=== PATIENT | female | born 1945 | race Caucasian/White ===

== ENCOUNTER 2016-10-25 12:26 | Inpatient (IN) | payer OTHER ==
[2016-10-25 13:05] VITALS: BMI 17.4
--- NOTE | 2016-10-25 17:15 | PDOC ---
History of Present Illness - General Chief Complaint: Weakness Stated Complaint: REVISIT/ FALL, EYE PAIN, VISION LOSS Time Seen by Provider: 10/25/16 15:18 History Source: Patient Exam Limitations: No Limitations - History of Present Illness Initial Comments: 10/25/16 19:06 Patient is a 71 year old female, from [facility], with significant medical hx of dwarfism, SIB, constipation, hypertension, hypothyroidism, cardiac valve defect, hypercholesterolemia, low platelet count, seizures (15-29 years ago), who is presenting to the ED with difficulty ambulating s/p fall. The patient was seen in the ED last night at 4 am after falling out of bed with bruising around her right eye. She received a head CT during her previous visit. The patient returned to the ED today because she is having difficulty ambulating and marine cargo surveyor feels that she needs further evaluation. Patient denies any pain. History may be limited due to the pts MR Past History - Past Medical History Allergies/Adverse Reactions: Allergies Allergy/AdvReac Type Severity Reaction Status Date / Time No Known Allergies Allergy Verified 10/25/16 12:57 Home Medications: Ambulatory Orders Ascorbic Acid [Vitamin C -] 500 mg PO BID 10/26/16 Calcium Carbonate/Vitamin D3 [Oystercal-D 500 mg-400 Unit Tb] 1 each PO BID 12/07 Clotrimazole [Lotrimin AF] 12 gm TP BID 10/26/16 Eltrombopag Olamine [Promacta] 25 mg PO DAILY 10/26/16 Lactulose [Cephulac -] 10 gm PO DAILY 10/26/16 Levothyroxine [Synthroid -] 50 mcg PO ASDIR 10/26/16 Multivitamins [Tab-A-Vit -] 1 tab PO DAILY 10/26/16 Seizures: Yes Thyroid Disease: Yes (HYPO) Other medical history: MR - Psycho/Social/Smoking Cessation Hx Suicidal Ideation: No Smoking History: Never smoked Have you smoked in the past 12 months: No Hx Alcohol Use: No Drug/Substance Use Hx: No Review of Systems - Review of Systems Able to Perform ROS?: Yes Comments:: 10/25/16 19:07 limited due to MR *Physical Exam - Vital Signs Last Vital Signs Temp Pulse Resp BP Pulse Ox 68 19 144/82 97 10/25/16 12:57 10/25/16 12:57 10/25/16 12:57 10/25/16 12:57 - Physical Exam Comments: 10/25/16 19:08 GENERAL: The patient is awake, alert, Nontoxic - in no acute distress. HEAD: Normocephalic, periorbitla ecchymosis/edema, no focal tenderness on orbits. EYES: EOMI of R eye, pupils 3mma nd reactive to light, (gaze deviation of the L eye - chronic), pt able to track my fingers and face ENT: Normal voice, Moist mucous membranes. NECK: Normal range of motion, supple, no midline cervical/thoraicic/lumbar tenderness LUNGS: Breath sounds equal, clear to auscultation bilaterally. No wheezes, no rhonchi, no rales. HEART: Regular rate and rhythm, ABDOMEN: Soft, nontender, normoactive bowel sounds. EXTREMITIES: Normal range of motion, no edema. No clubbing or cyanosis. No cords, erythema, or tenderness. NEUROLOGICAL: No facial assymetry, Normal speech, moving all 4 extmreiities spontnaoeusly and symmetircly SKIN: Warm, Dry, normal turgor, ED Treatment Course - LABORATORY CBC & Chemistry Diagram: 10/28/16 06:15 10/27/16 06:15 Medical Decision Making - Medical Decision Making 10/25/16 17:36 71y F hx of MR, ?thrombocytopenia represents to the ED for evaluation of ? vision changes in her R eye s/p fall and evaluation last night and had negative imaging and was discharged. Per aide, the pt was walking alittle unsteady earlier today so she was brought back for reevaluation. The pt dnies any current headache, the pt also states she is able to see, however her history may be limited due to the patients MR. livingston is able to see grossly, but ability to evaluate her vision is limited due to the patients MR - unclear if she can count, and she cannot read. will send labs to r/o low platelets the pt is able to ambulate, although alittle slowly. neuro exam otherwise unremarkable suspect the slow gait may be due to her vision obsruction due to periorbital edema. 10/25/16 19:51 awaiting platelets will sign the pt ou tto dr. gaines to fu with labs and dispo the patient if platelets lwo will obtain repeat CT if neg will dc the pt to fu with opthomalogy for further evaluation. *DC/Admit/Observation/Transfer Diagnosis at time of Disposition: Closed head injury, Thrombocytopenia - Discharge Dispostion Disposition: TRANSFER ACUTE CARE/OTHER HOSP
[2016-10-25 22:26] LABS: BASOPHIL 0.2 % (0-2.0); EOSINOPHIL 4.3 % (0-4.5); MCH 34.2 pg (25.7-33.7); MCHC 34.3 g/dl (32.0-36.0); MEAN CELL VOLUME 99.7 fl (80-96); MEAN PLT VOLUME 12.6 fl (7.5-11.1); NEUTROPHILS 50.5 % (42.8-82.8); RDW 14.6 % (11.6-15.6); WHITE BLOOD COUNT 3.1 K/mm3 (4.0-10.0)
[2016-10-25 22:47] LABS: ALBUMIN 3.4 g/dl (3.4-5.0); CALCIUM 9.6 mg/dL (8.5-10.1)
[2016-10-25 22:48] LABS: BILIRUBIN,TOTAL 0.3 mg/dL (0.2-1.0)
[2016-10-25 23:02] LABS: PLATELET COUNT 6 K/MM3 (134-434)
--- NOTE | 2016-10-25 23:10 | PDOC ---
*Physical Exam - Vital Signs Last Vital Signs Temp Pulse Resp BP Pulse Ox 68 19 144/82 97 10/25/16 12:57 10/25/16 12:57 10/25/16 12:57 10/25/16 12:57 <Rob Cummings - Last Filed: 10/25/16 23:18> - Vital Signs Last Vital Signs Temp Pulse Resp BP Pulse Ox 68 19 144/82 97 10/25/16 12:57 10/25/16 12:57 10/25/16 12:57 10/25/16 12:57 <Lizzy Delacruz - Last Filed: 10/26/16 02:15> Heart Score/ECG Review - ECG Impressions Comment:: 10/26/16 02:14 NSR @70bpm Normal ECG <Lizzy Delacruz - Last Filed: 10/26/16 02:15> ED Treatment Course - LABORATORY CBC & Chemistry Diagram: 10/25/16 21:55 10/25/16 21:55 - ADDITIONAL ORDERS Additional order review: Laboratory Results 10/25/16 10/25/16 21:55 18:03 Sodium 146 H Cancelled Potassium 4.0 Cancelled Chloride 106 Cancelled Carbon Dioxide 33 H Cancelled Anion Gap 7 L Cancelled BUN 26 H Cancelled Creatinine 1.0 Cancelled Creat Clearance w eGFR 54.97 Cancelled Random Glucose 87 Cancelled Calcium 9.6 Cancelled Total Bilirubin 0.3 Cancelled AST 71 H Cancelled ALT 81 H Cancelled Alkaline Phosphatase 90 Cancelled Total Protein 7.0 Cancelled Albumin 3.4 Cancelled 10/25/16 10/25/16 21:55 18:03 RBC 3.28 L MCV 99.7 H MCHC 34.3 RDW 14.6 MPV 12.6 H Neutrophils % 50.5 Y Lymphocytes % 36.7 Y Monocytes % 8.3 Eosinophils % 4.3 Basophils % 0.2 - RADIOLOGY Radiology Studies Ordered: Category Date Time Status HEAD CT WITHOUT CONTRAST [CT] Stat CT Scan 10/25/16 23:01 Ordered <Rob Cummings - Last Filed: 10/25/16 23:18> - LABORATORY CBC & Chemistry Diagram: 10/25/16 21:55 10/25/16 21:55 - ADDITIONAL ORDERS Additional order review: Laboratory Results 10/25/16 10/25/16 21:55 18:03 Sodium 146 H Cancelled Potassium 4.0 Cancelled Chloride 106 Cancelled Carbon Dioxide 33 H Cancelled Anion Gap 7 L Cancelled BUN 26 H Cancelled Creatinine 1.0 Cancelled Creat Clearance w eGFR 54.97 Cancelled Random Glucose 87 Cancelled Calcium 9.6 Cancelled Total Bilirubin 0.3 Cancelled AST 71 H Cancelled ALT 81 H Cancelled Alkaline Phosphatase 90 Cancelled Total Protein 7.0 Cancelled Albumin 3.4 Cancelled 10/25/16 10/25/16 21:55 18:03 RBC 3.28 L MCV 99.7 H MCHC 34.3 RDW 14.6 MPV 12.6 H Neutrophils % 50.5 Y Lymphocytes % 36.7 Y Monocytes % 8.3 Eosinophils % 4.3 Basophils % 0.2 <Lizzy Delacruz - Last Filed: 10/26/16 02:15> Medical Decision Making - Medical Decision Making 10/25/16 23:15 h/o of thrombocytopenia. As per the power tool repair technician, patients platelets usually run between 30,000 and 60,000. Labs came, showing that patients platelets are 6, 000. No signs of active bleeding at this time. Repeat CT to r/o brain hemorrhage <Lizzy Delacruz - Last Filed: 10/26/16 02:15> *DC/Admit/Observation/Transfer - Discharge Dispostion Admit: Yes <Rob Cummings - Last Filed: 10/25/16 23:18> <Lizzy Delacruz - Last Filed: 10/26/16 02:15> Diagnosis at time of Disposition: Closed head injury, Thrombocytopenia
[2016-10-26 00:57] LABS: INR 0.95 (0.82-1.09); PROTHROMBIN TIME (PATIENT) 10.4 SEC (9.98-11.88)
--- NOTE | 2016-10-26 00:57 | HP ---
CHIEF COMPLAINT: Falls, Unsteady gait, easy bruising PCP: Not on Staff Acute Care Clinical Nurse Specialist: Dr. Sahu [facility] ([address] [place] [address]) [phone] HISTORY OF PRESENT ILLNESS: This is a 71 y/o female with a past medical history of Dwarfism, SIB, Constipation, Hypertension, Hypothyroidism, Cardiac Valve Defect.Who is presents to the ED with difficulty ambulating s/p fall. The patient was seen in the ED last night at 4 am after falling out of bed with bruising around her right eye. She received a head CT during her previous visit. The patient returned to the ED today because she is having difficulty ambulating and economics consultant feels that she needs further evaluation. Per caregiver patient has been bruising more easily x 1 week. She reports the patient's baseline PLTs- 30, 000- 40,000. Patient denies any pain. History may be limited due to the pts MR. ER course was notable for: (1) Platelets 6,000 (2) Head CT- neg ICH (3) EKG-pending Recent Travel: None PAST MEDICAL HISTORY: See HPI PAST SURGICAL HISTORY: See HPI Social History: Smoking: None Alcohol: None Drugs: None Resides in [facility] Family History: Unknown Allergies No Known Allergies Allergy (Verified 10/25/16 12:57) HOME MEDICATIONS: Home Medications Medication Instructions Recorded Ascorbic Acid [Vitamin C -] 500 mg PO BID 10/26/16 Calcium Carbonate/Vitamin D3 1 each PO BID 10/26/16 [Oystercal-D 500 mg-400 Unit Tb] Clotrimazole [Lotrimin AF] 12 gm TP BID 10/26/16 Eltrombopag Olamine [Promacta] 25 mg PO DAILY 10/26/16 Lactulose [Cephulac -] 10 gm PO DAILY 10/26/16 Levothyroxine [Synthroid -] 50 mcg PO ASDIR 10/26/16 Multivitamins [Tab-A-Vit -] 1 tab PO DAILY 10/26/16 REVIEW OF SYSTEMS Per patient's Guardian (patient has MR) CONSTITUTIONAL: Absent: fever, chills, diaphoresis, generalized weakness, malaise, loss of appetite, weight change HEENT: Absent: rhinorrhea, nasal congestion, throat pain, throat swelling, difficulty swallowing, mouth swelling, ear pain, eye pain, visual changes CARDIOVASCULAR: Absent: chest pain, syncope, palpitations, irregular heart rate, lightheadedness , peripheral edema RESPIRATORY: Absent: cough, shortness of breath, dyspnea with exertion, orthopnea, wheezing, stridor, hemoptysis GASTROINTESTINAL: Absent: abdominal pain, abdominal distension, nausea, vomiting, diarrhea, constipation, melena, hematochezia GENITOURINARY: Absent: dysuria, frequency, urgency, hesitancy, hematuria, flank pain, genital pain MUSCULOSKELETAL: Absent: myalgia, arthralgia, joint swelling, back pain, neck pain SKIN: Absent: rash, itching, pallor HEMATOLOGIC/IMMUNOLOGIC: easy bruising Absent: easy bleeding, lymphadenopathy, frequent infections ENDOCRINE: Absent: unexplained weight gain, unexplained weight loss, heat intolerance, cold intolerance NEUROLOGIC: unsteady gait Absent: headache, focal weakness or paresthesias, dizziness, seizure, mental status changes, bladder or bowel incontinence PSYCHIATRIC: Absent: anxiety, depression, suicidal or homicidal ideation, hallucinations. PHYSICAL EXAMINATION Vital Signs - 24 hr 10/25/16 12:57 Pulse Rate 68 Respiratory 19 Rate Blood Pressure 144/82 O2 Sat by Pulse 97 Oximetry (%) GENERAL: Awake, alert, and oriented to baseline, in no acute distress. HEAD: Normal with no signs of trauma. EYES: +eccyhomtic bruising, swelling to r-eye/orbit EARS, NOSE, THROAT: Ears normal, nares patent, oropharynx clear without exudates. Moist mucous membranes. NECK: Normal range of motion, supple without lymphadenopathy, JVD, or masses. LUNGS: Breath sounds equal, clear to auscultation bilaterally. No wheezes, and no crackles. No accessory muscle use. HEART: Regular rate and rhythm, normal S1 and S2 without murmur, rub or gallop. ABDOMEN: Soft, nontender, not distended, normoactive bowel sounds, no guarding, no rebound, no masses. No hepatomegaly or splenomegaly. MUSCULOSKELETAL: Normal range of motion at all joints. No bony deformities or tenderness. No CVA tenderness. UPPER EXTREMITIES: 2+ pulses, warm, well-perfused. No cyanosis. No clubbing. No peripheral edema. LOWER EXTREMITIES: 2+ pulses, warm, well-perfused. No calf tenderness. No peripheral edema. NEUROLOGICAL: Cranial nerves II-XII intact. Normal speech. Gait not observed. PSYCHIATRIC: Cooperative. Limited eye contact. Appropriate mood and affect. SKIN: +petecchial rash to lower legs. Warm, dry, normal turgor, eccyhmotic bruising to bilateral medial upper thighs noted, normal capillary refill. Laboratory Results - last 24 hr 10/25/16 10/25/16 10/25/16 18:03 18:03 21:55 WBC 3.1 L RBC 3.28 L Hgb 11.2 Hct 32.7 MCV 99.7 H MCHC 34.3 RDW 14.6 Plt Count 6 L* MPV 12.6 H Neutrophils % Y 50.5 Lymphocytes % Y 36.7 Monocytes % 8.3 Eosinophils % 4.3 Basophils % 0.2 Sodium Cancelled Potassium Cancelled Chloride Cancelled Carbon Dioxide Cancelled Anion Gap Cancelled BUN Cancelled Creatinine Cancelled Creat Clearance w eGFR Cancelled Random Glucose Cancelled Calcium Cancelled Total Bilirubin Cancelled AST Cancelled ALT Cancelled Alkaline Phosphatase Cancelled Total Protein Cancelled Albumin Cancelled 10/25/16 21:55 WBC RBC Hgb Hct MCV MCHC RDW Plt Count MPV Neutrophils % Lymphocytes % Monocytes % Eosinophils % Basophils % Sodium 146 H Potassium 4.0 Chloride 106 Carbon Dioxide 33 H Anion Gap 7 L BUN 26 H Creatinine 1.0 Creat Clearance w eGFR 54.97 Random Glucose 87 Calcium 9.6 Total Bilirubin 0.3 AST 71 H ALT 81 H Alkaline Phosphatase 90 Total Protein 7.0 Albumin 3.4 ASSESSMENT/PLAN: This is a 71 y/o female with a PMHx of Dwarfism, SIB, HTN, Hypothyroidism, Cardiac Valve Defect. Admitted for Acute Thrombocytopenia for further evaluation of their emergent condition. Problem List - Problem (1) Closed head injury Assessment/Plan: - s/p fall OOB - CT Brain- neg ICH - Fall Precautions Code(s): S09.90XA - UNSPECIFIED INJURY OF HEAD, INITIAL ENCOUNTER (2) Contusion of right orbital tissues Assessment/Plan: - s/p Fall OOB - CT Brain- no ICH - Continue to monitor and treat with interventions accordingly - Tylenol prn Code(s): S05.11XA - CONTUSION OF EYEBALL AND ORBITAL TISSUES, RIGHT EYE, INIT (3) Thrombocytopenia Assessment/Plan: - Baseline (30-40,000) per patient's Guardian at [facility] - Platelets x1 given on floor - Continue Promacta - Appreciate Acute Care Clinical Nurse Specialist Consult - Monitor CBC - Monitor vitals Code(s): D69.6 - THROMBOCYTOPENIA, UNSPECIFIED (4) Dwarfism Code(s): E34.3 - SHORT STATURE DUE TO ENDOCRINE DISORDER (5) Hypertension Assessment/Plan: - Monitor BP - Continue home med Code(s): I10 - ESSENTIAL (PRIMARY) HYPERTENSION (6) Hypothyroid Assessment/Plan: - Continue home med - TSH in am Code(s): E03.9 - HYPOTHYROIDISM, UNSPECIFIED (7) DVT prophylaxis Assessment/Plan: - TEDs - SCDs - Hold AC secondary to Low Platelets Code(s): LPQ5082 - Visit type - Emergency Visit Emergency Visit: Yes ED Registration Date: 10/25/16 Care time: The patient presented to the Emergency Department on the above date and was hospitalized for further evaluation of their emergent condition. - New Patient This patient is new to me today: Yes Date on this admission: 10/26/16 - Critical Care Critical Care patient: No
[2016-10-26] MEDS ORDERED: LEVOTHYROXINE NA 50 MCG TABLET (FP) PO SCH (08:00)
[2016-10-26] MEDS ORDERED: PT OWN MED DRAWER 7, Y5N ONE ×2 (09:08→12:33)
[2016-10-26] MEDS: ASCORBIC ACID 500 MG TABLET (FP) PO SCH ×2 (09:24→22:17)
[2016-10-26] MEDS: CALCIUM 500MG/VIT-D 200 UNITS COMBO TABLET (FP) PO SCH ×2 (09:24→22:12)
[2016-10-26] MEDS: MULTIVITAMINS (DAILY MVI) TABLET (FP) PO SCH (09:24)
[2016-10-26] MEDS: LACTULOSE 20 GM/30 ML UDC (FOR ORAL USE ONLY) PO SCH (09:25)
[2016-10-26 09:28] LABS: BASOPHIL 0.1 % (0-2.0); EOSINOPHIL 2.5 % (0-4.5); MCH 34.3 pg (25.7-33.7); MEAN CELL VOLUME 100.8 fl (80-96); MEAN PLT VOLUME 8.9 fl (7.5-11.1); NEUTROPHILS 78.7 % (42.8-82.8); PLATELET COUNT 105 K/MM3 (134-434); RDW 14.6 % (11.6-15.6); WHITE BLOOD COUNT 5.1 K/mm3 (4.0-10.0)
[2016-10-26] MEDS: LEVOTHYROXINE NA 50 MCG TABLET (FP) PO SCH (11:08)
--- NOTE | 2016-10-26 11:20 | EKG ---
Test Reason : Blood Pressure : / mmHG Vent. Rate : 070 BPM Atrial Rate : 070 BPM P-R Int : 120 ms QRS Dur : 066 ms QT Int : 394 ms P-R-T Axes : 064 067 038 degrees QTc Int : 425 ms POOR DATA QUALITY, INTERPRETATION MAY BE ADVERSELY AFFECTED NORMAL SINUS RHYTHM NORMAL ECG NO PREVIOUS ECGS AVAILABLE Confirmed by MARCO ANTONIO DENNISON MD ([id number]) on 10/26/2016 11:19:43 AM Referred By: Confirmed By:MARCO ANTONIO DENNISON MD
[2016-10-26] MEDS: CLOTRIMAZOLE 1% CREAM 15 GM TUBE TP SCH ×2 (11:40→22:17)
[2016-10-26] MEDS: ELTROMBOPAG OLAMINE 25 MG PO SCH (12:30)
[2016-10-27] MEDS: LEVOTHYROXINE NA 50 MCG TABLET (FP) PO SCH (06:08)
[2016-10-27 08:17] LABS: BASOPHIL 0.5 % (0-2.0); MCH 34.6 pg (25.7-33.7); MCHC 34.1 g/dl (32.0-36.0); MEAN CELL VOLUME 101.3 fl (80-96); MEAN PLT VOLUME 10.2 fl (7.5-11.1); NEUTROPHILS 40.6 % (42.8-82.8); PLATELET COUNT 53 K/MM3 (134-434); RDW 14.7 % (11.6-15.6); WHITE BLOOD COUNT 2.9 K/mm3 (4.0-10.0)
[2016-10-27 08:42] LABS: BILIRUBIN,TOTAL 0.3 mg/dL (0.2-1.0); CALCIUM 9.3 mg/dL (8.5-10.1); MAGNESIUM 1.7 mg/dL (1.8-2.4); PHOSPHOROUS 2.6 mg/dL (2.5-4.9); TOT PROT 6.1 g/dl (6.4-8.2)
[2016-10-27] MEDS ORDERED: PT OWN MED DRAWER 7, Y5N ONE ×3 (10:53→14:53)
[2016-10-27] MEDS: CALCIUM 500MG/VIT-D 200 UNITS COMBO TABLET (FP) PO SCH ×2 (10:54→21:11)
[2016-10-27] MEDS: ELTROMBOPAG OLAMINE 25 MG PO SCH (10:54)
[2016-10-27] MEDS: ASCORBIC ACID 500 MG TABLET (FP) PO SCH ×2 (10:54→21:11)
[2016-10-27] MEDS: MULTIVITAMINS (DAILY MVI) TABLET (FP) PO SCH (10:54)
[2016-10-27] MEDS: LACTULOSE 20 GM/30 ML UDC (FOR ORAL USE ONLY) PO SCH (10:54)
[2016-10-27] MEDS: CLOTRIMAZOLE 1% CREAM 15 GM TUBE TP SCH ×2 (10:55→22:17)
--- NOTE | 2016-10-27 12:53 | CONSULT ---
Consult Consult Specialty:: Hematology Referred by:: George Negrete Reason for Consultation:: severely low platelets on admission after a fall - History of Present Illness Chief Complaint: s/p fall, injured R orbital area History of Present Illness: 71 y/o F w hx dwarfism , MR, living at [place] , reportedly fell and hit R side of head ; CT head on admission showed no bleed , but pt had large ecchymotic R periorbital area ; no change in MS or blackout reported. She is a long-time patient w ITP who has been refractory to several standard Rx's such as IVIg and steroids ; recently pt on Promacta 25mg qd but it appears it is not keeping platelets >10K. After platelet Tx here plates >50 K , but likely to fall again . - History Source History Provided By: Medical Record Limitations to Obtaining History: Physical Impairment - Past Medical History WOOLEN TESTER: Yes: Other Cardio/Vascular: Yes: HTN Pulmonary: No: Asthma, Bronchitis, Cancer, COPD, O2 Dependent, Pneumonia, Previously Intubated, Pulmonary Embolus, Pulmonary Fibrosis, Sleep Apnea, Other Gastrointestinal: Yes: Constipation. No: Ascites, Cancer, Crohn's Disease, Diverticulitis, Diverticulosis, Esophageal Varices, Gastritis, GERD, GI Bleed, Hemorrhoids, Hiatal Hernia, Inflamatory Bowel Disease, Irritable Bowel Disease, Pancreatitis, Peptic Ulcer Disease, Ulcerative Colitis, Other Hepatobiliary: No: Cirrhosis, Cholelithiasis, Cholecystitis, Choledocholithiasis , Hepatitis A, Hepatitis B, Hepatitis C, Other Renal/: No: Renal Failure, Renal Inusuff, BPH, Cancer, Hematuria, Hemodialysis , Neurogenic Bladder, Renal Calculi, UTI, Other Heme/Onc: Yes: Thrombocytopenia Infectious Disease: No: AIDS, C-Diff, Herpes Zoster, HIV, MRSA, STD's, Tuberculosis, VREF, Other Psych: Yes: Other (MR/Dwarfism) Musculoskeletal: No: Bursitis, Chronic low back pain, Hemiparesis, Hemiplegia, Osteoarthritis, Paraplegia, Other Rheumatology: No: Fibromyalgia, Gout, Lupus, Rheumatoid Arthritis, Sarcoidosis, Vasculitis, Other Endocrine: Yes: Hypothyroidism Dermatology: No: Basal Cell, Cellulitis, Eczema, Melanoma, Psoriasis, Squamous Cell, Other - Past Surgical History Past Surgical History: Yes: None - Alcohol/Substance Use Hx Alcohol Use: No - Smoking History Smoking history: Never smoked Have you smoked in the past 12 months: No Home Medications - Allergies Allergies/Adverse Reactions: Allergies Allergy/AdvReac Type Severity Reaction Status Date / Time No Known Allergies Allergy Verified 10/25/16 12:57 - Home Medications Home Medications: Ambulatory Orders Ascorbic Acid [Vitamin C -] 500 mg PO BID 10/26/16 Calcium Carbonate/Vitamin D3 [Oystercal-D 500 mg-400 Unit Tb] 1 each PO BID 12/07 Clotrimazole [Lotrimin AF] 12 gm TP BID 10/26/16 Eltrombopag Olamine [Promacta] 25 mg PO DAILY 10/26/16 Lactulose [Cephulac -] 10 gm PO DAILY 10/26/16 Levothyroxine [Synthroid -] 50 mcg PO ASDIR 10/26/16 Multivitamins [Tab-A-Vit -] 1 tab PO DAILY 10/26/16 Review of Systems Unable to obtain ROS, reason: MR Physical Exam Vital Signs: Vital Signs Temperature 97.5 F L 10/27/16 09:00 Pulse Rate 80 10/27/16 09:00 Respiratory Rate 20 10/27/16 09:00 Blood Pressure 125/65 10/27/16 09:00 O2 Sat by Pulse Oximetry (%) 96 10/26/16 21:00 Constitutional: Yes: Well Nourished, No Distress, Calm Eyes: Yes: WNL, Conjunctiva Clear, EOM Intact HENT: Yes: Other (ecchymosis) Neck: Yes: WNL, Supple, Trachea Midline Cardiovascular: Yes: WNL, Regular Rate and Rhythm Respiratory: Yes: WNL, Regular, CTA Bilaterally Gastrointestinal: Yes: WNL, Normal Bowel Sounds, Soft Musculoskeletal: Yes: WNL Edema: No Integumentary: Yes: WNL (except for eyelid) Labs: CBC, BMP 10/27/16 06:15 10/27/16 06:15 Problem List - Problems (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 She will have to be monitored closely dy Dr Sahu at the [facility]. Continue Promacta for now
[2016-10-27] MEDS ORDERED: POTASSIUM CHLORIDE ORAL LIQUID 20 MEQ/15 ML PO ONE (13:15)
[2016-10-27] MEDS ORDERED: MAGNESIUM SULF 50% (8.12 MEQ/2 ML-1 GM VIAL) IVPB ONE (13:15)
[2016-10-27 15:29] LABS: URINE APPEARANCE CLEAR; URINE BILIRUBIN NEGATIVE (NEGATIVE); URINE BLOOD NEGATIVE (NEGATIVE); URINE COLOR LTYELLOW; URINE GLUCOSE (UA) NEGATIVE (NEGATIVE); URINE KETONE NEGATIVE (NEGATIVE); URINE LEUK ESTERASE NEGATIVE (NEGATIVE); URINE NITRITE NEGATIVE (NEGATIVE); URINE PROTEIN NEGATIVE (NEGATIVE); URINE UROBILINOGEN NEGATIVE E.U./dl (0.2-1.0)
--- NOTE | 2016-10-27 17:44 | PN ---
Physical Exam: SUBJECTIVE: Patient seen and examined. She has no complaints, she is eating on her own. Aid at bedside OBJECTIVE: Vital Signs Period Temp Pulse Resp BP Sys/Rae Pulse Ox Last 24 Hr 97.1 F-97.8 F 57-82 18-20 97-125/52-65 96-98 PE Neuro: alert, awake, cn 2-12intact HEENT: R eye hematoma, R eye visual acuity diminished Pulm: CTAB CV: s1 s2 rrr no mrg Abd: s nt nd +bs Ext: le petechiae, no le edema Laboratory Results - last 24 hr 10/27/16 10/27/16 10/27/16 06:15 06:15 14:30 WBC 2.9 L D RBC 2.71 L Hgb 9.4 L Hct 27.4 L MCV 101.3 H MCHC 34.1 RDW 14.7 Plt Count 53 L D MPV 10.2 D Neutrophils % 40.6 L D Lymphocytes % 37.8 D Monocytes % 14.1 H D Eosinophils % 7.0 H D Basophils % 0.5 D Sodium 147 H Potassium 3.4 L Chloride 107 Carbon Dioxide 35 H Anion Gap 5 L BUN 20 H D Creatinine 1.0 Creat Clearance w eGFR 54.97 Random Glucose 76 Calcium 9.3 Phosphorus 2.6 Magnesium 1.7 L Total Bilirubin 0.3 AST 52 H D ALT 69 Alkaline Phosphatase 76 Total Protein 6.1 L Albumin 3.0 L Urine Color Ltyellow Urine Appearance Clear Urine pH 7.0 Ur Specific [place] 1.009 Urine Protein Negative Urine Glucose (UA) Negative Urine Ketones Negative Urine Blood Negative Urine Nitrite Negative Urine Bilirubin Negative Urine Urobilinogen Negative Ur Leukocyte Esterase Negative Active Medications Generic Name Dose Route Start Last Admin Trade Name Anselmoq PRN Reason Stop Dose Admin Ascorbic Acid 500 mg 10/26/16 10:00 10/27/16 10:54 Vitamin C - PO 500 mg BID BENNY Administration Calcium Carbonate/Cholecalciferol 1 tab 10/26/16 10:00 10/27/16 10:54 Os-Blayne 500+D - PO 1 tab BID BENNY Administration Clotrimazole 1 applic 10/26/16 10:00 10/27/16 10:55 Lotrimin 1% Cream - TP 1 applic BID BENNY Administration Lactulose 10 gm 10/26/16 10:00 10/27/16 10:54 Cephulac (Oral Use) PO 10 gm DAILY BENNY Administration Levothyroxine Sodium 50 mcg 10/26/16 10:15 10/27/16 06:08 Synthroid - PO 50 mcg DAILY@0700 BENNY Administration Multivitamins/Minerals/Vitamin C 1 tab 10/26/16 10:00 10/27/16 10:54 Tab-A-Vit - PO 1 tab DAILY BENNY Administration Non-Formulary Medication 25 mg 10/26/16 11:30 10/27/16 10:54 Eltrombopag Olamine [Promacta] PO 25 mg DAILY BENNY Administration Assessment: 71 year old female hx dwarfism, MR, living at [place] admitted s/p fall to R side of head with AMS per AID. Found to have severe thrombocytopenia. Plan: 1. ITP - Transfused 1 units platelets, however now levels downtrending - D/w Hematology, failed several treatment options, since been on Promacta 25mg daily and appears to not be working - Transfer initiated to transfer to [facility] for splenectomy under Primary composing room machinist apprentice service Dr. Sandra Woodson; awaiting confirmation - Discussed with legal guardian aSrah she is aware of transfer and agrees 2.Hypothyroid - Continue synthroid 3. Hypokalemia - Replete 20meq potassium x1 4. Hypomagnesemia - replete 2gm mg x1 Visit type - Emergency Visit Emergency Visit: Yes ED Registration Date: 10/25/16 Care time: The patient presented to the Emergency Department on the above date and was hospitalized for further evaluation of their emergent condition. - New Patient This patient is new to me today: Yes Date on this admission: 10/27/16 - Critical Care Critical Care patient: No
[2016-10-28] MEDS: LEVOTHYROXINE NA 50 MCG TABLET (FP) PO SCH (06:23)
[2016-10-28 06:29] VITALS: BP 95/55; PULSE 81; TEMP 97.5
[2016-10-28] MEDS ORDERED: PT OWN MED DRAWER 7, Y5N ONE (07:29)
[2016-10-28 08:49] LABS: BASOPHIL 0.3 % (0-2.0); EOSINOPHIL 4.6 % (0-4.5); MCH 33.8 pg (25.7-33.7); MCHC 33.3 g/dl (32.0-36.0); MEAN CELL VOLUME 101.3 fl (80-96); MEAN PLT VOLUME 9.8 fl (7.5-11.1); NEUTROPHILS 53.5 % (42.8-82.8)
[2016-10-28 09:12] LABS: PLATELET COUNT 18 K/MM3 (134-434)
--- NOTE | 2016-10-28 12:16 | DS ---
Physical Examination Vital Signs: Vital Signs Temperature 97.5 F L 10/28/16 06:28 Pulse Rate 81 10/28/16 06:28 Respiratory Rate 18 10/28/16 06:28 Blood Pressure 95/55 10/28/16 06:28 O2 Sat by Pulse Oximetry (%) 97 10/27/16 21:00 Labs: CBC, BMP 10/28/16 06:15 10/27/16 06:15 Discharge Summary Reason For Visit: THROMBOCYTOPENIA CLOSED HEAD INJURY Hospital Course: 71 year old female hx dwarfism, MR, living [place] [facility] admitted s/p fall to R side of head with AMS per AID. Found to have severe thrombocytopenia. Plan: 1. ITP - Transfused 1 units platelets, however now levels downtrending - D/w Hematology, failed several treatment options, since been on Promacta 25mg daily and appears to not be working - Transfer initiated to transfer to [facility] for splenectomy under Primary tape recording machine operator service Dr. Sandra Woodson; awaiting confirmation - Discussed with legal guardian Sarah she is aware of transfer and agrees 2.Hypothyroid - Continue synthroid 3. Hypokalemia - Replete 20meq potassium x1 4. Hypomagnesemia - replete 2gm mg x1 Patient transferred to [facility] prior to me evaluating them - Instructions Disposition: TRANSFER ACUTE CARE/OTHER HOSP - Home Medications Comprehensive Discharge Medication List: Ambulatory Orders Ascorbic Acid [Vitamin C -] 500 mg PO BID 10/26/16 Calcium Carbonate/Vitamin D3 [Oystercal-D 500 mg-400 Unit Tb] 1 each PO BID 12/07 Clotrimazole [Lotrimin AF] 12 gm TP BID 10/26/16 Eltrombopag Olamine [Promacta] 25 mg PO DAILY 10/26/16 Lactulose [Cephulac -] 10 gm PO DAILY 10/26/16 Levothyroxine [Synthroid -] 50 mcg PO ASDIR 10/26/16 Multivitamins [Tab-A-Vit -] 1 tab PO DAILY 10/26/16 This patient is new to me today: Yes Date on this admission: 10/28/16 Emergency Visit: Yes ED Registration Date: 10/25/16 Care time: The patient presented to the Emergency Department on the above date and was hospitalized for further evaluation of their emergent condition. Critical Care patient: No - Discharge Referral Referred to [facility] No
== END 2016-10-28 08:16 | disposition short-term general hospital (02) | DRG 813 ==
LOC: JER 12:26 → JERBED 23:18 → UNDOADMIN 10-26 00:30 → J8W 10-26 02:44
PROVIDERS: ADMIT Internal Medicine; ATTEND Registered Nurse
DX: D69.3 Immune thrombocytopenic purpura (principal); E03.9 Hypothyroidism, unspecified; E87.6 Hypokalemia; E83.42 Hypomagnesemia; I10 Essential (primary) hypertension; S09.90XA Unspecified injury of head, initial encounter; W19.XXXA Unspecified fall, initial encounter; Y92.89 Other specified places as the place of occurrence of the external cause; Y99.9 Unspecified external cause status; S05.11XD Contusion of eyeball and orbital tissues, right eye, subsequent encounter; E34.3 Short stature due to endocrine disorder
CPT/HCPCS: 36415; 36430; 70450-TC; 70486-TC; 71010-TC; 80053; 81003; 83605; 83735; 84100; 84443; 85025; 85610; 85730; 86850; 86900; 86901; 87040; 87254; 87804; 93005; 93010; 97116-GP; 97162-PG; 99281-25; 99282-25; 99285-25; P9034

== ENCOUNTER 2018-08-18 11:28 | Emergency (ER) | payer OTHER ==
[2018-08-18 11:38] VITALS: BMI 21.1
[2018-08-18 12:30] VITALS: TEMP 97.1
--- NOTE | 2018-08-18 12:31 | PDOC ---
History of Present Illness - General Chief Complaint: Diarrhea Stated Complaint: DIARRHEA Time Seen by Provider: 08/18/18 11:57 - History of Present Illness Initial Comments: Kandice Ta is a 73yo woman with dwarfism, intellectual disability, HTN, HLD , s/p splenectomy, h/o seizures (most recent 15-20yrs ago), hypothyroidism, thrombocytopenia, and chronic constipation on lactulose TID who presents with one episode of diarrhea this morning. She was sent by her facility ([facility]) to rule out influenza as other pts there currently have the flu. Ms Ta is minimally verbal and is unable to provide any history. She presents with an aide from [facility] who is unfamiliar with her medical history. As far as she is aware , Ms Ta has not had any recent fevers or respiratory symptoms. Past History - Past Medical History Allergies/Adverse Reactions: Allergies Allergy/AdvReac Type Severity Reaction Status Date / Time No Known Allergies Allergy Verified 08/18/18 11:38 Home Medications: Ambulatory Orders Calcium Carbonate/Vitamin D3 [Oystercal-D 500 mg-400 Unit Tb] 1 each PO BID 12/07 Clotrimazole [Lotrimin AF] 12 gm TP BID 10/26/16 Lactulose [Cephulac -] 10 gm PO DAILY 10/26/16 Levothyroxine [Synthroid -] 50 mcg PO ASDIR 10/26/16 Pedi Multivit 158/Iron/Vit K1 [Cerovite Jr Tablet Chew] 1 tab PO DAILY 08/18/18 COPD: No Seizures: Yes Thyroid Disease: Yes (HYPO) - Suicide/Smoking/Psychosocial Hx Smoking History: Never smoked Have you smoked in the past 12 months: No Hx Alcohol Use: No Drug/Substance Use Hx: No Review of Systems - Review of Systems Comments:: Could not obtain, patient minimally verbal *Physical Exam - Vital Signs Last Vital Signs Temp Pulse Resp BP Pulse Ox 97.1 F L 56 L 18 139/71 97 08/18/18 12:28 08/18/18 11:34 08/18/18 11:34 08/18/18 11:34 08/18/18 11:34 - Physical Exam Comments: General: Comfortable, no acute distress HEENT: PERRL, EOMI, MMM, no LAD, several missing teeth Cards: RRR, no murmur appreciated Pulm: Comfortable on room air, clear to auscultation bilaterally Abd: Soft, nontender, nondistended Ext: Atraumatic. No LE edema. Moves all extremities Vasc: Extremities WWP. Skin: Normal color, no rashes or lesions Neuro: Awake and alert, states name, CN grossly intact, motor/sensory grossly intact and symmetric Psych: Pleasant and cooperative Moderate Sedation - Procedure Monitoring Vital Signs: Procedure Monitoring Vital Signs Temperature 97.1 F L 08/18/18 12:28 Pulse Rate 56 L 08/18/18 11:34 Respiratory Rate 18 08/18/18 11:34 Blood Pressure 139/71 08/18/18 11:34 O2 Sat by Pulse Oximetry (%) 97 08/18/18 11:34 ED Treatment Course - LABORATORY CBC & Chemistry Diagram: 08/18/18 12:55 08/18/18 12:55 Medical Decision Making - Medical Decision Making 08/18/18 12:30 Kandice Ta is a 73yo woman with dwarfism, intellectual disability, HTN, HLD , s/p splenectomy, h/o seizures (most recent 15-20yrs ago), hypothyroidism, thrombocytopenia, and chronic constipation on lactulose TID who presents with one episode of diarrhea this morning. She was sent by her facility ([facility]) to rule out influenza as other pts there currently have the flu. - With one episode of loose stool, especially with h/o lactulose TID and benign abdominal exam, low suspicion for infection. Influenza swab ordered - Oral temp 97.1, difficult to obtain accurately as Ms Ta is unable to cooperate. Rectal temp ordered - If flu negative, will most likely d/c back to her facility. 08/18/18 12:38 - Per aide, Ms Ta has had 2-3 episode of loose stools starting last night. She expressed more concern for dehydration than influenza - CBC, CMP ordered. If needed, will give IVF. 08/18/18 13:47 - Labs reviewed, unremarkable. BUN slightly elevated but unchanged from only previous labs - Influenza negative - Will d/c back to [facility] after fluid bolus 08/18/18 14:38 - Discussed care and follow up with Ms Ta's aide - IV removed, given d/c instructions Discussed with Dr Vegas. Lorenza Mariee PGY1 *DC/Admit/Observation/Transfer Diagnosis at time of Disposition: Diarrhea - Discharge Dispostion Disposition: HOME Condition at time of disposition: Stable Decision to Admit order: No - Referrals - Patient Instructions Printed Discharge Instructions: DI for Diarrhea and Traveler's Diarrhea -- Adult Additional Instructions: Discharge Instructions: - You were seen in the emergency department for diarrhea. - Blood tests were completed, and the results were normal. There was no sign of infection or dehydration - You were given a 500mL fluid bolus - Your diarrhea may be due to one of your medications, lactulose. It is recommended that you stop taking this medication until you can follow up with your regular doctor. - Make an appointment to be seen by your regular doctor within the next 2-3 days to see if you need your medications changed and to follow up any continued loose stools. - Seek immediate medical care if you develop fevers or abdominal pain with your diarrhea, or if you have any medical emergency. - Post Discharge Activity
[2018-08-18] MEDS ORDERED: SODIUM CHLORIDE 0.9% 500 ML INFUS.BAG IV ONE (12:58)
[2018-08-18 13:16] LABS: BASO % 0.2 % (0-2.0); EOS % 2.5 % (0-4.5); HEMOGLOBIN 13.7 GM/dL (10.7-15.3); LYMPH % 33.7 % (8-40); MCH 36.6 pg (25.7-33.7); MCHC 35.1 g/dl (32.0-36.0); MEAN CELL VOLUME 104.2 fl (80-96); MEAN PLT VOLUME 10.4 fl (7.5-11.1); MONO % 14.4 % (3.8-10.2); NEUT % 49.2 % (42.8-82.8); PLATELET COUNT 140 K/MM3 (134-434); RBC 3.74 M/mm3 (3.60-5.2); RDW 14.6 % (11.6-15.6); WHITE BLOOD COUNT 3.2 K/mm3 (4.0-10.0)
[2018-08-18 13:39] LABS: ALBUMIN 3.7 g/dl (3.4-5.0); ALK PHOS 85 U/L (45-117); ANION GAP 5 MMOL/L (8-16); BILIRUBIN,TOTAL 0.2 mg/dL (0.2-1); BLOOD UREA NITROGEN 23 mg/dL (7-18); CALCIUM 9.5 mg/dL (8.5-10.1); CHLORIDE 108 mmol/L (98-107); CO2 29 mmol/L (21-32); CREATININE 0.9 mg/dL (0.55-1.3); GLUCOSE,RANDOM 101 mg/dL (74-106); POTASSIUM 3.9 mmol/L (3.5-5.1); SGOT/AST 37 U/L (15-37); SGPT/ALT 35 U/L (13-61); SODIUM 142 mmol/L (136-145); TOT PROT 7.4 g/dl (6.4-8.2)
--- NOTE | 2018-08-18 14:10 | PDOC ---
Attending Attestation - Resident Resident Name: Lorenza Mariee - ED Attending Attestation I have performed the following: I have examined & evaluated the patient, The case was reviewed & discussed with the resident, I agree w/resident's findings & plan, Exceptions are as noted - HPI HPI: 08/18/18 14:07 73 yo F with h/o MR dwarfism, htn, constipation , nonverbal here wtih concerns for 3 loose stools today. pt has been taking lactulose however for constipation[facility], so they were concerned she may have the flue. no f/c no other concerns. - Physicial Exam PE: 08/18/18 14:09 awake alert eyes open. lungs clear bilat heart rrr no mrg abd soft nt nd. ext wwp no rash. smiling on exam. - Medical Decision Making 08/18/18 14:09 differential effect of lactulose, dehydration electrolyte abnormality. plan labs flu . labs unremarkable, given 20 ml/ kg bolus. flu negative. dc home.
[2018-08-18 14:54] VITALS: BP 132/72; PULSE 61
== END 2018-08-18 14:30 | disposition home or self-care (01) ==
LOC: JER 11:28
DX: R19.7 Diarrhea, unspecified (principal); I10 Essential (primary) hypertension; E78.5 Hyperlipidemia, unspecified; E03.9 Hypothyroidism, unspecified; K59.04 Chronic idiopathic constipation; E34.3 Short stature due to endocrine disorder; F79 Unspecified intellectual disabilities; D69.6 Thrombocytopenia, unspecified; Z86.69 Personal history of other diseases of the nervous system and sense organs; Z90.81 Acquired absence of spleen
CPT/HCPCS: 36415; 80053; 85025; 87804; 99282-25

== ENCOUNTER 2019-04-12 18:18 | Emergency (ER) | payer OTHER ==
--- NOTE | 2019-04-12 18:27 | PDOC ---
History of Present Illness - General Chief Complaint: Urinary Problem Stated Complaint: UTI Time Seen by Provider: 04/12/19 18:27 Past History - Past Medical History Allergies/Adverse Reactions: Allergies Allergy/AdvReac Type Severity Reaction Status Date / Time No Known Allergies Allergy Verified 08/18/18 11:38 Home Medications: Ambulatory Orders Calcium Carbonate/Vitamin D3 [Oystercal-D 500 mg-400 Unit Tb] 1 each PO BID 12/07 Clotrimazole [Lotrimin AF] 12 gm TP BID 10/26/16 Lactulose [Cephulac -] 10 gm PO DAILY 10/26/16 Levothyroxine [Synthroid -] 50 mcg PO ASDIR 10/26/16 Pedi Multivit 158/Iron/Vit K1 [Cerovite Jr Tablet Chew] 1 tab PO DAILY 08/18/18 COPD: No Seizures: Yes Thyroid Disease: Yes (HYPO) - Suicide/Smoking/Psychosocial Hx Smoking History: Never smoked Have you smoked in the past 12 months: No Hx Alcohol Use: No Drug/Substance Use Hx: No *DC/Admit/Observation/Transfer - Discharge Dispostion Condition at time of disposition: Good - Referrals Referrals: Monserrat Wills [Primary Care Provider] - - Patient Instructions - Post Discharge Activity
--- NOTE | 2019-04-12 18:38 | PDOC ---
Documentation entered by Abdiel Elkins SCRIBE, acting as scribe for Joleen Kramer MD. Joleen Kramer MD: This documentation has been prepared by the Severo rm Daniel, SCRIBE, under my direction and personally reviewed by me in its entirety. I confirm that the documentation accurately reflects all work, treatment, procedures, and medical decision making performed by me. History of Present Illness - General Chief Complaint: Urinary Problem Stated Complaint: UTI Time Seen by Provider: 04/12/19 18:27 History Source: Care Provider Exam Limitations: No Limitations - History of Present Illness Initial Comments: 04/12/19 18:36 The patient is a 74 year old female with a past medical history of dwarfism, intellectual disability, HTN, HLD, seizures, hypothyroidism, thrombocytopenia, and recent UTIs here today for evaluation of urinary frequency. The patient is nonverbal and history comes from aide at bedside. The patients aide reports that the patient does not drink much water and recently has had urinary frequency and foul smelling urine. Allergies: NKA Social history: Patient lives in long-term Surgical history: splenectomy PCP: Monserrat Wills Past History - Past Medical History Allergies/Adverse Reactions: Allergies Allergy/AdvReac Type Severity Reaction Status Date / Time No Known Allergies Allergy Verified 08/18/18 11:38 Home Medications: Ambulatory Orders Calcium Carbonate/Vitamin D3 [Oystercal-D 500 mg-400 Unit Tb] 1 each PO BID 12/07 Clotrimazole [Lotrimin AF] 12 gm TP BID 10/26/16 Lactulose [Cephulac -] 10 gm PO DAILY 10/26/16 Levothyroxine [Synthroid -] 50 mcg PO ASDIR 10/26/16 Pedi Multivit 158/Iron/Vit K1 [Cerovite Jr Tablet Chew] 1 tab PO DAILY 08/18/18 Nitrofurantoin Monohyd/M-Cryst [Macrobid -] 100 mg PO BID #14 capsule 04/12/19 COPD: No Seizures: Yes Thyroid Disease: Yes (HYPO) - Suicide/Smoking/Psychosocial Hx Smoking History: Never smoked Have you smoked in the past 12 months: No Hx Alcohol Use: No Drug/Substance Use Hx: No Review of Systems - Review of Systems Able to Perform ROS?: No Comments:: 04/12/19 18:36 Limited due to patient's condition. *Physical Exam - Physical Exam Comments: GENERAL: Awake, alert, in no acute distress HEAD: No signs of trauma EYES: PERRLA, EOMI, sclera anicteric, conjunctiva clear ENT: Auricles normal inspection, hearing grossly normal, nares patent, oropharynx clear without exudates. Moist mucosa NECK: Normal ROM, supple, no lymphadenopathy, JVD, or masses LUNGS: Breath sounds equal, clear to auscultation bilaterally. No wheezes, and no crackles HEART: Regular rate and rhythm, normal S1 and S2, no murmurs, rubs or gallops ABDOMEN: Soft, nontender, normoactive bowel sounds. No guarding, no rebound. No masses EXTREMITIES: Normal range of motion, no edema. No clubbing or cyanosis. No cords, erythema, or tenderness NEUROLOGICAL: Cranial nerves II through XII grossly intact. Motor and sensation intact SKIN: Warm, dry, normal turgor, no rashes or lesions noted. Medical Decision Making - Medical Decision Making 04/12/19 18:33 Pt is drinking water and juice, will attempt to collect urine. As per aide at bedside, will avoid using straight cath, as she was traumatized in the past and will refuse it. 04/12/19 19:[address] Mazariegos at shift change. Awaiting urine sample. *DC/Admit/Observation/Transfer Diagnosis at time of Disposition: Urinary tract infection Qualifiers: Urinary tract infection type: acute cystitis Hematuria presence: without hematuria Qualified Code(s): N30.00 - Acute cystitis without hematuria - Discharge Dispostion Disposition: HOME Condition at time of disposition: Good - Prescriptions Prescriptions: Nitrofurantoin Monohyd/M-Cryst [Macrobid -] 100 mg PO BID #14 capsule - Referrals Referrals: Monserrat Wills [Primary Care Provider] - - Patient Instructions Additional Instructions: For the infection take Macrobid 1 tablet twice a day for 7 days. Return to the emergency department immediately with ANY new, persistent or worsening symptoms. Continue any medications as previously prescribed by your physician. You should follow up with your primary doctor as soon as possible regarding today's emergency department visit. . Please make sure your doctor reviews the results of your emergency evaluation. Thank you for coming to the Emergency Department today for your care. It was a pleasure to see you today. Please note that your evaluation is INCOMPLETE until you follow-up with your doctor. - Post Discharge Activity
[2019-04-12 19:17] VITALS: BP 190/90; PULSE 75; TEMP 97.2; BMI 21.0
[2019-04-12] MEDS ORDERED: PHENAZOPYRIDINE HCL 100 MG TABLET (FP) PO ONE (19:18)
--- NOTE | 2019-04-12 19:18 | PDOC ---
ED Treatment Course - ADDITIONAL ORDERS Additional order review: Laboratory Results 04/12/19 19:00 Urine Color Yellow Urine Appearance Slightly Urine pH 6.0 Urine Protein 1+ H Urine Glucose (UA) Negative Urine Ketones Negative Urine Blood 1+ H Urine Nitrite Positive H Urine Bilirubin Negative Urine Urobilinogen 0.2 Ur Leukocyte Esterase 2+ Progress Note - Progress Note Progress Note: This is an elderly female who lives in a long term. Patient was brought in by her caregivers for evaluation to rule out a urinary tract infection. Care of this patient was transferred to [facility] at [address] Duffy. Patient's urine is positive for nitrates bacteria and white cells and red cells. We'll start patient on Macrobid and Pyridium. *DC/Admit/Observation/Transfer Diagnosis at time of Disposition: Urinary tract infection Qualifiers: Urinary tract infection type: acute cystitis Hematuria presence: without hematuria Qualified Code(s): N30.00 - Acute cystitis without hematuria - Discharge Dispostion Disposition: HOME Condition at time of disposition: Good Decision to Admit order: No - Prescriptions Prescriptions: Nitrofurantoin Monohyd/M-Cryst [Macrobid -] 100 mg PO BID #14 capsule - Referrals Referrals: Monserrat Wills [Primary Care Provider] - - Patient Instructions Additional Instructions: For the infection take Macrobid 1 tablet twice a day for 7 days. Return to the emergency department immediately with ANY new, persistent or worsening symptoms. Continue any medications as previously prescribed by your physician. You should follow up with your primary doctor as soon as possible regarding today's emergency department visit. . Please make sure your doctor reviews the results of your emergency evaluation. Thank you for coming to the Emergency Department today for your care. It was a pleasure to see you today. Please note that your evaluation is INCOMPLETE until you follow-up with your doctor. - Post Discharge Activity
[2019-04-12] MEDS ORDERED: NITROFURANTOIN MACROCRYSTAL 50 MG CAPSULE (FP) PO SCH (19:30)
[2019-04-12 19:38] LABS: EPITHELIAL CELLS FEW /hpf
[2019-04-12] MEDS ORDERED: PHENAZOPYRIDINE HCL 100 MG TABLET (FP) ONE (19:38)
[2019-04-12] MEDS ORDERED: NITROFURANTOIN MACROCRYSTAL 50 MG CAPSULE (FP) ONE (19:38)
== END 2019-04-12 20:00 | disposition home or self-care (01) ==
LOC: FER 18:18
DX: N30.00 Acute cystitis without hematuria (principal); E03.9 Hypothyroidism, unspecified; R56.9 Unspecified convulsions
CPT/HCPCS: 81003; 81015; 87086; 87186; 99282-25

== ENCOUNTER 2019-05-27 07:47 | Inpatient (IN) | payer OTHER ==
--- NOTE | 2019-05-27 07:50 | PDOC ---
Attending Attestation - Resident Resident Name: Gonzalez Palacios - ED Attending Attestation I have performed the following: I have examined & evaluated the patient, The case was reviewed & discussed with the resident, I agree w/resident's findings & plan, Exceptions are as noted - HPI HPI: 05/27/19 08:07 74-year-old female history of dwarfism, intellectual disability, hypertension, lipidemia, seizures, hypothyroidism, thrombocytopenia, recent UTIs presents for evaluation of altered mental status. Per the aide, the patient was [facility], this morning the evenin team notice the p was a bit sluggish to respond to he when they went to wake her at 6:30, when the daytime aid went to check on her and she was not as responsive as she normally is so they called EMS. Upon arrival the patient was noted to have medial deviation of gaze of her left eye, so a code anderson was called. The patient was rushed to CT and the CT appears normal, bmg was 112. Upon arrival back into the ED, she was noted to be hypothemic. sepsis ordeset was placed aditionally Allergies: NKA Social history: Patient lives in skilled nursing Surgical history: splenectomy PCP: Monserrat Wills - Physicial Exam PE: 05/27/19 08:13 GENERAL: The patient is lethargic, but arousable to voice nd painful sitmulus HEAD: microcephalic, atraumatic. EYES: deviation of L eye medially ENT: Normal voice, dry mucous membranes. NECK: Normal range of motion, supple LUNGS: Breath sounds equal, clear to auscultation bilaterally. No wheezes, no rhonchi, no rales. HEART: Regular rate and rhythm, normal S1 and S2 without murmur, rub or gallop. ABDOMEN: Soft, nontender, EXTREMITIES: Normal range of motion, no edema. NEUROLOGICAL: No facial assymetry, moving all 4 extremiiess spontneously and symmetrically PSYCH: Normal mood, normal affect. SKIN: cool o touch, Dry, normal turgor, - Critical Care Time Total Critical Care Time: 45 Critical Care Statement: The care of this patient involved high complexity decision making to prevent further life threatening deterioration of the patient 's condition and/or to evaluate & treat vital organ system(s) failure or risk of failure. - Medical Decision Making 05/27/19 08:15 suspect sepsis as she is hypothermic and asplenic, consider also hypothyroid/ myxedema coma ill matilde fluids will start passive rewarming and continue to monitor 05/27/19 10:38 The patient's labs were reviewed awaiting chemistry as a hemolyzed. Patient is a mildly bradycardic suspect may be secondary to the hypothermia 05/27/19 12:42 The patient's chemistry labs were reviewed TSH also noted to be normal We will admit the patient for further management of hypothermia and rewarming
[2019-05-27] MEDS ORDERED: SODIUM CHLORIDE 1,000 ML IV SCH (08:00)
--- NOTE | 2019-05-27 08:20 | PDOC ---
History of Present Illness - General Chief Complaint: CVA/TIA Stated Complaint: POSSIBLE STROKE Time Seen by Provider: 05/27/19 08:05 - History of Present Illness Initial Comments: The pt is a 74F with a history of dwarfism, intellectual disability, HTN, HLD, s /p splenectomy, h/o seizures (most recent 15-20yrs ago), hypothyroidism, thrombocytopenia, and chronic constipation who presents for concern of stroke- like symptoms. Pt is unable to give a history, history obtained from aid/EMS. Pt was reportedly last seen well this AM prior to 0600. She was afterwards noted to be lethargic and altered. At baseline, she is reported to be verbal, ambulatory, refers to herself in the third person, and has appropriate speech. 05/27/19 11:05 tPA Exclusion Checklist 0-3hr - Time Elapsed Date last known well: 05/27/19 Time last known well: 06:00 Elaspsed time: Day(s) and 7 Hour(s) and 31 Minutes - Relative Exclusion Criteria 0-3h Stroke severity too mild: Yes - Ineligibility reason(s) Reasons No tPA given: See reason(s) noted above NIH Stroke Scale - Last Known Well Date/Time & Onset Date Last Known Well: 05/27/19 Time Last Known Well: 06:00 - Initial Evaluation Level of consciousness: Not alert, but arousable with minimal stimulation Ask patient the month and their age: Both incorrect Ask patient to open & close eyes; make fist and let go: Obeys one correctly Best gaze (horizontal eye movement): Partial gaze palsy (left medial deviation) Visual field testing: No visual field loss (no blink reflex in left eye) Facial paresis (Show teeth/raise eyebrows/close eyes tight): Normal symmetrical movement Motor Function: Left Arm: Some effort against gravity Motor Function: Right Arm: Some effort against gravity Motor Function: Left Leg: Some effort against gravity Motor Function: Right Leg: Some effort against gravity Limb Ataxia: No ataxia Sensory(Use pinprick test arms,legs,trunk,face/side to side): Normal Best language (Describe picture, name items, read sentences): Severe aphasia ( incomprehensible sounds) Dysarthria (read several words): Near unintelligible or unable to speak Extinction and Inattention: No abnormality - Total Score NIH Stroke Scale Score: 17 Past History - Past Medical History Allergies/Adverse Reactions: Allergies Allergy/AdvReac Type Severity Reaction Status Date / Time strawberry Allergy Verified 05/27/19 08:40 Home Medications: Ambulatory Orders Calcium Carbonate/Vitamin D3 [Oystercal-D 500 mg-400 Unit Tb] 1 each PO BID 12/07 Lactulose [Cephulac -] 15 gm PO DAILY 10/26/16 Levothyroxine [Synthroid -] 50 mcg PO ASDIR 10/26/16 Pedi Multivit 158/Iron/Vit K1 [Cerovite Jr Tablet Chew] 1 tab PO DAILY 08/18/18 COPD: No HTN: Yes Hypercholesterolemia: Yes Seizures: Yes Thyroid Disease: Yes (HYPO) - Psycho Social/Smoking Cessation Hx Smoking History: Never smoked Have you smoked in the past 12 months: No Hx Alcohol Use: No Drug/Substance Use Hx: No Review of Systems - Review of Systems Able to Perform ROS?: No (2/2 medical condition) *Physical Exam - Vital Signs Initial Vital Signs Temp Pulse Resp BP Pulse Ox 90 F L 50 L 16 118/60 98 05/27/19 08:10 05/27/19 08:10 05/27/19 08:10 05/27/19 08:10 05/27/19 08:10 05/27/19 11:43 - Physical Exam Comments: GENERAL: Awake, alert to verbal stimulus HEAD: No signs of trauma, normocephalic, atraumatic EYES: OS w/ left deviation, OS pupil 3mm reactive w/o deviation ENT: Hearing grossly normal, nares patent, oropharynx clear without exudates. No uvular deviation LUNGS: No distress, clear to auscultation bilaterally HEART: Regular rate and rhythm, normal S1 and S2, no murmurs appreciated, peripheral pulses normal and equal bilaterally ABDOMEN: Soft, no grimace to palpation, normoactive bowel sounds. No guarding, no rebound. EXTREMITIES: Moves all extremities independently, no obvious deformity NEUROLOGICAL: incomprehensible sounds, opens eyes to verbal stimuli, follows simple commands, sensation to light touch intact throughout, no facial droop appreciated SKIN: Warm, Dry 05/27/19 08:25 ED Treatment Course - LABORATORY CBC & Chemistry Diagram: 05/27/19 08:20 05/27/19 11:00 - ADDITIONAL ORDERS Additional order review: Laboratory Results 05/27/19 08:04 POC Glucometer 117 05/27/19 08:04 POC Glucometer 117 - RADIOLOGY Radiograph Interpretation: CT/HEAD CT (STROKE) Impression: There is no CT evidence of acute intracranial hemorrhage, intracranial pathology. No CT evidence of acute territorial ischemic changes. Unchanged CSF spaces. No interval change in comparison to CT of the brain October 25, 2016. 05/27/19 08:24 Medical Decision Making - Medical Decision Making The pt is a 74F with a history of dwarfism, intellectual disability, HTN, HLD, s /p splenectomy, h/o seizures (most recent 15-20yrs ago), hypothyroidism, thrombocytopenia, and chronic constipation who presents for evaluation for concern of stroke. Code araujo initiated 08/25 reported new onset left eye deviation and AMS. No other focal deficits noted. Pt noted to be hypothermic and with history of recurrent UTIs. Ddx: CVA, Sepsis/UTI, ACS, metabolic dysfunction ED Course Code Araujo called CT head obtained ECG Sepsis/Stroke labs sent Pt placed under warm blankets 05/27/19 08:29 No leukocytosis Anemia is chronic, no indication for transfusion at this time Lytes unremarkable LFTs unremarkable Trop I neg Lipase wnl UA w/o evidence of UTI CT w/o acute change/infarct/bleed CXR w/o obvious PNA TSH pending 05/27/19 12:17 TSH wnl Pt's symptoms most likely related to hypothermia Will give warmed IVF Pt discussed with Dr. Hernandez and ICU Will admit to Tele at this time 05/27/19 13:59 Discharge - Discharge Information Problems reviewed: Yes Clinical Impression/Diagnosis: Hypothermia Qualifiers: Encounter type: initial encounter Qualified Code(s): T68.XXXA - Hypothermia, initial encounter AMS (altered mental status) Qualifiers: Altered mental status type: unspecified Qualified Code(s): R41.82 - Altered mental status, unspecified Hypotension Qualifiers: Hypotension type: unspecified hypotension type Qualified Code(s): I95.9 - Hypotension, unspecified Condition: Guarded - Admission Yes - Follow up/Referral Referrals: Wilfrid Scott MD [Primary Care Provider] - - Patient Discharge Instructions - Post Discharge Activity
[2019-05-27 08:44] LABS: VENOUS PC02 48.2 mmHg (38-52); VENOUS PH 7.39 (7.31-7.41); VENOUS PO2 65.1 mmHg (28-48)
[2019-05-27 09:00] LABS: BASO % 0.3 % (0-2.0); EOS % 3.1 % (0-4.5); HEMATOCRIT 30.6 % (32.4-45.2); HEMOGLOBIN 10.5 GM/dL (10.7-15.3); LYMPH % 22.6 % (8-40); MCH 35.8 pg (25.7-33.7); MCHC 34.4 g/dl (32.0-36.0); MEAN CELL VOLUME 104.1 fl (80-96); MONO % 11.8 % (3.8-10.2); NEUT % 62.2 % (42.8-82.8); PLATELET COUNT 238 K/MM3 (134-434); RBC 2.94 M/mm3 (3.60-5.2); RDW 15.1 % (11.6-15.6); WHITE BLOOD COUNT 7.2 K/mm3 (4.0-10.0)
[2019-05-27 09:07] LABS: INR 1.01 (0.83-1.09); PROTHROMBIN TIME (PATIENT) 11.9 SEC (9.7-13.0)
[2019-05-27 09:10] LABS: ACTIVATED PTT 32.7 SECONDS (25.2-36.5)
[2019-05-27 09:17] LABS: URINE APPEARANCE CLEAR; URINE BILIRUBIN NEGATIVE (NEGATIVE); URINE COLOR YELLOW; URINE GLUCOSE (UA) NEGATIVE (NEGATIVE); URINE KETONE NEGATIVE (NEGATIVE); URINE LEUK ESTERASE NEGATIVE (NEGATIVE); URINE NITRITE NEGATIVE (NEGATIVE); URINE PROTEIN NEGATIVE (NEGATIVE); URINE UROBILINOGEN 0.2 mg/dL (0.2-1.0)
--- NOTE | 2019-05-27 09:59 | EKG ---
Test Reason : Blood Pressure : / mmHG Vent. Rate : 056 BPM Atrial Rate : 056 BPM P-R Int : 154 ms QRS Dur : 114 ms QT Int : 464 ms P-R-T Axes : 062 066 039 degrees QTc Int : 447 ms SINUS BRADYCARDIA EARLY REPOLARIZATION WHEN COMPARED WITH ECG OF 26-OCT-2016 02:11, ST VARIATIONS Confirmed by LAKISHA NESBITT MD ([id number]) on 05/27/2019 9:58:49 AM Referred By: Confirmed By:LAKISHA NESBITT MD
[2019-05-27 11:49] LABS: ALBUMIN 2.9 g/dl (3.4-5.0); BILIRUBIN,TOTAL 0.4 mg/dL (0.2-1); BLOOD UREA NITROGEN 18.2 mg/dL (7-18); CALCIUM 10.2 mg/dL (8.5-10.1); CREATININE 0.8 mg/dL (0.55-1.3); POTASSIUM 3.9 mmol/L (3.5-5.1)
[2019-05-27] MEDS ORDERED: SODIUM CHLORIDE 500 ML IV STA ×2 (12:13→14:47)
--- NOTE | 2019-05-27 14:25 | CONSULT ---
Consultation: REQUESTING PROVIDER: CONSULT REQUEST: ICU HISTORY OF PRESENT ILLNESS: Kandice Ta is a 74F with a history of dwarfism, intellectual disability, HTN , HLD, s/p splenectomy, seizure, hypothyroidism, thrombocytopenia, and chronic constipation presenting for lethargy and altered mental status. Pt was reportedly last seen well this AM prior to 0600. Per nurse aid, pt is verbal, ambulatory, refers to herself in the third person, and has appropriate speech. Denies fever, cough, change in appetite. In the ED: - Temp 90'F - CTH did not show acute blood/infarct - TSH wnl - WBC wnl - Hgb 10 - no focal consolidation on CXR Pt more responsive on re-evaluation by ICU team vs ED admission per aid. Opens eyes to command. REVIEW OF SYSTEMS: Pt non verbal. PHYSICAL EXAMINATION Vital Signs - 24 hr 05/27/19 05/27/19 05/27/19 08:10 08:36 08:37 Temperature 90 F L 90 F L Pulse Rate 50 L Pulse Rate [ Apical] Respiratory 16 Rate Blood Pressure 118/60 Blood Pressure [Right Arm] O2 Sat by Pulse 98 99 Oximetry (%) 05/27/19 05/27/19 05/27/19 10:20 11:32 12:59 Temperature 90.4 F L Pulse Rate Pulse Rate [ 54 L Apical] Respiratory 17 Rate Blood Pressure Blood Pressure 99/67 [Right Arm] O2 Sat by Pulse 99 97 Oximetry (%) 05/27/19 13:33 Temperature Pulse Rate Pulse Rate [ 53 L Apical] Respiratory 18 Rate Blood Pressure Blood Pressure 86/53 L [Right Arm] O2 Sat by Pulse 96 Oximetry (%) GENERAL: Eyes closes, opens eyes to command, small stature HEAD: Normal with no signs of trauma. Dry mucous membranes. LUNGS: Bradypnea. Breath sounds equal, clear to auscultation bilaterally. No wheezes, and no crackles. No accessory muscle use. HEART: Regular rate and rhythm, normal S1 and S2 without murmur, rub or gallop. ABDOMEN: Soft, nontender, not distended, normoactive bowel sounds, no guarding, no rebound, no masses. No hepatomegaly or splenomegaly. LOWER EXTREMITIES: Cool. No peripheral edema. Feet internally rotated kathie. NEUROLOGICAL: Pt sleeping. Opens eyes to verbal stimulus. No speech. Laboratory Results - last 24 hr 05/27/19 05/27/19 05/27/19 08:04 08:20 08:20 WBC RBC Hgb Hct MCV MCH MCHC RDW Plt Count MPV Absolute Neuts (auto) Neutrophils % Lymphocytes % Monocytes % Eosinophils % Basophils % Nucleated RBC % PT with INR 11.90 INR 1.01 PTT (Actin FS) 32.7 VBG pH POC VBG pCO2 POC VBG pO2 VBG HCO3 VBG O2 Sat (Luís) VBG Base Excess Sodium Potassium Chloride Carbon Dioxide Anion Gap BUN Creatinine Est GFR (CKD-EPI)AfAm Est GFR (CKD-EPI)NonAf POC Glucometer 117 Random Glucose Lactic Acid Calcium Total Bilirubin AST ALT Alkaline Phosphatase Creatine Kinase 426 H Creatine Kinase Index 1.5 CK-MB (CK-2) 6.7 H Troponin I < 0.02 Total Protein Albumin Triglycerides Cholesterol Total LDL Cholesterol HDL Cholesterol Lipase TSH Urine Color Urine Appearance Urine pH Ur Specific [place] Urine Protein Urine Glucose (UA) Urine Ketones Urine Blood Urine Nitrite Urine Bilirubin Urine Urobilinogen Ur Leukocyte Esterase Blood Type Antibody Screen 05/27/19 05/27/19 05/27/19 08:20 08:20 08:20 WBC 7.2 RBC 2.94 L Hgb 10.5 L Hct 30.6 L D MCV 104.1 H MCH 35.8 H MCHC 34.4 RDW 15.1 Plt Count 238 D MPV 11.0 Absolute Neuts (auto) 4.5 Neutrophils % 62.2 D Lymphocytes % 22.6 D Monocytes % 11.8 H Eosinophils % 3.1 Basophils % 0.3 Nucleated RBC % 0 PT with INR INR PTT (Actin FS) VBG pH POC VBG pCO2 POC VBG pO2 VBG HCO3 VBG O2 Sat (Luís) VBG Base Excess Sodium Cancelled Potassium Cancelled Chloride Cancelled Carbon Dioxide Cancelled Anion Gap Cancelled BUN Cancelled Creatinine Cancelled Est GFR (CKD-EPI)AfAm Cancelled Est GFR (CKD-EPI)NonAf Cancelled POC Glucometer Random Glucose Cancelled Lactic Acid Calcium Cancelled Total Bilirubin Cancelled AST Cancelled ALT Cancelled Alkaline Phosphatase Cancelled Creatine Kinase Creatine Kinase Index CK-MB (CK-2) Troponin I Total Protein Cancelled Albumin Cancelled Triglycerides Cancelled Cholesterol Cancelled Total LDL Cholesterol Cancelled HDL Cholesterol Cancelled Lipase TSH Cancelled Urine Color Urine Appearance Urine pH Ur Specific [place] Urine Protein Urine Glucose (UA) Urine Ketones Urine Blood Urine Nitrite Urine Bilirubin Urine Urobilinogen Ur Leukocyte Esterase Blood Type Cancelled Antibody Screen Cancelled 05/27/19 05/27/19 05/27/19 08:20 08:20 08:44 WBC RBC Hgb Hct MCV MCH MCHC RDW Plt Count MPV Absolute Neuts (auto) Neutrophils % Lymphocytes % Monocytes % Eosinophils % Basophils % Nucleated RBC % PT with INR INR PTT (Actin FS) VBG pH 7.39 POC VBG pCO2 48.2 POC VBG pO2 65.1 H VBG HCO3 28.2 VBG O2 Sat (Luís) 91.8 H VBG Base Excess 3.1 H Sodium Potassium Chloride Carbon Dioxide Anion Gap BUN Creatinine Est GFR (CKD-EPI)AfAm Est GFR (CKD-EPI)NonAf POC Glucometer Random Glucose Lactic Acid 1.0 Calcium Total Bilirubin AST ALT Alkaline Phosphatase Creatine Kinase Creatine Kinase Index CK-MB (CK-2) Troponin I Total Protein Albumin Triglycerides Cholesterol Total LDL Cholesterol HDL Cholesterol Lipase TSH Urine Color Yellow Urine Appearance Clear Urine pH 6.0 Ur Specific [place] 1.016 Urine Protein Negative Urine Glucose (UA) Negative Urine Ketones Negative Urine Blood Negative Urine Nitrite Negative Urine Bilirubin Negative Urine Urobilinogen 0.2 Ur Leukocyte Esterase Negative Blood Type Antibody Screen 05/27/19 11:00 WBC RBC Hgb Hct MCV MCH MCHC RDW Plt Count MPV Absolute Neuts (auto) Neutrophils % Lymphocytes % Monocytes % Eosinophils % Basophils % Nucleated RBC % PT with INR INR PTT (Actin FS) VBG pH POC VBG pCO2 POC VBG pO2 VBG HCO3 VBG O2 Sat (Luís) VBG Base Excess Sodium 144 Potassium 3.9 Chloride 111 H Carbon Dioxide 30 Anion Gap 3 L BUN 18.2 H Creatinine 0.8 Est GFR (CKD-EPI)AfAm 85.37 Est GFR (CKD-EPI)NonAf 73.65 POC Glucometer Random Glucose 111 H Lactic Acid Calcium 10.2 H Total Bilirubin 0.4 AST 27 ALT 26 Alkaline Phosphatase 81 Creatine Kinase Creatine Kinase Index CK-MB (CK-2) Troponin I Total Protein 6.0 L Albumin 2.9 L Triglycerides 44 Cholesterol 206 H Total LDL Cholesterol 102 H HDL Cholesterol 80 H Lipase 47 L TSH 3.10 Urine Color Urine Appearance Urine pH Ur Specific [place] Urine Protein Urine Glucose (UA) Urine Ketones Urine Blood Urine Nitrite Urine Bilirubin Urine Urobilinogen Ur Leukocyte Esterase Blood Type Antibody Screen Active Medications Generic Name Dose Route Start Last Admin Trade Name Freq PRN Reason Stop Dose Admin Sodium Chloride 1,000 mls @ 42 mls/hr 05/27/19 08:00 05/27/19 08:40 Normal Saline - IV 42 mls/hr ASDIR BENNY Administration ASSESSMENT/PLAN: #acute metabolic encephalopathy #sepsis #hypothermia #anemia #hx seizure - warmed IV fuids - bear hugger - blood/urine cultures - H&H - maintain MAP > 65 - ABG - maintain O2 >90 Dispo: floor monitoring. We will continue to monitor her. Thank you for this consult Visit type - Emergency Visit Emergency Visit: Yes ED Registration Date: 05/27/19 Care time: The patient presented to the Emergency Department on the above date and was hospitalized for further evaluation of their emergent condition. - New Patient This patient is new to me today: Yes Date on this admission: 05/27/19 - Critical Care Critical Care patient: Yes Total Critical Care Time (in minutes): 35 Critical Care Statement: The care of this patient involved high complexity decision making to prevent further life threatening deterioration of the patient 's condition and/or to evaluate & treat vital organ system(s) failure or risk of failure. ATTENDING PHYSICIAN STATEMENT I saw and evaluated the patient. I reviewed the resident's note and discussed the case with the resident. I agree with the resident's findings and plan as documented. SUBJECTIVE: OBJECTIVE: ASSESSMENT AND PLAN:
--- NOTE | 2019-05-27 14:54 | PN ---
Teaching Attending Note Name of Resident: Chai Bill ATTENDING PHYSICIAN STATEMENT I saw and evaluated the patient. I reviewed the resident's note and discussed the case with the resident. I agree with the resident's findings and plan as documented. SUBJECTIVE: Patient seen and examined in the ER. 74 F, dwarfism, intellectual disability, HTN, HLD, s/p splenectomy, seizure, hypothyroidism, thrombocytopenia, and chronic constipation. Admitted via the ER due to AMS,lethargy, and hypothermia to 90. Patient is not able to provide a history. She is getting her second liter of IVF and is on a warming blanket. CXR: no acute process. Normally she is able to express her needs and is interactive. Vital Signs - 24 hr 05/27/19 05/27/19 05/27/19 08:10 08:36 08:37 Temperature 90 F L 90 F L Pulse Rate 50 L Pulse Rate [ Apical] Respiratory 16 Rate Blood Pressure 118/60 Blood Pressure [Right Arm] O2 Sat by Pulse 98 99 Oximetry (%) 05/27/19 05/27/19 05/27/19 10:20 11:32 12:59 Temperature 90.4 F L Pulse Rate Pulse Rate [ 54 L Apical] Respiratory 17 Rate Blood Pressure Blood Pressure 99/67 [Right Arm] O2 Sat by Pulse 99 97 Oximetry (%) 05/27/19 13:33 Temperature Pulse Rate Pulse Rate [ 53 L Apical] Respiratory 18 Rate Blood Pressure Blood Pressure 86/53 L [Right Arm] O2 Sat by Pulse 96 Oximetry (%) GENERAL: Eyes closes, small stature HEAD: Normal with no signs of trauma. Dry mucous membranes. LUNGS: Bradypnea. Breath sounds equal, clear to auscultation bilaterally. No wheezes, and no crackles. No accessory muscle use. HEART: Bradycardia. ABDOMEN: Soft, nontender, not distended, normoactive bowel sounds, no guarding, no rebound, no masses. No hepatomegaly or splenomegaly. LOWER EXTREMITIES: Cool. No peripheral edema. Feet internally rotated kathie. NEUROLOGICAL: sleeping. Opens eyes to tactile Laboratory Results - last 24 hr 05/27/19 05/27/19 05/27/19 08:04 08:20 08:20 WBC RBC Hgb Hct MCV MCH MCHC RDW Plt Count MPV Absolute Neuts (auto) Neutrophils % Lymphocytes % Monocytes % Eosinophils % Basophils % Nucleated RBC % PT with INR 11.90 INR 1.01 PTT (Actin FS) 32.7 VBG pH POC VBG pCO2 POC VBG pO2 VBG HCO3 VBG O2 Sat (Luís) VBG Base Excess Sodium Potassium Chloride Carbon Dioxide Anion Gap BUN Creatinine Est GFR (CKD-EPI)AfAm Est GFR (CKD-EPI)NonAf POC Glucometer 117 Random Glucose Lactic Acid Calcium Total Bilirubin AST ALT Alkaline Phosphatase Creatine Kinase 426 H Creatine Kinase Index 1.5 CK-MB (CK-2) 6.7 H Troponin I < 0.02 Total Protein Albumin Triglycerides Cholesterol Total LDL Cholesterol HDL Cholesterol Lipase TSH Urine Color Urine Appearance Urine pH Ur Specific [place] Urine Protein Urine Glucose (UA) Urine Ketones Urine Blood Urine Nitrite Urine Bilirubin Urine Urobilinogen Ur Leukocyte Esterase Blood Type Antibody Screen 05/27/19 05/27/19 05/27/19 08:20 08:20 08:20 WBC 7.2 RBC 2.94 L Hgb 10.5 L Hct 30.6 L D MCV 104.1 H MCH 35.8 H MCHC 34.4 RDW 15.1 Plt Count 238 D MPV 11.0 Absolute Neuts (auto) 4.5 Neutrophils % 62.2 D Lymphocytes % 22.6 D Monocytes % 11.8 H Eosinophils % 3.1 Basophils % 0.3 Nucleated RBC % 0 PT with INR INR PTT (Actin FS) VBG pH POC VBG pCO2 POC VBG pO2 VBG HCO3 VBG O2 Sat (Luís) VBG Base Excess Sodium Cancelled Potassium Cancelled Chloride Cancelled Carbon Dioxide Cancelled Anion Gap Cancelled BUN Cancelled Creatinine Cancelled Est GFR (CKD-EPI)AfAm Cancelled Est GFR (CKD-EPI)NonAf Cancelled POC Glucometer Random Glucose Cancelled Lactic Acid Calcium Cancelled Total Bilirubin Cancelled AST Cancelled ALT Cancelled Alkaline Phosphatase Cancelled Creatine Kinase Creatine Kinase Index CK-MB (CK-2) Troponin I Total Protein Cancelled Albumin Cancelled Triglycerides Cancelled Cholesterol Cancelled Total LDL Cholesterol Cancelled HDL Cholesterol Cancelled Lipase TSH Cancelled Urine Color Urine Appearance Urine pH Ur Specific [place] Urine Protein Urine Glucose (UA) Urine Ketones Urine Blood Urine Nitrite Urine Bilirubin Urine Urobilinogen Ur Leukocyte Esterase Blood Type Cancelled Antibody Screen Cancelled 05/27/19 05/27/19 05/27/19 08:20 08:20 08:44 WBC RBC Hgb Hct MCV MCH MCHC RDW Plt Count MPV Absolute Neuts (auto) Neutrophils % Lymphocytes % Monocytes % Eosinophils % Basophils % Nucleated RBC % PT with INR INR PTT (Actin FS) VBG pH 7.39 POC VBG pCO2 48.2 POC VBG pO2 65.1 H VBG HCO3 28.2 VBG O2 Sat (Luís) 91.8 H VBG Base Excess 3.1 H Sodium Potassium Chloride Carbon Dioxide Anion Gap BUN Creatinine Est GFR (CKD-EPI)AfAm Est GFR (CKD-EPI)NonAf POC Glucometer Random Glucose Lactic Acid 1.0 Calcium Total Bilirubin AST ALT Alkaline Phosphatase Creatine Kinase Creatine Kinase Index CK-MB (CK-2) Troponin I Total Protein Albumin Triglycerides Cholesterol Total LDL Cholesterol HDL Cholesterol Lipase TSH Urine Color Yellow Urine Appearance Clear Urine pH 6.0 Ur Specific [place] 1.016 Urine Protein Negative Urine Glucose (UA) Negative Urine Ketones Negative Urine Blood Negative Urine Nitrite Negative Urine Bilirubin Negative Urine Urobilinogen 0.2 Ur Leukocyte Esterase Negative Blood Type Antibody Screen 05/27/19 11:00 WBC RBC Hgb Hct MCV MCH MCHC RDW Plt Count MPV Absolute Neuts (auto) Neutrophils % Lymphocytes % Monocytes % Eosinophils % Basophils % Nucleated RBC % PT with INR INR PTT (Actin FS) VBG pH POC VBG pCO2 POC VBG pO2 VBG HCO3 VBG O2 Sat (Luís) VBG Base Excess Sodium 144 Potassium 3.9 Chloride 111 H Carbon Dioxide 30 Anion Gap 3 L BUN 18.2 H Creatinine 0.8 Est GFR (CKD-EPI)AfAm 85.37 Est GFR (CKD-EPI)NonAf 73.65 POC Glucometer Random Glucose 111 H Lactic Acid Calcium 10.2 H Total Bilirubin 0.4 AST 27 ALT 26 Alkaline Phosphatase 81 Creatine Kinase Creatine Kinase Index CK-MB (CK-2) Troponin I Total Protein 6.0 L Albumin 2.9 L Triglycerides 44 Cholesterol 206 H Total LDL Cholesterol 102 H HDL Cholesterol 80 H Lipase 47 L TSH 3.10 Urine Color Urine Appearance Urine pH Ur Specific [place] Urine Protein Urine Glucose (UA) Urine Ketones Urine Blood Urine Nitrite Urine Bilirubin Urine Urobilinogen Ur Leukocyte Esterase Blood Type Antibody Screen Active Medications Generic Name Dose Route Start Last Admin Trade Name Freq PRN Reason Stop Dose Admin Sodium Chloride 1,000 mls @ 42 mls/hr 05/27/19 08:00 05/27/19 08:40 Normal Saline - IV 42 mls/hr ASDIR [facility] Administration ASSESSMENT/PLAN: Acute metabolic encephalopathy R/O sepsis: source not clear Hypothermia Aanemia Seizure DO Additional IVF boluses ABX coverage Strict I & O VTE prophylaxis Warm blanket Aspiration precautions Cardiac Telemetry monitoring BP checks Q4 for 24 hours Please call for changes in status Will follow Dr Luz
[2019-05-27 18:19] VITALS: BMI 18.6
--- NOTE | 2019-05-27 21:33 | HP ---
Admitting History and Physical - Admission History of Present Illness: Pt is a 74 y/o female W/ PMH significant for dwarfism, intellectual disability, hypertension, hyperlipidemia, seizures, hypothyroidism, thrombocytopenia, and recent UTIs presents for evaluation of altered mental status. Per the aide, the patient was at her usual state of health yesterday and this morning the evening team notice the pt was a bit sluggish to respond to when they went to wake her at 6:30. When the daytime aid went to check on her and she was not as responsive as she normally is so they called EMS. Upon arrival the patient was noted to have medial deviation of gaze of her left eye, so a code anderson was called. The patient was had a ct scan head wc did not show danielle cute pathology. Upon arrival back into the ED, she was noted to be hypothemic and hypotensive. Warming blanket was applied. - Past Medical History Cardiovascular: Yes: HTN, Hyperlipdemia Heme/Onc: Yes: Thrombocytopenia Psych: Yes: Other (MR/Dwarfism) Endocrine: Yes: Hypothyroidism - Past Surgical History Past Surgical History: Yes: None - Smoking History Smoking history: Never smoked Have you smoked in the past 12 months: No - Alcohol/Substance Use Hx Alcohol Use: No Home Medications - Allergies Allergies/Adverse Reactions: Allergies Allergy/AdvReac Type Severity Reaction Status Date / Time strawberry Allergy Verified 05/27/19 08:40 - Home Medications Home Medications: Ambulatory Orders Calcium Carbonate/Vitamin D3 [Oystercal-D 500 mg-400 Unit Tb] 1 each PO BID 12/07 Lactulose [Cephulac -] 15 gm PO DAILY 10/26/16 Levothyroxine [Synthroid -] 50 mcg PO ASDIR 10/26/16 Pedi Multivit 158/Iron/Vit K1 [Cerovite Jr Tablet Chew] 1 tab PO DAILY 08/18/18 Family Medical History Family History: Unable to Obtain Review of Systems Unable to obtain ROS, reason: Learning disability Physical Examination Vital Signs: Vital Signs Temperature 98.3 F 05/27/19 20:10 Pulse Rate 80 05/27/19 20:10 Respiratory Rate 20 05/27/19 20:10 Blood Pressure 91/53 L 05/27/19 20:10 O2 Sat by Pulse Oximetry (%) 93 L 05/27/19 18:23 Eyes: Yes: WNL HENT: Yes: WNL Neck: Yes: WNL, Supple Cardiovascular: Yes: WNL, Regular Rate and Rhythm Respiratory: Yes: WNL, Regular, CTA Bilaterally Gastrointestinal: Yes: WNL, Normal Bowel Sounds, Soft Edema: No Labs: CBC, BMP 05/27/19 08:20 05/27/19 11:00
[2019-05-27] MEDS ORDERED: DEXTROSE 5%-0.45% SALINE 1,000 ML IV SCH (23:45)
[2019-05-28] MEDS ORDERED: PIPERACILLIN/TAZOBACTAM 3.375 GM VIAL IVPB ONE ×2 (00:16→10:15)
[2019-05-28] MEDS ORDERED: DEXTROSE 5%-WATER - 50 ML IVPB ONE ×3 (00:16→15:13)
[2019-05-28] MEDS: PIPERACILLIN/TAZOB 3.375 GM 3.375 GM in DEXTROSE 5%-WATER - 50 ML IVPB SCH ×2 (00:24→10:19)
[2019-05-28] MEDS: SODIUM CHLORIDE 0.45% 1,000 ML IV SCH ×2 (03:00→15:33)
[2019-05-28 06:34] LABS: BASO % 0.5 % (0-2.0); EOS % 5.7 % (0-4.5); HEMATOCRIT 28.1 % (32.4-45.2); HEMOGLOBIN 9.7 GM/dL (10.7-15.3); LYMPH % 37.2 % (8-40); MCH 36.5 pg (25.7-33.7); MCHC 34.4 g/dl (32.0-36.0); MEAN PLT VOLUME 9.8 fl (7.5-11.1); MONO % 11.3 % (3.8-10.2); NEUT % 45.3 % (42.8-82.8); PLATELET COUNT 146 K/MM3 (134-434); RBC 2.65 M/mm3 (3.60-5.2); RDW 15.3 % (11.6-15.6); WHITE BLOOD COUNT 4.7 K/mm3 (4.0-10.0)
[2019-05-28 07:02] LABS: ALBUMIN 2.4 g/dl (3.4-5.0); BILIRUBIN,TOTAL 0.4 mg/dL (0.2-1); BLOOD UREA NITROGEN 13.6 mg/dL (7-18); CALCIUM 8.1 mg/dL (8.5-10.1); POTASSIUM 3.7 mmol/L (3.5-5.1); TOT PROT 5.1 g/dl (6.4-8.2)
[2019-05-28 09:30] LABS: ANISOCYTOSIS 1+; MACROCYTOSIS 1+; PLATELET ESTIMATE DECREASED; TARGET CELLS 1+
[2019-05-28] MEDS: HEPARIN NA (PORCINE) 5,000 UNITS/ML 1ML VIAL SQ SCH ×2 (10:19→22:32)
--- NOTE | 2019-05-28 10:56 | CONSULT ---
Admitting History and Physical - Primary Care Physician PCP: Joleen Hernandez - Admission History of Present Illness: Per EMR- 74 y/o female W/ PMH significant for dwarfism, intellectual disability , hypertension, hyperlipidemia, seizures, hypothyroidism, thrombocytopenia, and recent UTIs presents for evaluation of altered mental status. Per the aide, the patient was at her usual state of health yesterday and this morning the evening team notice the pt was a bit sluggish to respond to when they went to wake her at 6:30. When the daytime aid went to check on her and she was not as responsive as she normally is so they called EMS. Upon arrival the patient was noted to have medial deviation of gaze of her left eye, so a code anderson was called. Selected Entries 05/27/19 05/27/19 05/27/19 08:10 08:36 12:59 Breakfast Temperature 90 F L 90 F L 90.4 F L 05/27/19 05/27/19 05/27/19 14:35 17:23 18:13 Breakfast Temperature 93.5 F L 97.1 F L 97.1 F L 05/27/19 05/27/19 05/28/19 20:10 22:00 01:47 Breakfast Temperature 98.3 F 100 F H 97.5 F L 05/28/19 05/28/19 05/28/19 03:24 06:00 10:30 Breakfast 50% Temperature 97.5 F L 96.5 F L Laboratory Tests 05/28/19 05:40 WBC 4.7 Pt on reg cut up diet and thin liquids at home, self feeds with no difficulty per PSYCHIATRIC MENTAL HEALTH NURSE. Pt noted to cough this am on solids. Pt's left eye was turned all the way in, not visible, but now back to baseline- assymetry to right. New onset dysphagia This is my first consult with this pt. 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 No: Ascites, Cancer, Crohn's Disease, Diverticulitis, Diverticulosis, Esophageal Varices, Gastritis, GERD, GI Bleed, Hemorrhoids, Hiatal Hernia, Inflamatory Bowel Disease, Irritable Bowel Disease, Pancreatitis, Peptic Ulcer Disease, Ulcerative Colitis, Other Heme/Onc: Yes: Thrombocytopenia Psych: Yes: Other (MR/Dwarfism) Endocrine: Yes: Hypothyroidism - Past Surgical History Past Surgical History: Yes: None - Smoking History Smoking history: Never smoked Have you smoked in the past 12 months: No - Alcohol/Substance Use Hx Alcohol Use: No History - Admission Reason For Visit: HYPOTHERMIA,AMS,HYPOTENSION - Diagnostics X-ray: Report Reviewed CT Scan: Report Reviewed - General Mental Status: Awake and Alert, Able to Follow Commands Attention: Distractible, Mild Impairment Ability to Follow Directions: Fair Head/Neck Control: Good - Hearing Hearing: Normal Speech Evaluation - Communication Primary Language: [place] Communication: Yes: Simple Responses - Speech Production Able to Make Needs Known: Yes: Mildly Impaired (baseline) Intelligibility: Yes: Mildly Impaired - Speech Characteristics Voice Loudness: Mildly Soft/Quiet Voice Pitch: Yes: Mildly High Voice Phonatory-based Quality: Yes: Strident, Dysphonia Speech Pattern: Impaired Speech Clarity: < 75% Nasal Resonance: Normal Articulation: Yes: Imprecise Rate of Speech: Too Fast - Language/Auditory Comprehension Follows: Yes: 1 Stage Simple Commands - Swallow Evaluation/Bedside Assessment Current Nutritional Intake: Soft, Thin Liquids Dentition: Yes: Missing Teeth Facial Symmetry at Rest: Symmetrical Facial Symmetry on Retraction: Symmetrical Lingual Movement: Symmetric Lingual Speed of Movement: Reduced Lingual Movement Strgth Against Opposition: Reduced Laryngeal Elevation: Impaired Laryngeal Movement: Labored,delay initiation Rate of Intake: Impulsive Labial Seal: WFL Chewing: Impaired Oral Prep Time: Increased A-P Transit: Impaired Timing of Swallow: Delayed Coughing/Throat Clear: Yes (delayed, harsh) Recommendations - Speech Evaluation, Impression/Plan Impression: Pt's left eye was turned all the way in, not visible, but now back to baseline-assymetry to right. New onset dysphagia- cough/harsh with thin liquid trials. Delayed swallow. Aspiration suspected. - Dysphagia Impressions/Plan Swallowing Skills: Impaired Dysphagia Impressions: Moderate Impairment, Suspect Aspiration *Silent aspiration: cannot be R/O at bedside Dysphagia Treatment Plan: Small Bites, Chin Tuck/Down, Clear Pocket Food, Trial Feedings, Facilitative Feeding, Safe Rate, 1/2 tsp. at a time, Elevate HOB during feed, Other (Feed pt, slowly, 1/2 tsp) Recommendations: Neuro Consult (r/o Cranial nerve/brainstem involvement-Eye movement/Dysphagia. Consider Neuro/MRI?), Modified Barium Swallow (Fluoro down , When repaired) - Recommendations Diet Consistency: Dysphagia Pureed Medication Administration: Crushed with applesauce Liquids: Barclay Thick (on tsp) Supplement: Magic Cup
--- NOTE | 2019-05-28 11:08 | ECHO ---
Version: 1 Name: PATTY YUSUF Exam: Adult Echocardiogram Study Date: 05/28/2019, 10:20 AM Age: 74 Years MMode/2D Measurements & Calculations IVSd: 0.79 cm LVIDs: 1.97 cm LVIDd: 2.9 cm LVPWd: 0.76 cm LAV (MOD-bp): 15.8 ml LVOT diam: 1.66 cm Ao root diam: 2.6 cm LA dimension: 2.32 cm Doppler Measurements & Calculations MV E max jarrod: 85.4 cm/sec Med E/e': 11.2 MV A max jarrod: 109.1 cm/sec Med Peak E' Jarrod: 7.6 cm/sec MV E/A: 0.78 Lat E/e': 7.5 Lat Peak E' Jarrod: 11.3 cm/sec MR max P.3 mmHg Ao max P.8 mmHg Ao V2 max: 120.8 cm/sec TR max jarrod: 190.9 cm/sec TR max P.8 mmHg Left Ventricle The left ventricular size, thickness and function are normal. Ejection Fraction = 70%. The transmitr al spectral Doppler flow pattern is suggestive of impaired LV relaxation. Right Ventricle The right ventricle is normal in size and function. Atria Normal left and right atrial size and function. Mitral Valve There is mild mitral annular calcification. There is mild mitral regurgitation. Tricuspid Valve The tricuspid valve is normal in structure and function. There is mild tricuspid regurgitation. Aortic Valve There is mild aortic valve thickening. Pulmonic Valve The pulmonic valve is not well seen, but is grossly normal. Mild pulmonic valvular regurgitation. Great Vessels The aortic root is normal size. Normal aortic arch, descending and ascending aorta. Pericardium/Pleura There is no pericardial effusion. Summary Statements The left ventricular size, thickness and function are normal Ejection Fraction = 70%. The transmitral spectral Doppler flow pattern is suggestive of impaired LV relaxation. The right ventricle is normal in size and function. Normal left and right atrial size and function. There is mild mitral annular calcification. There is mild mitral regurgitation. The tricuspid valve is normal in structure and function. There is mild tricuspid regurgitation. There is mild aortic valve thickening. The pulmonic valve is not well seen, but is grossly normal. Mild pulmonic valvular regurgitation. The aortic root is normal size. Normal aortic arch, descending and ascending aorta There is no pericardial effusion. Boris Velazco 05/28/2019, 11:07 AM Ordering Physician: Joleen Hernandez Performed By: Leigha Lindsey
--- NOTE | 2019-05-28 13:11 | CON.CARD ---
Consult Consult Specialty:: cardiology Reason for Consultation:: change in mental status - History of Present Illness Chief Complaint: Pt smiling; does not respond verbally History of Present Illness: 74-year-old white female history of dwarfism, intellectual disability, hypertension, lipidemia, seizures, hypothyroidism, thrombocytopenia, recent UTIs presents for evaluation of altered mental status. Per the aide, the patient was in her usual state health yesterday; this morning, the evening team noticed she was a bit sluggish to respond to when they went to wake her at 6: 30. When the daytime aide went to check on her and she was not as responsive as she normally is, they called EMS. Upon arrival the patient was noted to have medial deviation of gaze of her left eye; shubham anderson was called. The patient was rushed to CT; it appeared normal. Bmg was 112. Upon arrival back to the ED , she was noted to be hypothermic; sepsis order was placed. 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 No: Ascites, Cancer, Crohn's Disease, Diverticulitis, Diverticulosis, Esophageal Varices, Gastritis, GERD, GI Bleed, Hemorrhoids, Hiatal Hernia, Inflamatory Bowel Disease, Irritable Bowel Disease, Pancreatitis, Peptic Ulcer Disease, Ulcerative Colitis, Other Reproductive: Yes: Postmenopausal ...: No Heme/Onc: No: Anemia Psych: Yes: Other (Mental retardation/Dwarfism) Musculoskeletal: Yes: Other (small stature) Endocrine: Yes: Hypothyroidism - Past Surgical History Past Surgical History: Yes: None - Alcohol/Substance Use Hx Alcohol Use: No - Smoking History Smoking history: Never smoked Have you smoked in the past 12 months: No Home Medications - Allergies Allergies/Adverse Reactions: Allergies Allergy/AdvReac Type Severity Reaction Status Date / Time strawberry Allergy Verified 05/27/19 08:40 - Home Medications Home Medications: Ambulatory Orders Calcium Carbonate/Vitamin D3 [Oystercal-D 500 mg-400 Unit Tb] 1 each PO BID 12/07 Lactulose [Cephulac -] 15 gm PO DAILY 10/26/16 Levothyroxine [Synthroid -] 50 mcg PO ASDIR 10/26/16 Pedi Multivit 158/Iron/Vit K1 [Cerovite Jr Tablet Chew] 1 tab PO DAILY 08/18/18 Thiamine HCl [B-1] 100 mg PO DAILY #30 tablet 05/31/19 Family Medical History Family History: Unable to Obtain Review of Systems Unable to obtain ROS, reason: mental retardation Findings/Remarks: pt's caregiver is present, and contributes information - Review of Systems Constitutional: reports: Weakness Eyes: reports: No Symptoms HENT: reports: No Symptoms Cardiovascular: denies: Chest Pain Respiratory: denies: Exercise Intolerance Neurological: reports: Other Psychiatric: reports: Other - Risk Factors Known Risk Factors: Yes: Age, Other (dwarfism) Vital Signs: Vital Signs Temperature 96.5 F L 05/28/19 06:00 Pulse Rate 62 05/28/19 06:00 Respiratory Rate 18 05/28/19 06:00 Blood Pressure 104/59 L 05/28/19 06:00 O2 Sat by Pulse Oximetry (%) 94 L 05/27/19 21:00 Constitutional: Yes: Calm Eyes: Yes: WNL HENT: Yes: WNL Neck: Yes: WNL Respiratory: Yes: Regular Gastrointestinal: Yes: Soft Renal/: No: Anuria Cardiovascular: Yes: Regular Rate and Rhythm JVD: No Carotid Bruit: No PMI: Non-Displaced Heart Sounds: Yes: S1, S2 Murmur: Yes: Systolic Murmur, Grade 1 Extremities: Yes: Shortened Edema: No Peripheral Pulses WNL: Yes Integumentary: Yes: WNL Neurological: Yes: Alert Psychiatric: Yes: Alert, Other - Other Data Labs, Other Data: CBC, BMP 05/28/19 05:40 05/28/19 05:40 INR, PTT INR 1.01 (0.83-1.09) 05/27/19 08:20 Troponin, BNP 05/28/19 00:45 Troponin I < 0.02 Troponin, BNP 05/28/19 00:45 Troponin I < 0.02 Abnormal Lab Results 05/28/19 05/28/19 05:40 05:40 RBC 2.65 L Hgb 9.7 L Hct 28.1 L MCV 106.0 H MCH 36.5 H Monocytes % 11.3 H Eosinophils % 5.7 H D Chloride 115 H Anion Gap 4 L Calcium 8.1 L Total Protein 5.1 L Albumin 2.4 L Echo: Pending Imaging - Results Chest X-ray: Image Reviewed Cat Scan: Image Reviewed (head: no acute pathology) EKG: Image Reviewed Problem List - Problems (1) Anemia Code(s): D64.9 - ANEMIA, UNSPECIFIED (2) AMS (altered mental status) Assessment/Plan: ? altered thermoregulatory response-->marked hypothermia. Temperature now more normal; pt's aide says that pt is markedly improved compared to admission, but is not yet her usual active self. CXR, CT head results noted. TNI < 0.02 x 2. TSH and glucose WNL. EKG: sinus bradycardia; early repolarization. F/u ECHO for LVEF, valve status. Sepsis workup. 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 R/o sepsis; on empiric antibiotics. F/u thyroid function tests (on Synthroid). Code(s): T68.XXXA - HYPOTHERMIA, INITIAL ENCOUNTER Qualifiers: Encounter type: initial encounter Qualified Code(s): T68.XXXA - Hypothermia , initial encounter (4) Dwarfism Code(s): E34.3 - SHORT STATURE DUE TO ENDOCRINE DISORDER (5) Hypertension Code(s): I10 - ESSENTIAL (PRIMARY) HYPERTENSION (6) Hypothyroid Assessment/Plan: On Synthroid Code(s): E03.9 - HYPOTHYROIDISM, UNSPECIFIED (7) Hypoalbuminemia Code(s): E88.09 - OTH DISORDERS OF PLASMA-PROTEIN METABOLISM, NEC (8) Diastolic CHF Code(s): I50.30 - UNSPECIFIED DIASTOLIC (CONGESTIVE) HEART FAILURE
--- NOTE | 2019-05-28 13:45 | CON.ID ---
Consult Consult Specialty:: infectious diseases Referred by:: Reason for Consultation:: sepsis,hypothermia - History of Present Illness Chief Complaint: altered behaviour History of Present Illness: history obtained from the aid 74-year-old female history of dwarfism, intellectual disability, hypertension, lipidemia, seizures, hypothyroidism, thrombocytopenia, recent UTIs presents for evaluation of altered mental status. Per the aide, the patient was in her usual state health yesterday; this morning, the evening team noticed she was a bit sluggish to respond to when they went to wake her at 6:30. When the daytime aide went to check on her and she was not as responsive as she normally is, they called EMS. Upon arrival the patient was noted to have medial deviation of gaze of her left eye; shubham anderson was called. The patient was rushed to CT; it appeared normal. , she was noted to be hypothermic; sepsis order was placed. 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 No: Ascites, Cancer, Crohn's Disease, Diverticulitis, Diverticulosis, Esophageal Varices, Gastritis, GERD, GI Bleed, Hemorrhoids, Hiatal Hernia, Inflamatory Bowel Disease, Irritable Bowel Disease, Pancreatitis, Peptic Ulcer Disease, Ulcerative Colitis, Other Psych: Yes: Other (MR/Dwarfism) Endocrine: Yes: Hypothyroidism - Past Surgical History Past Surgical History: Yes: None - Alcohol/Substance Use Hx Alcohol Use: No - Smoking History Smoking history: Never smoked Have you smoked in the past 12 months: No Home Medications - Allergies Allergies/Adverse Reactions: Allergies Allergy/AdvReac Type Severity Reaction Status Date / Time strawberry Allergy Verified 05/27/19 08:40 - Home Medications Home Medications: Ambulatory Orders Calcium Carbonate/Vitamin D3 [Oystercal-D 500 mg-400 Unit Tb] 1 each PO BID 12/07 Lactulose [Cephulac -] 15 gm PO DAILY 10/26/16 Levothyroxine [Synthroid -] 50 mcg PO ASDIR 10/26/16 Pedi Multivit 158/Iron/Vit K1 [Cerovite Jr Tablet Chew] 1 tab PO DAILY 08/18/18 Review of Systems - Review of Systems Constitutional: reports: Other (hypothermia) Eyes: reports: No Symptoms HENT: reports: No Symptoms Neck: reports: No Symptoms Cardiovascular: reports: No Symptoms Respiratory: reports: No Symptoms Gastrointestinal: reports: No Symptoms Genitourinary: reports: No Symptoms Breasts: reports: No Symptoms Reported Musculoskeletal: reports: No Symptoms Integumentary: reports: No Symptoms Neurological: reports: Confusion, Other Hematology/Lymphatic: reports: No Symptoms Psychiatric: reports: No Symptoms Physical Exam Vital Signs: Vital Signs Temperature 96.5 F L 05/28/19 06:00 Pulse Rate 62 05/28/19 06:00 Respiratory Rate 18 05/28/19 06:00 Blood Pressure 104/59 L 05/28/19 06:00 O2 Sat by Pulse Oximetry (%) 94 L 05/27/19 21:00 Constitutional: Yes: Well Nourished, No Distress, Calm Eyes: Yes: Conjunctiva Clear Neck: Yes: Supple, Trachea Midline Cardiovascular: Yes: Regular Rate and Rhythm Respiratory: Yes: Regular, CTA Bilaterally Gastrointestinal: Yes: Normal Bowel Sounds, Soft Musculoskeletal: Yes: WNL Extremities: Yes: WNL Neurological: Yes: Alert, Oriented Psychiatric: Yes: Alert, Oriented Labs: CBC, BMP 05/28/19 05:40 05/28/19 05:40 Imaging - Results Chest X-ray: Report Reviewed, Image Reviewed Cat Scan: Report Reviewed, Image Reviewed Assessment/Plan Assessment/Plan Problems (1) Anemia Code(s): D64.9 - ANEMIA, UNSPECIFIED (2) AMS (altered mental status) Code(s): R41.82 - ALTERED MENTAL STATUS, UNSPECIFIED Qualifiers: Altered mental status type: unspecified Qualified Code(s): R41.82 - Altered mental status, unspecified (3) Hypothermia Code(s): T68.XXXA - HYPOTHERMIA, INITIAL ENCOUNTER Qualifiers: Encounter type: initial encounter Qualified Code(s): T68.XXXA - Hypothermia , initial encounter (4) Dwarfism Code(s): E34.3 - SHORT STATURE DUE TO ENDOCRINE DISORDER (5) Hypertension Code(s): I10 - ESSENTIAL (PRIMARY) HYPERTENSION (6) Hypothyroid Code(s): E03.9 - HYPOTHYROIDISM, UNSPECIFIED (7) Hypoalbuminemia Code(s): E88.09 - OTH DISORDERS OF PLASMA-PROTEIN METABOLISM, NEC plan will not start on abx and watch rest as per the team
[2019-05-28] MEDS ORDERED: cefTRIAXone SODIUM 1 GM VIAL ONE (15:13)
[2019-05-28] MEDS: CEFTRIAXONE 1 GM in DEXTROSE 5%-WATER - 50 ML IVPB SCH (15:33)
--- NOTE | 2019-05-28 22:15 | PN ---
Progress Note, Physician History of Present Illness: As per aide pt is coughing - Current Medication List Current Medications: Active Medications Heparin Sodium (Porcine) (Heparin -) 5,000 unit SQ BID BENNY Last Admin: 05/28/19 10:19 Dose: 5,000 unit Sodium Chloride (1/2 Normal Saline) 1,000 mls @ 100 mls/hr IV ASDIR BENNY Last Admin: 05/28/19 15:33 Dose: 100 mls/hr Ceftriaxone Sodium 1 gm/ (Dextrose) 50 mls @ 100 mls/hr IVPB DAILY BENNY; Protocol Last Admin: 05/28/19 15:33 Dose: 100 mls/hr Levothyroxine Sodium (Synthroid -) 50 mcg PO [email or web address]@0700 [facility] - Objective Vital Signs: Vital Signs Temperature 97.4 F L 05/28/19 17:00 Pulse Rate 61 05/28/19 17:00 Respiratory Rate 20 05/28/19 17:00 Blood Pressure 111/58 L 05/28/19 17:00 O2 Sat by Pulse Oximetry (%) 96 05/28/19 09:00 Neck: Yes: WNL, Supple Cardiovascular: Yes: WNL, Regular Rate and Rhythm Respiratory: Yes: WNL, Regular, CTA Bilaterally Gastrointestinal: Yes: WNL, Normal Bowel Sounds, Soft Labs: CBC, BMP 05/28/19 05:40 05/28/19 05:40 INR, PTT INR 1.01 (0.83-1.09) 05/27/19 08:20 Problem List - Problems (1) Hypotension Assessment/Plan: Bp slightly improving However pt still receiving agressive IV hydration ?Dehydration vs sepsis Cont IV ceftriaxone Cultures remain negative Code(s): I95.9 - HYPOTENSION, UNSPECIFIED (2) Hypothermia Assessment/Plan: Temp now improved Code(s): T68.XXXA - HYPOTHERMIA, INITIAL ENCOUNTER Qualifiers: Encounter type: initial encounter Qualified Code(s): T68.XXXA - Hypothermia , initial encounter (3) Hypothyroid Code(s): E03.9 - HYPOTHYROIDISM, UNSPECIFIED (4) Dwarfism Code(s): E34.3 - SHORT STATURE DUE TO ENDOCRINE DISORDER (5) Learning disability Code(s): F81.9 - DEVELOPMENTAL DISORDER OF SCHOLASTIC SKILLS, UNSPECIFIED
[2019-05-29] MEDS: LEVOTHYROXINE NA 50 MCG TABLET (FP) PO SCH (06:24)
[2019-05-29] MEDS: SODIUM CHLORIDE 0.45% 1,000 ML IV SCH (06:26)
[2019-05-29 06:51] LABS: BASO % 0.6 % (0-2.0); EOS % 7.8 % (0-4.5); HEMATOCRIT 34.9 % (32.4-45.2); HEMOGLOBIN 11.8 GM/dL (10.7-15.3); LYMPH % 30.5 % (8-40); MCHC 33.8 g/dl (32.0-36.0); MEAN CELL VOLUME 106.5 fl (80-96); MEAN PLT VOLUME 10.4 fl (7.5-11.1); MONO % 12.2 % (3.8-10.2); NEUT % 48.9 % (42.8-82.8); PLATELET COUNT 187 K/MM3 (134-434); RBC 3.27 M/mm3 (3.60-5.2); RDW 14.9 % (11.6-15.6); WHITE BLOOD COUNT 6.5 K/mm3 (4.0-10.0)
[2019-05-29 07:17] LABS: BILIRUBIN,TOTAL 0.2 mg/dL (0.2-1); BLOOD UREA NITROGEN 16.3 mg/dL (7-18); CALCIUM 8.8 mg/dL (8.5-10.1); POTASSIUM 4.4 mmol/L (3.5-5.1); TOT PROT 6.3 g/dl (6.4-8.2)
[2019-05-29] MEDS ORDERED: cefTRIAXone SODIUM 1 GM VIAL ONE (09:11)
[2019-05-29] MEDS ORDERED: DEXTROSE 5%-WATER - 50 ML IVPB ONE (09:11)
--- NOTE | 2019-05-29 09:38 | PN ---
Progress Note, Physician History of Present Illness: 74-year-old white female history of dwarfism, intellectual disability, hypertension, lipidemia, seizures, hypothyroidism, thrombocytopenia, recent UTIs presents for evaluation of altered mental status. Per the aide, the patient was in her usual state health yesterday; this morning, the evening team noticed she was a bit sluggish to respond to when they went to wake her at 6: 30. When the daytime aide went to check on her and she was not as responsive as she normally is, they called EMS. Upon arrival the patient was noted to have medial deviation of gaze of her left eye; code justin was called. The patient was rushed to CT; it appeared normal. Bmg was 112. Upon arrival back to the ED , she was noted to be hypothermic; sepsis order was placed. - Current Medication List Current Medications: Active Medications Heparin Sodium (Porcine) (Heparin -) 5,000 unit SQ BID [facility] Last Admin: 05/28/19 22:32 Dose: 5,000 unit Sodium Chloride (1/2 Normal Saline) 1,000 mls @ 100 mls/hr IV ASDIR [facility] Last Admin: 05/29/19 06:26 Dose: 100 mls/hr Ceftriaxone Sodium 1 gm/ (Dextrose) 50 mls @ 100 mls/hr IVPB DAILY [facility]; Protocol Last Admin: 05/28/19 15:33 Dose: 100 mls/hr Levothyroxine Sodium (Synthroid -) 50 mcg PO SuMoWeThFrSa@0700 [facility] Last Admin: 05/29/19 06:24 Dose: 50 mcg - Objective Vital Signs: Vital Signs Temperature 97.4 F L 05/29/19 01:58 Pulse Rate 67 05/29/19 06:00 Respiratory Rate 20 05/29/19 08:57 Blood Pressure 143/84 05/29/19 06:00 O2 Sat by Pulse Oximetry (%) 95 05/29/19 08:57 Eyes: Yes: WNL, Conjunctiva Clear, EOM Intact HENT: Yes: WNL, Atraumatic, Normocephalic Neck: Yes: WNL, Supple, Trachea Midline Cardiovascular: Yes: WNL, Regular Rate and Rhythm Respiratory: Yes: WNL, Regular, CTA Bilaterally Gastrointestinal: Yes: WNL, Normal Bowel Sounds Genitourinary: Yes: WNL Musculoskeletal: Yes: WNL Extremities: Yes: WNL Edema: No Integumentary: Yes: WNL Neurological: Yes: Alert ...Motor Strength: WNL Psychiatric: Yes: WNL Labs: CBC, BMP 05/29/19 06:10 05/29/19 06:10 INR, PTT INR 1.01 (0.83-1.09) 05/27/19 08:20 Assessment/Plan Problems (1) Anemia Code(s): D64.9 - ANEMIA, UNSPECIFIED (2) AMS (altered mental status) Assessment/Plan: ? alterted thermoregulatory response-->marked hypothermia. Temperature now more normal; pt's aide says that pt is markedly improved compared to admission, but is not yet her usual active self. CXR, CT head results noted. TNI < 0.02 x 2. TSH and glucose WNL. EKG: sinus bradycardia; early repolarization. F/u ECHO for LVEF, valve status. Sepsis workup. 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 R/o sepsis; on empiric antibiotics. F/u thyroid function tests (on Synthroid). Code(s): T68.XXXA - HYPOTHERMIA, INITIAL ENCOUNTER Qualifiers: Encounter type: initial encounter Qualified Code(s): T68.XXXA - Hypothermia , initial encounter (4) Dwarfism Code(s): E34.3 - SHORT STATURE DUE TO ENDOCRINE DISORDER (5) Hypertension Code(s): I10 - ESSENTIAL (PRIMARY) HYPERTENSION (6) Hypothyroid Code(s): E03.9 - HYPOTHYROIDISM, UNSPECIFIED (7) Hypoalbuminemia Code(s): E88.09 - OTH DISORDERS OF PLASMA-PROTEIN METABOLISM, NEC
[2019-05-29] MEDS: HEPARIN NA (PORCINE) 5,000 UNITS/ML 1ML VIAL SQ SCH ×2 (10:02→21:53)
[2019-05-29] MEDS: CEFTRIAXONE 1 GM in DEXTROSE 5%-WATER - 50 ML IVPB SCH (10:02)
--- NOTE | 2019-05-29 11:22 | PN ---
Progress Note, BUILD TECHNICIAN - Note Progress Note: Pt tolerating puree, coughing on Ensure?, (on 2 benito HN, Ensure pudding), and on thin soup accidentally given without thickener. Case reviewed with Neurology. Swallowing not at baseline. For MBS today.
--- NOTE | 2019-05-29 12:01 | PN ---
Progress Note, Physician History of Present Illness: stable no new issues - Current Medication List Current Medications: Active Medications Heparin Sodium (Porcine) (Heparin -) 5,000 unit SQ BID [facility] Last Admin: 05/29/19 10:02 Dose: 5,000 unit Sodium Chloride (1/2 Normal Saline) 1,000 mls @ 100 mls/hr IV ASDIR [facility]ENNY Last Admin: 05/29/19 06:26 Dose: 100 mls/hr Ceftriaxone Sodium 1 gm/ (Dextrose) 50 mls @ 100 mls/hr IVPB DAILY [facility]; Protocol Last Admin: 05/29/19 10:02 Dose: 100 mls/hr Levothyroxine Sodium (Synthroid -) 50 mcg PO [id number]@0700 [facility] Last Admin: 05/29/19 06:24 Dose: 50 mcg - Objective Vital Signs: Vital Signs Temperature 98.7 F 05/29/19 08:57 Pulse Rate 66 05/29/19 08:57 Respiratory Rate 20 05/29/19 08:57 Blood Pressure 130/77 05/29/19 08:57 O2 Sat by Pulse Oximetry (%) 95 05/29/19 08:57 Labs: CBC, BMP 05/29/19 06:10 05/29/19 06:10 INR, PTT INR 1.01 (0.83-1.09) 05/27/19 08:20
--- NOTE | 2019-05-29 22:10 | CONSULT ---
Consult - text type - Consultation Consultation Note: NEUROLOGY CONSULT GREATLY APPRECIATED: Events reviewed. Pt's aide at bedside. This 74 yo RH woman lives in a alf. Independent in ADL's and ambulation per aide. PMHX: dwarfism, static encephalopathy, hypothyrodism, HTN, HLD, ? seizures ( reportedly quiescent on no AEDs), valve defect and recurrent UTI. On: Oscal, lactulose, levothyroxine Admitted after aide found her "more tired than usual" after morning meds and found hypothermic (90F!) and hypoxemic so EMS called. While in ED, witnessed L eye "deviated inward more than usual" (aide notes it normally is fixed inward) and CT obtained. Head CT (reviewed): Chronic ventricular dilation unchanged from 2017. Chronic osseous calcification of L orbit. PT seen today and aide notes "she is back to herself today." WBC= 7.2; TSH= 3.10; UA/UC neg- on IV fluids and ceftriaxone; TP= 6.3 and albumin 2.9 ARSEN: T90-> 97.9; Cor reg. Neck supple. Short-Stature. Club feet. Large ears and dentition. L arm wrapped in gauze over IV site. NEURO: Awake, alert, speech sparse and high-pitched. Follows simple commands. Static Encephalopathy. CNII-CNXII: Eyes closely set. Full EOM's OD. Congenital esotropia OS. Full armendariz. No facial. Tolerating PO. Motor: Symmetric grasps. No obvious drift. Decreased JEFF's B/L. Strength normal. Reflexes normal. Plantars silent. Coordination: No FTN dystaxia Sensation: Withdraws to pinch in all fours. 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 secondary to genetic abnormality, i.e. Pitts's Syndrome) ?Seizure disorder Possibly worsened by Toxic-Metabolic Encephalopathy Suggest: Continue antibiotics and hydration Review prior medications from alf and/or workup of seizure disorder Add thiamine 250 mg IVP q8H x 3 days Ophthalmology consult Thank you very much, Gregorio Adhikari MD
--- NOTE | 2019-05-29 22:29 | PN ---
Progress Note, Physician History of Present Illness: As per aide pt is more awake today - Current Medication List Current Medications: Active Medications Heparin Sodium (Porcine) (Heparin -) 5,000 unit SQ BID [facility] Last Admin: 05/29/19 21:53 Dose: 5,000 unit Sodium Chloride (1/2 Normal Saline) 1,000 mls @ 100 mls/hr IV ASDIR BENNY Last Admin: 05/29/19 06:26 Dose: 100 mls/hr Ceftriaxone Sodium 1 gm/ (Dextrose) 50 mls @ 100 mls/hr IVPB DAILY [facility]; Protocol Last Admin: 05/29/19 10:02 Dose: 100 mls/hr Levothyroxine Sodium (Synthroid -) 50 mcg PO SuMoWeThFrSa@0700 [facility] Last Admin: 05/29/19 06:24 Dose: 50 mcg - Objective Vital Signs: Vital Signs Temperature 97.9 F 05/29/19 20:00 Pulse Rate 78 05/29/19 20:00 Respiratory Rate 20 05/29/19 20:00 Blood Pressure 147/82 05/29/19 20:00 O2 Sat by Pulse Oximetry (%) 95 05/29/19 20:00 Neck: Yes: WNL, Supple Cardiovascular: Yes: WNL, Regular Rate and Rhythm Respiratory: Yes: WNL, Regular, CTA Bilaterally Gastrointestinal: Yes: WNL, Normal Bowel Sounds, Soft Labs: CBC, BMP 05/29/19 06:10 05/29/19 06:10 INR, PTT INR 1.01 (0.83-1.09) 05/27/19 08:20 Problem List - Problems (1) Hypotension Assessment/Plan: Bp slightly improving Decrease IV fluids ?Dehydration vs sepsis Cont IV ceftriaxone Cultures remain negative Code(s): I95.9 - HYPOTENSION, UNSPECIFIED (2) Hypothermia Assessment/Plan: Temp now improved Code(s): T68.XXXA - HYPOTHERMIA, INITIAL ENCOUNTER Qualifiers: Encounter type: initial encounter Qualified Code(s): T68.XXXA - Hypothermia , initial encounter (3) Hypothyroid Assessment/Plan: Cont levothyroxine Code(s): E03.9 - HYPOTHYROIDISM, UNSPECIFIED (4) Dwarfism Code(s): E34.3 - SHORT STATURE DUE TO ENDOCRINE DISORDER (5) Learning disability Code(s): F81.9 - DEVELOPMENTAL DISORDER OF SCHOLASTIC SKILLS, UNSPECIFIED
[2019-05-30] MEDS: THIAMINE HCL 200 MG/2 ML VIAL IVPB SCH ×3 (05:52→21:59)
[2019-05-30] MEDS: LEVOTHYROXINE NA 50 MCG TABLET (FP) PO SCH (06:12)
[2019-05-30] MEDS: HEPARIN NA (PORCINE) 5,000 UNITS/ML 1ML VIAL SQ SCH ×2 (10:07→21:59)
[2019-05-30] MEDS: CEFTRIAXONE 1 GM in DEXTROSE 5%-WATER - 50 ML IVPB SCH (10:07)
--- NOTE | 2019-05-30 11:03 | PN ---
Progress Note, TIP BANDER - Note Progress Note: Pt transferred to 5 w. Reviewed MBS results with staff. Pooling of contrast in pharynx with impaired UES relaxation, places pt at risk of aspiration/choking. Aspiration on continuous drinking of thin liquid. I had asked care home caretakers to please fax results of recent MBS to compare results in order to determine if Dysphagia symptoms are acute. They report coughing is new. 1/2 tsp at a time chin tuck 2 swallows alternate with sip of thin liquid No continuous drinking Finish meal with single sips of thin liquid Monitor tolerance
[2019-05-30] MEDS: DEXTROSE 5%-0.45% SALINE 1,000 ML IV SCH (11:55)
--- NOTE | 2019-05-30 12:20 | PN ---
Progress Note, Physician History of Present Illness: stable no new issues looks like at baseline - Current Medication List Current Medications: Active Medications Heparin Sodium (Porcine) (Heparin -) 5,000 unit SQ BID [facility] Last Admin: 05/30/19 10:07 Dose: 5,000 unit Dextrose/Sodium Chloride (D5-1/2ns -) 1,000 mls @ 75 mls/hr IV ASDIR [facility] Last Admin: 05/30/19 11:55 Dose: 75 mls/hr Levothyroxine Sodium (Synthroid -) 50 mcg PO SuMoWeThFrSa@0700 [facility] Last Admin: 05/30/19 06:12 Dose: 50 mcg Thiamine HCl (Vitamin B1 Injection -) 200 mg IVPB TID [facility] Stop: 06/02/19 05:59 Last Admin: 05/30/19 05:52 Dose: 200 mg - Objective Vital Signs: Vital Signs Temperature 98 F 05/30/19 08:37 Pulse Rate 64 05/30/19 08:37 Respiratory Rate 16 05/30/19 08:37 Blood Pressure 122/64 05/30/19 08:37 O2 Sat by Pulse Oximetry (%) 95 05/29/19 21:00 Constitutional: Yes: No Distress, Calm Cardiovascular: Yes: S1, S2 Respiratory: Yes: Regular, CTA Bilaterally Gastrointestinal: Yes: Normal Bowel Sounds, Soft Musculoskeletal: Yes: WNL Extremities: Yes: WNL Neurological: Yes: Alert, Oriented Psychiatric: Yes: Alert, Oriented Labs: CBC, BMP 05/29/19 06:10 05/29/19 06:10 INR, PTT INR 1.01 (0.83-1.09) 05/27/19 08:20 Assessment/Plan Assessment/Plan Problems (1) Anemia Code(s): D64.9 - ANEMIA, UNSPECIFIED (2) AMS (altered mental status) Code(s): R41.82 - ALTERED MENTAL STATUS, UNSPECIFIED Qualifiers: Altered mental status type: unspecified Qualified Code(s): R41.82 - Altered mental status, unspecified (3) Hypothermia Code(s): T68.XXXA - HYPOTHERMIA, INITIAL ENCOUNTER Qualifiers: Encounter type: initial encounter Qualified Code(s): T68.XXXA - Hypothermia , initial encounter (4) Dwarfism Code(s): E34.3 - SHORT STATURE DUE TO ENDOCRINE DISORDER (5) Hypertension Code(s): I10 - ESSENTIAL (PRIMARY) HYPERTENSION (6) Hypothyroid Code(s): E03.9 - HYPOTHYROIDISM, UNSPECIFIED (7) Hypoalbuminemia Code(s): E88.09 - OTH DISORDERS OF PLASMA-PROTEIN METABOLISM, NEC plan continue current mgmt rest as per team
--- NOTE | 2019-05-30 20:56 | PN ---
Progress Note, Physician - Current Medication List Current Medications: Active Medications Heparin Sodium (Porcine) (Heparin -) 5,000 unit SQ BID [facility] Last Admin: 05/30/19 10:07 Dose: 5,000 unit Dextrose/Sodium Chloride (D5-1/2ns -) 1,000 mls @ 75 mls/hr IV ASDIR [facility] Last Admin: 05/30/19 11:55 Dose: 75 mls/hr Levothyroxine Sodium (Synthroid -) 50 mcg PO SuMoWeThFrSa@0700 [facility] Last Admin: 05/30/19 06:12 Dose: 50 mcg Thiamine HCl (Vitamin B1 Injection -) 200 mg IVPB TID [facility] Stop: 06/02/19 05:59 Last Admin: 05/30/19 15:30 Dose: 200 mg - Objective Vital Signs: Vital Signs Temperature 98.0 F 05/30/19 18:07 Pulse Rate 83 05/30/19 18:07 Respiratory Rate 16 05/30/19 18:07 Blood Pressure 139/76 05/30/19 18:07 O2 Sat by Pulse Oximetry (%) 95 05/30/19 13:00 Labs: CBC, BMP 05/29/19 06:10 05/29/19 06:10 INR, PTT INR 1.01 (0.83-1.09) 05/27/19 08:20 Problem List - Problems (1) Hypotension Code(s): I95.9 - HYPOTENSION, UNSPECIFIED (2) Hypothermia Code(s): T68.XXXA - HYPOTHERMIA, INITIAL ENCOUNTER Qualifiers: Encounter type: initial encounter Qualified Code(s): T68.XXXA - Hypothermia , initial encounter (3) Hypothyroid Code(s): E03.9 - HYPOTHYROIDISM, UNSPECIFIED (4) Dwarfism Code(s): E34.3 - SHORT STATURE DUE TO ENDOCRINE DISORDER (5) Learning disability Code(s): F81.9 - DEVELOPMENTAL DISORDER OF SCHOLASTIC SKILLS, UNSPECIFIED
[2019-05-31] MEDS: DEXTROSE 5%-0.45% SALINE 1,000 ML IV SCH (01:38)
[2019-05-31] MEDS: THIAMINE HCL 200 MG/2 ML VIAL IVPB SCH ×3 (06:16→22:26)
[2019-05-31] MEDS: LEVOTHYROXINE NA 50 MCG TABLET (FP) PO SCH (06:16)
[2019-05-31] MEDS: HEPARIN NA (PORCINE) 5,000 UNITS/ML 1ML VIAL SQ SCH ×2 (11:47→22:30)
[2019-05-31] MEDS: PIPERACILLIN/TAZOB 3.375 GM 3.375 GM in DEXTROSE 5%-WATER - 50 ML IVPB SCH (12:29)
--- NOTE | 2019-05-31 12:40 | PN ---
Progress Note, Physician History of Present Illness: stale no new issues - Current Medication List Current Medications: Active Medications Heparin Sodium (Porcine) (Heparin -) 5,000 unit SQ BID [facility] Last Admin: 05/31/19 11:47 Dose: 5,000 unit Dextrose/Sodium Chloride (D5-1/2ns -) 1,000 mls @ 75 mls/hr IV ASDIR [facility] Last Admin: 05/31/19 01:38 Dose: 75 mls/hr Levothyroxine Sodium (Synthroid -) 50 mcg PO SuMoWeThFrSa@0700 [facility] Last Admin: 05/31/19 06:16 Dose: 50 mcg Thiamine HCl (Vitamin B1 Injection -) 200 mg IVPB TID [facility] Stop: 06/02/19 05:59 Last Admin: 05/31/19 06:16 Dose: 200 mg - Objective Vital Signs: Vital Signs Temperature 97.8 F 05/31/19 09:38 Pulse Rate 67 05/31/19 09:38 Respiratory Rate 18 05/31/19 09:38 Blood Pressure 125/65 05/31/19 09:38 O2 Sat by Pulse Oximetry (%) 95 05/30/19 21:00 Constitutional: Yes: No Distress, Calm Cardiovascular: Yes: S1, S2 Respiratory: Yes: Regular, CTA Bilaterally Gastrointestinal: Yes: Normal Bowel Sounds, Soft Musculoskeletal: Yes: WNL Extremities: Yes: WNL Neurological: Yes: Alert, Oriented Psychiatric: Yes: Alert, Oriented Labs: CBC, BMP 05/29/19 06:10 05/29/19 06:10 INR, PTT INR 1.01 (0.83-1.09) 05/27/19 08:20 Assessment/Plan Assessment/Plan Problems (1) Anemia Code(s): D64.9 - ANEMIA, UNSPECIFIED (2) AMS (altered mental status) Code(s): R41.82 - ALTERED MENTAL STATUS, UNSPECIFIED Qualifiers: Altered mental status type: unspecified Qualified Code(s): R41.82 - Altered mental status, unspecified (3) Hypothermia Code(s): T68.XXXA - HYPOTHERMIA, INITIAL ENCOUNTER Qualifiers: Encounter type: initial encounter Qualified Code(s): T68.XXXA - Hypothermia , initial encounter (4) Dwarfism Code(s): E34.3 - SHORT STATURE DUE TO ENDOCRINE DISORDER (5) Hypertension Code(s): I10 - ESSENTIAL (PRIMARY) HYPERTENSION (6) Hypothyroid Code(s): E03.9 - HYPOTHYROIDISM, UNSPECIFIED (7) Hypoalbuminemia Code(s): E88.09 - OTH DISORDERS OF PLASMA-PROTEIN METABOLISM, NEC plan continue current mgmt rest as per team
--- NOTE | 2019-05-31 14:27 | PN ---
Progress Note, [employer] - Note Progress Note: Selected Entries 05/28/19 05/28/19 05/28/19 01:47 03:24 06:00 Breakfast Lunch Supper Temperature 97.5 F L 97.5 F L 96.5 F L 05/28/19 05/28/19 05/28/19 10:30 14:00 17:00 Breakfast 25% Lunch 25% Supper Temperature 98.3 F 97.4 F L 05/28/19 05/29/19 05/29/19 18:58 01:58 08:57 Breakfast Lunch Supper 75% Temperature 97.4 F L 98.7 F 05/29/19 05/29/19 05/29/19 12:16 14:00 17:00 Breakfast 50% Lunch Supper Temperature 97.4 F L 97.5 F L 05/29/19 05/29/19 05/30/19 20:01 22:00 06:00 Breakfast Lunch Supper 75% Temperature 97.9 F 98.6 F 05/30/19 05/30/19 05/30/19 08:37 14:00 18:07 Breakfast Lunch Supper 75% Temperature 98 F 98.8 F 98.0 F 05/30/19 05/31/19 05/31/19 22:00 06:00 09:38 Breakfast Lunch Supper Temperature 97.2 F L 97.8 F 97.8 F 05/31/19 12:00 Breakfast 50% Lunch Supper Temperature Laboratory Tests 05/29/19 06:10 WBC 6.5 Pooling of contrast in pharynx with impaired UES relaxation, places pt at risk of aspiration/choking. Aspiration on continuous drinking of thin liquid. 1/2 tsp at a time chin tuck 2 swallows alternate with sip of thin liquid No continuous drinking Finish meal with single sips of thin liquid Monitor tolerance
--- NOTE | 2019-05-31 23:45 | PN ---
Progress Note, Physician - Current Medication List Current Medications: Active Medications Heparin Sodium (Porcine) (Heparin -) 5,000 unit SQ BID [facility] Last Admin: 05/31/19 22:30 Dose: 5,000 unit Levothyroxine Sodium (Synthroid -) 50 mcg PO SuMoFabiola@0700 [facility] Last Admin: 05/31/19 06:16 Dose: 50 mcg Thiamine HCl (Vitamin B1 Injection -) 200 mg IVPB TID [facility] Stop: 06/02/19 05:59 Last Admin: 05/31/19 22:26 Dose: 200 mg - Objective Vital Signs: Vital Signs Temperature 97.9 F 05/31/19 17:47 Pulse Rate 78 05/31/19 17:47 Respiratory Rate 18 05/31/19 17:47 Blood Pressure 129/65 05/31/19 17:47 O2 Sat by Pulse Oximetry (%) 96 05/31/19 09:00 Labs: CBC, BMP 05/29/19 06:10 05/29/19 06:10 INR, PTT INR 1.01 (0.83-1.09) 05/27/19 08:20 Problem List - Problems (1) Hypotension Code(s): I95.9 - HYPOTENSION, UNSPECIFIED (2) Hypothermia Code(s): T68.XXXA - HYPOTHERMIA, INITIAL ENCOUNTER Qualifiers: Encounter type: initial encounter Qualified Code(s): T68.XXXA - Hypothermia , initial encounter (3) Hypothyroid Code(s): E03.9 - HYPOTHYROIDISM, UNSPECIFIED (4) Dwarfism Code(s): E34.3 - SHORT STATURE DUE TO ENDOCRINE DISORDER (5) Learning disability Code(s): F81.9 - DEVELOPMENTAL DISORDER OF SCHOLASTIC SKILLS, UNSPECIFIED
--- NOTE | 2019-06-01 06:04 | PN ---
Progress Note, Physician Chief Complaint: Pt is alert, smiling; walks slowly in room with assistance. History of Present Illness: 74-year-old white female history of dwarfism, intellectual disability, hypertension, lipidemia, seizures, hypothyroidism, recent UTIs, presents for evaluation of altered mental status. Per the aide, the patient was in her usual state health yesterday; this morning, the evening team noticed she was a bit sluggish to respond to when they went to wake her at 6:30. When the daytime aide went to check on her and she was not as responsive as she normally is, they called EMS. Upon arrival the patient was noted to have medial deviation of gaze of her left eye; code justin was called. The patient was rushed to CT; it appeared normal. Bmg was 112. Upon arrival back to the ED, she was noted to be hypothermic; sepsis order was placed. Allergies: NKA Social history: [facility] Surgical history: splenectomy PCP: Monserrat Wills - Current Medication List Current Medications: Active Medications Heparin Sodium (Porcine) (Heparin -) 5,000 unit SQ BID [facility] Last Admin: 05/31/19 22:30 Dose: 5,000 unit Levothyroxine Sodium (Synthroid -) 50 mcg PO SuMoWeThFrSa@0700 [facility] Last Admin: 05/31/19 06:16 Dose: 50 mcg Thiamine HCl (Vitamin B1 Injection -) 200 mg IVPB TID [facility] Stop: 06/02/19 05:59 Last Admin: 05/31/19 22:26 Dose: 200 mg - Objective Vital Signs: Vital Signs Temperature 98.1 F 06/01/19 02:00 Pulse Rate 80 06/01/19 02:00 Respiratory Rate 18 06/01/19 02:00 Blood Pressure 111/64 06/01/19 02:00 O2 Sat by Pulse Oximetry (%) 96 05/31/19 21:00 Constitutional: Yes: Calm Eyes: Yes: WNL HENT: Yes: WNL Neck: Yes: WNL Cardiovascular: Yes: S1, S2 Respiratory: Yes: Regular Gastrointestinal: Yes: Soft ...Rectal Exam: Yes: Deferred Genitourinary: No: Anuria Breast(s): Yes: WNL Musculoskeletal: Yes: Muscle Weakness Extremities: Yes: Cool Edema: No Peripheral Pulses WNL: Yes Integumentary: Yes: WNL Neurological: Yes: Alert, Unsteady Gait, Weakness ...Motor Strength: LLE, RLE (moderately decreased strength) Psychiatric: Yes: Alert, Other Labs: CBC, BMP 05/29/19 06:10 05/29/19 06:10 INR, PTT INR 1.01 (0.83-1.09) 05/27/19 08:20 - ....Imaging Chest X-ray: Image Reviewed (no acute pathology) EKG: Image Reviewed (sinus bradycardia; repolarization changes) Problem List - Problems (1) AMS (altered mental status) Assessment/Plan: ? altered thermoregulatory response-->marked hypothermia. Temperature now more normal; pt's aide says that pt was markedly improved 24 hours after admission. CXR: no acute pathology. CT head: no acute pathology. TNI < 0.02 x 2. TSH and glucose WNL. EKG: sinus bradycardia; early repolarization. ECHO: normal LVEF: abnormal diastolic compliance. Sepsis workup. Maintain hydration. 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 R/o sepsis; on empiric antibiotics. TSH WNL (on Synthroid). Code(s): T68.XXXA - HYPOTHERMIA, INITIAL ENCOUNTER Qualifiers: Encounter type: initial encounter Qualified Code(s): T68.XXXA - Hypothermia , initial encounter (3) Dwarfism Code(s): E34.3 - SHORT STATURE DUE TO ENDOCRINE DISORDER (4) Hypertension Code(s): I10 - ESSENTIAL (PRIMARY) HYPERTENSION (5) Hypothyroid Assessment/Plan: On Synthroid TSH WNL. Code(s): E03.9 - HYPOTHYROIDISM, UNSPECIFIED (6) Hypoalbuminemia Code(s): E88.09 - OTH DISORDERS OF PLASMA-PROTEIN METABOLISM, NEC (7) Diastolic CHF Assessment/Plan: no JVD; no acute pathology on CXR; no leg edema. F/u BUN/Cr, electrolytes, daily weight, Is and Os. Code(s): I50.30 - UNSPECIFIED DIASTOLIC (CONGESTIVE) HEART FAILURE (8) Megaloblastic anemia Code(s): D53.1 - OTHER MEGALOBLASTIC ANEMIAS, NOT ELSEWHERE CLASSIFIED
[2019-06-01] MEDS: LEVOTHYROXINE NA 50 MCG TABLET (FP) PO SCH (07:08)
[2019-06-01] MEDS: THIAMINE HCL 200 MG/2 ML VIAL IVPB SCH ×3 (07:08→21:46)
[2019-06-01 08:41] LABS: BASO % 0.5 % (0-2.0); EOS % 9.1 % (0-4.5); HEMOGLOBIN 10.8 GM/dL (10.7-15.3); LYMPH % 32.6 % (8-40); MCH 35.9 pg (25.7-33.7); MCHC 33.8 g/dl (32.0-36.0); MEAN CELL VOLUME 106.1 fl (80-96); MEAN PLT VOLUME 11.4 fl (7.5-11.1); NEUT % 46.8 % (42.8-82.8); PLATELET COUNT 177 K/MM3 (134-434); RBC 3.02 M/mm3 (3.60-5.2); RDW 15.3 % (11.6-15.6); WHITE BLOOD COUNT 7.2 K/mm3 (4.0-10.0)
[2019-06-01 09:32] LABS: ALBUMIN 2.8 g/dl (3.4-5.0); BILIRUBIN,TOTAL 0.2 mg/dL (0.2-1); BLOOD UREA NITROGEN 14.4 mg/dL (7-18); CALCIUM 9.2 mg/dL (8.5-10.1); POTASSIUM 4.5 mmol/L (3.5-5.1); TOT PROT 5.9 g/dl (6.4-8.2)
--- NOTE | 2019-06-01 09:35 | PN ---
Progress Note, Physician History of Present Illness: 74-year-old white female history of dwarfism, intellectual disability, hypertension, lipidemia, seizures, hypothyroidism, thrombocytopenia, recent UTIs presents for evaluation of altered mental status. Per the aide, the patient was in her usual state health yesterday; this morning, the evening team noticed she was a bit sluggish to respond to when they went to wake her at 6: 30. When the daytime aide went to check on her and she was not as responsive as she normally is, they called EMS. Upon arrival the patient was noted to have medial deviation of gaze of her left eye; code justin was called. The patient was rushed to CT; it appeared normal. Bmg was 112. Upon arrival back to the ED , she was noted to be hypothermic; sepsis order was placed. - Current Medication List Current Medications: Active Medications Heparin Sodium (Porcine) (Heparin -) 5,000 unit SQ BID [facility] Last Admin: 05/31/19 22:30 Dose: 5,000 unit Levothyroxine Sodium (Synthroid -) 50 mcg PO SuMoWeThFrSa@0700 [facility] Last Admin: 06/01/19 07:08 Dose: 50 mcg Thiamine HCl (Vitamin B1 Injection -) 200 mg IVPB TID [facility] Stop: 06/02/19 05:59 Last Admin: 06/01/19 07:08 Dose: 200 mg - Objective Vital Signs: Vital Signs Temperature 98.0 F 06/01/19 09:11 Pulse Rate 78 06/01/19 09:11 Respiratory Rate 20 06/01/19 09:11 Blood Pressure 122/63 06/01/19 09:11 O2 Sat by Pulse Oximetry (%) 96 05/31/19 21:00 Eyes: Yes: WNL, Conjunctiva Clear, EOM Intact HENT: Yes: WNL, Atraumatic, Normocephalic Neck: Yes: WNL, Supple, Trachea Midline Cardiovascular: Yes: WNL, Regular Rate and Rhythm Respiratory: Yes: WNL, Regular, CTA Bilaterally Gastrointestinal: Yes: WNL, Normal Bowel Sounds Genitourinary: Yes: WNL Musculoskeletal: Yes: WNL Extremities: Yes: WNL Edema: No Integumentary: Yes: WNL Neurological: Yes: WNL, Alert, Oriented ...Motor Strength: WNL Psychiatric: Yes: WNL Labs: CBC, BMP 06/01/19 07:50 06/01/19 07:50 INR, PTT INR 1.01 (0.83-1.09) 05/27/19 08:20 Assessment/Plan - Problems (1) AMS (altered mental status) Assessment/Plan: ? altered thermoregulatory response-->marked hypothermia. Temperature now more normal; pt's aide says that pt was markedly improved 24 hours after admission. CXR: no acute pathology. CT head: no acute pathology. TNI < 0.02 x 2. TSH and glucose WNL. EKG: sinus bradycardia; early repolarization. ECHO: normal LVEF: abnormal diastolic compliance. Sepsis workup. Maintain hydration. 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 R/o sepsis; on empiric antibiotics. TSH WNL (on Synthroid). Code(s): T68.XXXA - HYPOTHERMIA, INITIAL ENCOUNTER Qualifiers: Encounter type: initial encounter Qualified Code(s): T68.XXXA - Hypothermia , initial encounter (3) Dwarfism Code(s): E34.3 - SHORT STATURE DUE TO ENDOCRINE DISORDER (4) Hypertension Code(s): I10 - ESSENTIAL (PRIMARY) HYPERTENSION (5) Hypothyroid Assessment/Plan: On Synthroid TSH WNL. Code(s): E03.9 - HYPOTHYROIDISM, UNSPECIFIED (6) Hypoalbuminemia Code(s): E88.09 - OTH DISORDERS OF PLASMA-PROTEIN METABOLISM, NEC (7) Diastolic CHF Assessment/Plan: no JVD; no acute pathology on CXR; no leg edema. F/u BUN/Cr, electrolytes, daily weight, Is and Os. Code(s): I50.30 - UNSPECIFIED DIASTOLIC (CONGESTIVE) HEART FAILURE (8) Megaloblastic anemia Code(s): D53.1 - OTHER MEGALOBLASTIC ANEMIAS, NOT ELSEWHERE CLASSIFIED
[2019-06-01] MEDS: HEPARIN NA (PORCINE) 5,000 UNITS/ML 1ML VIAL SQ SCH ×2 (10:42→21:46)
[2019-06-01 13:06] LABS: ANISOCYTOSIS 2+; MACROCYTOSIS 2+; OVALOCYTE 1+; PLATELET ESTIMATE NORMAL; TARGET CELLS 1+
--- NOTE | 2019-06-01 18:45 | PN ---
Progress Note, Physician History of Present Illness: Pt is alert, responsive. No distress noted. - Current Medication List Current Medications: Active Medications Heparin Sodium (Porcine) (Heparin -) 5,000 unit SQ BID [facility] Last Admin: 06/01/19 10:42 Dose: 5,000 unit Levothyroxine Sodium (Synthroid -) 50 mcg PO SuMoWeThFrSa@0700 [facility] Last Admin: 06/01/19 07:08 Dose: 50 mcg Thiamine HCl (Vitamin B1 Injection -) 200 mg IVPB TID [facility] Stop: 06/02/19 05:59 Last Admin: 06/01/19 14:03 Dose: 200 mg - Objective Vital Signs: Vital Signs Temperature 98.4 F 06/01/19 18:29 Pulse Rate 82 06/01/19 18:29 Respiratory Rate 20 06/01/19 18:29 Blood Pressure 132/72 06/01/19 18:29 O2 Sat by Pulse Oximetry (%) 96 06/01/19 09:00 Constitutional: Yes: No Distress Cardiovascular: Yes: Regular Rate and Rhythm Respiratory: Yes: CTA Bilaterally Gastrointestinal: Yes: Normal Bowel Sounds, Soft Integumentary: Yes: WNL Neurological: Yes: Alert Labs: CBC, BMP 06/01/19 07:50 06/01/19 07:50 INR, PTT INR 1.01 (0.83-1.09) 05/27/19 08:20 Microbiology 05/27/19 08:20 Blood - Peripheral Venous Blood Culture - Final NO GROWTH AFTER 5 DAYS INCUBATION 05/27/19 08:20 Blood - Peripheral Venous Blood Culture - Final NO GROWTH AFTER 5 DAYS INCUBATION 05/27/19 08:44 Urine - Urine Clean Catch Urine Culture - Final - ....Imaging Chest X-ray: Report Reviewed Problem List - Problems (1) AMS (altered mental status) Code(s): R41.82 - ALTERED MENTAL STATUS, UNSPECIFIED Qualifiers: Altered mental status type: unspecified Qualified Code(s): R41.82 - Altered mental status, unspecified (2) Diastolic CHF Code(s): I50.30 - UNSPECIFIED DIASTOLIC (CONGESTIVE) HEART FAILURE (3) Dwarfism Code(s): E34.3 - SHORT STATURE DUE TO ENDOCRINE DISORDER (4) Hypertension Code(s): I10 - ESSENTIAL (PRIMARY) HYPERTENSION (5) Hypothyroid Code(s): E03.9 - HYPOTHYROIDISM, UNSPECIFIED Assessment/Plan -- Pt stable off of antibiotics, continue monitor at this time
--- NOTE | 2019-06-01 22:24 | PN ---
Progress Note, Physician - Current Medication List Current Medications: Active Medications Heparin Sodium (Porcine) (Heparin -) 5,000 unit SQ BID [facility] Last Admin: 06/01/19 21:46 Dose: 5,000 unit Levothyroxine Sodium (Synthroid -) 50 mcg PO Larisa@0700 [facility] Last Admin: 06/01/19 07:08 Dose: 50 mcg Thiamine HCl (Vitamin B1 Injection -) 200 mg IVPB TID [facility] Stop: 06/02/19 05:59 Last Admin: 06/01/19 21:46 Dose: 200 mg - Objective Vital Signs: Vital Signs Temperature 98.4 F 06/01/19 18:29 Pulse Rate 82 06/01/19 18:29 Respiratory Rate 20 06/01/19 18:29 Blood Pressure 132/72 06/01/19 18:29 O2 Sat by Pulse Oximetry (%) 96 06/01/19 09:00 Labs: CBC, BMP 06/01/19 07:50 06/01/19 07:50 INR, PTT INR 1.01 (0.83-1.09) 05/27/19 08:20 Problem List - Problems (1) Hypotension Code(s): I95.9 - HYPOTENSION, UNSPECIFIED (2) Hypothermia Code(s): T68.XXXA - HYPOTHERMIA, INITIAL ENCOUNTER Qualifiers: Encounter type: initial encounter Qualified Code(s): T68.XXXA - Hypothermia , initial encounter (3) Hypothyroid Code(s): E03.9 - HYPOTHYROIDISM, UNSPECIFIED (4) Dwarfism Code(s): E34.3 - SHORT STATURE DUE TO ENDOCRINE DISORDER (5) Learning disability Code(s): F81.9 - DEVELOPMENTAL DISORDER OF SCHOLASTIC SKILLS, UNSPECIFIED
[2019-06-02] MEDS: LEVOTHYROXINE NA 50 MCG TABLET (FP) PO SCH (06:27)
--- NOTE | 2019-06-02 09:15 | PN ---
Progress Note, Physician History of Present Illness: 74-year-old white female history of dwarfism, intellectual disability, hypertension, lipidemia, seizures, hypothyroidism, thrombocytopenia, recent UTIs presents for evaluation of altered mental status. Per the aide, the patient was in her usual state health yesterday; this morning, the evening team noticed she was a bit sluggish to respond to when they went to wake her at 6: 30. When the daytime aide went to check on her and she was not as responsive as she normally is, they called EMS. Upon arrival the patient was noted to have medial deviation of gaze of her left eye; shubham anderson was called. The patient was rushed to CT; it appeared normal. Bmg was 112. Upon arrival back to the ED , she was noted to be hypothermic; sepsis order was placed. - Current Medication List Current Medications: Active Medications Heparin Sodium (Porcine) (Heparin -) 5,000 unit SQ BID [facility] Last Admin: 06/01/19 21:46 Dose: 5,000 unit Levothyroxine Sodium (Synthroid -) 50 mcg PO SuMoWeThFrSa@0700 [facility] Last Admin: 06/02/19 06:27 Dose: 50 mcg - Objective Vital Signs: Vital Signs Temperature 98.1 F 06/02/19 05:59 Pulse Rate 78 06/02/19 05:59 Respiratory Rate 18 06/02/19 05:59 Blood Pressure 133/61 06/02/19 05:59 O2 Sat by Pulse Oximetry (%) 95 06/01/19 21:00 Eyes: Yes: WNL, Conjunctiva Clear, EOM Intact HENT: Yes: WNL, Atraumatic, Normocephalic Neck: Yes: WNL, Supple, Trachea Midline Cardiovascular: Yes: WNL, Regular Rate and Rhythm Respiratory: Yes: WNL, Regular, CTA Bilaterally Gastrointestinal: Yes: WNL, Normal Bowel Sounds Genitourinary: Yes: WNL Musculoskeletal: Yes: WNL Extremities: Yes: WNL Edema: No Integumentary: Yes: WNL ...Motor Strength: WNL Psychiatric: Yes: WNL Labs: CBC, BMP 06/01/19 07:50 06/01/19 07:50 INR, PTT INR 1.01 (0.83-1.09) 05/27/19 08:20 Assessment/Plan - Problems (1) AMS (altered mental status) Assessment/Plan: ? altered thermoregulatory response-->marked hypothermia. Temperature now more normal; pt's aide says that pt was markedly improved 24 hours after admission. CXR: no acute pathology. CT head: no acute pathology. TNI < 0.02 x 2. TSH and glucose WNL. EKG: sinus bradycardia; early repolarization. ECHO: normal LVEF: abnormal diastolic compliance. Sepsis workup. Maintain hydration. Code(s): R41.82 - ALTERED MENTAL STATUS, UNSPECIFIED Qualifiers: Altered mental status type: unspecified Qualified Code(s): R41.82 - Altered mental status, unspecified (2) Hypothermia Assessment/Plan: Etiology unclear (aide says pt's room was ambulatory care coordinator the morning, but she could not say what it was overnight). R/o sepsis; on empiric antibiotics. TSH WNL (on Synthroid). Code(s): T68.XXXA - HYPOTHERMIA, INITIAL ENCOUNTER Qualifiers: Encounter type: initial encounter Qualified Code(s): T68.XXXA - Hypothermia , initial encounter (3) Dwarfism Code(s): E34.3 - SHORT STATURE DUE TO ENDOCRINE DISORDER (4) Hypertension Code(s): I10 - ESSENTIAL (PRIMARY) HYPERTENSION (5) Hypothyroid Assessment/Plan: On Synthroid TSH WNL. Code(s): E03.9 - HYPOTHYROIDISM, UNSPECIFIED (6) Hypoalbuminemia Code(s): E88.09 - OTH DISORDERS OF PLASMA-PROTEIN METABOLISM, NEC (7) Diastolic CHF Assessment/Plan: no JVD; no acute pathology on CXR; no leg edema. F/u BUN/Cr, electrolytes, daily weight, Is and Os. Code(s): I50.30 - UNSPECIFIED DIASTOLIC (CONGESTIVE) HEART FAILURE (8) Megaloblastic anemia Code(s): D53.1 - OTHER MEGALOBLASTIC ANEMIAS, NOT ELSEWHERE CLASSIFIED
[2019-06-02] MEDS: HEPARIN NA (PORCINE) 5,000 UNITS/ML 1ML VIAL SQ SCH ×2 (10:22→21:24)
--- NOTE | 2019-06-02 16:51 | PN ---
Progress Note, Physician History of Present Illness: Pt is resting comfortably. Remains afebrile. No new events reported. - Current Medication List Current Medications: Active Medications Heparin Sodium (Porcine) (Heparin -) 5,000 unit SQ BID [facility] Last Admin: 06/02/19 10:22 Dose: 5,000 unit Levothyroxine Sodium (Synthroid -) 50 mcg PO SuMoWeThFrSa@0700 [facility] Last Admin: 06/02/19 06:27 Dose: 50 mcg - Objective Vital Signs: Vital Signs Temperature 98.5 F 06/02/19 14:00 Pulse Rate 71 06/02/19 14:00 Respiratory Rate 18 06/02/19 14:00 Blood Pressure 107/59 L 06/02/19 14:00 O2 Sat by Pulse Oximetry (%) 95 06/02/19 09:00 Constitutional: Yes: No Distress Cardiovascular: Yes: Regular Rate and Rhythm Respiratory: Yes: Regular Gastrointestinal: Yes: Normal Bowel Sounds, Soft Genitourinary: Yes: WNL Integumentary: Yes: WNL Neurological: Yes: Alert Labs: CBC, BMP 06/01/19 07:50 06/01/19 07:50 INR, PTT INR 1.01 (0.83-1.09) 05/27/19 08:20 Microbiology 05/27/19 08:20 Blood - Peripheral Venous Blood Culture - Final NO GROWTH AFTER 5 DAYS INCUBATION 05/27/19 08:20 Blood - Peripheral Venous Blood Culture - Final NO GROWTH AFTER 5 DAYS INCUBATION 05/27/19 08:44 Urine - Urine Clean Catch Urine Culture - Final Problem List - Problems (1) AMS (altered mental status) Code(s): R41.82 - ALTERED MENTAL STATUS, UNSPECIFIED Qualifiers: Altered mental status type: unspecified Qualified Code(s): R41.82 - Altered mental status, unspecified (2) Diastolic CHF Code(s): I50.30 - UNSPECIFIED DIASTOLIC (CONGESTIVE) HEART FAILURE (3) Dwarfism Code(s): E34.3 - SHORT STATURE DUE TO ENDOCRINE DISORDER (4) Hypertension Code(s): I10 - ESSENTIAL (PRIMARY) HYPERTENSION (5) Hypothyroid Code(s): E03.9 - HYPOTHYROIDISM, UNSPECIFIED Assessment/Plan AMS Hypothermia Dwarfism Anemia -- clinically improved, continue monitor off of antibiotics
--- NOTE | 2019-06-02 22:16 | PN ---
Progress Note, Physician History of Present Illness: No new complaints - Current Medication List Current Medications: Active Medications Heparin Sodium (Porcine) (Heparin -) 5,000 unit SQ BID [facility] Last Admin: 06/02/19 21:24 Dose: 5,000 unit Levothyroxine Sodium (Synthroid -) 50 mcg PO Larisa@0700 [facility] Last Admin: 06/02/19 06:27 Dose: 50 mcg - Objective Vital Signs: Vital Signs Temperature 98.0 F 06/02/19 18:20 Pulse Rate 66 06/02/19 18:20 Respiratory Rate 18 06/02/19 18:20 Blood Pressure 122/61 06/02/19 18:20 O2 Sat by Pulse Oximetry (%) 95 06/02/19 09:00 Cardiovascular: Yes: WNL, Regular Rate and Rhythm Respiratory: Yes: WNL, Regular, CTA Bilaterally Gastrointestinal: Yes: WNL, Normal Bowel Sounds, Soft Labs: CBC, BMP 06/01/19 07:50 06/01/19 07:50 INR, PTT INR 1.01 (0.83-1.09) 05/27/19 08:20 Problem List - Problems (1) Hypotension Assessment/Plan: DC planning for am BP improved IV fluids dc'ed ?Dehydration vs sepsis Antibxs dc'ed Cultures remain negative Code(s): I95.9 - HYPOTENSION, UNSPECIFIED (2) Hypothermia Assessment/Plan: Resolved Code(s): T68.XXXA - HYPOTHERMIA, INITIAL ENCOUNTER Qualifiers: Encounter type: initial encounter Qualified Code(s): T68.XXXA - Hypothermia , initial encounter (3) Hypothyroid Assessment/Plan: Cont levothyroxine Code(s): E03.9 - HYPOTHYROIDISM, UNSPECIFIED (4) Dwarfism Code(s): E34.3 - SHORT STATURE DUE TO ENDOCRINE DISORDER (5) Learning disability Code(s): F81.9 - DEVELOPMENTAL DISORDER OF SCHOLASTIC SKILLS, UNSPECIFIED
[2019-06-03] MEDS: LEVOTHYROXINE NA 50 MCG TABLET (FP) PO SCH (06:30)
[2019-06-03 06:38] VITALS: BP 127/77; PULSE 71; TEMP 97.4
--- NOTE | 2019-06-03 08:08 | PN ---
Progress Note, Physician History of Present Illness: 74-year-old white female history of dwarfism, intellectual disability, hypertension, lipidemia, seizures, hypothyroidism, thrombocytopenia, recent UTIs presents for evaluation of altered mental status. Per the aide, the patient was in her usual state health yesterday; this morning, the evening team noticed she was a bit sluggish to respond to when they went to wake her at 6: 30. When the daytime aide went to check on her and she was not as responsive as she normally is, they called EMS. Upon arrival the patient was noted to have medial deviation of gaze of her left eye; shubham anderson was called. The patient was rushed to CT; it appeared normal. Bmg was 112. Upon arrival back to the ED , she was noted to be hypothermic; sepsis order was placed. - Current Medication List Current Medications: Active Medications Heparin Sodium (Porcine) (Heparin -) 5,000 unit SQ BID [facility] Last Admin: 06/02/19 21:24 Dose: 5,000 unit Levothyroxine Sodium (Synthroid -) 50 mcg PO SuMoWeThFrSa@0700 [facility] Last Admin: 06/03/19 06:30 Dose: 50 mcg - Objective Vital Signs: Vital Signs Temperature 97.4 F L 06/03/19 06:00 Pulse Rate 71 06/03/19 06:00 Respiratory Rate 18 06/03/19 06:00 Blood Pressure 127/77 06/03/19 06:00 O2 Sat by Pulse Oximetry (%) 95 06/02/19 21:00 Eyes: Yes: WNL, Conjunctiva Clear, EOM Intact HENT: Yes: WNL, Atraumatic, Normocephalic Neck: Yes: WNL, Supple, Trachea Midline Cardiovascular: Yes: WNL, Regular Rate and Rhythm Respiratory: Yes: WNL, Regular, CTA Bilaterally Gastrointestinal: Yes: WNL, Normal Bowel Sounds Genitourinary: Yes: WNL Musculoskeletal: Yes: WNL Extremities: Yes: WNL Edema: No Integumentary: Yes: WNL ...Motor Strength: WNL Psychiatric: Yes: WNL Labs: CBC, BMP 06/01/19 07:50 06/01/19 07:50 INR, PTT INR 1.01 (0.83-1.09) 05/27/19 08:20 Assessment/Plan - Problems (1) AMS (altered mental status) Assessment/Plan: ? altered thermoregulatory response-->marked hypothermia. Temperature now more normal; pt's aide says that pt was markedly improved 24 hours after admission. CXR: no acute pathology. CT head: no acute pathology. TNI < 0.02 x 2. TSH and glucose WNL. EKG: sinus bradycardia; early repolarization. ECHO: normal LVEF: abnormal diastolic compliance. Sepsis workup. Maintain hydration. Code(s): R41.82 - ALTERED MENTAL STATUS, UNSPECIFIED Qualifiers: Altered mental status type: unspecified Qualified Code(s): R41.82 - Altered mental status, unspecified (2) Hypothermia Assessment/Plan: Etiology unclear (aide says pt's room was tier in the morning, but she could not say what it was overnight). R/o sepsis; on empiric antibiotics. TSH WNL (on Synthroid). Code(s): T68.XXXA - HYPOTHERMIA, INITIAL ENCOUNTER Qualifiers: Encounter type: initial encounter Qualified Code(s): T68.XXXA - Hypothermia , initial encounter (3) Dwarfism Code(s): E34.3 - SHORT STATURE DUE TO ENDOCRINE DISORDER (4) Hypertension Code(s): I10 - ESSENTIAL (PRIMARY) HYPERTENSION (5) Hypothyroid Assessment/Plan: On Synthroid TSH WNL. Code(s): E03.9 - HYPOTHYROIDISM, UNSPECIFIED (6) Hypoalbuminemia Code(s): E88.09 - OTH DISORDERS OF PLASMA-PROTEIN METABOLISM, NEC (7) Diastolic CHF Assessment/Plan: no JVD; no acute pathology on CXR; no leg edema. F/u BUN/Cr, electrolytes, daily weight, Is and Os. Code(s): I50.30 - UNSPECIFIED DIASTOLIC (CONGESTIVE) HEART FAILURE (8) Megaloblastic anemia Code(s): D53.1 - OTHER MEGALOBLASTIC ANEMIAS, NOT ELSEWHERE CLASSIFIED
[2019-06-03] MEDS: HEPARIN NA (PORCINE) 5,000 UNITS/ML 1ML VIAL SQ SCH (12:12)
--- NOTE | 2019-06-03 12:39 | PN ---
Progress Note, Physician History of Present Illness: stale no new issues - Current Medication List Current Medications: Active Medications Heparin Sodium (Porcine) (Heparin -) 5,000 unit SQ BID [facility] Last Admin: 06/03/19 12:12 Dose: Not Given Levothyroxine Sodium (Synthroid -) 50 mcg PO Larisa@0700 [facility] Last Admin: 06/03/19 06:30 Dose: 50 mcg - Objective Vital Signs: Vital Signs Temperature 97.4 F L 06/03/19 06:00 Pulse Rate 71 06/03/19 06:00 Respiratory Rate 18 06/03/19 06:00 Blood Pressure 127/77 06/03/19 06:00 O2 Sat by Pulse Oximetry (%) 96 06/03/19 09:00 Constitutional: Yes: No Distress, Calm Cardiovascular: Yes: S1, S2 Respiratory: Yes: Regular, CTA Bilaterally Gastrointestinal: Yes: Normal Bowel Sounds, Soft Musculoskeletal: Yes: WNL Extremities: Yes: WNL Neurological: Yes: Alert, Oriented Psychiatric: Yes: Alert, Oriented Labs: CBC, BMP 06/01/19 07:50 06/01/19 07:50 INR, PTT INR 1.01 (0.83-1.09) 05/27/19 08:20 Assessment/Plan Assessment/Plan Problems (1) Anemia Code(s): D64.9 - ANEMIA, UNSPECIFIED (2) AMS (altered mental status) Code(s): R41.82 - ALTERED MENTAL STATUS, UNSPECIFIED Qualifiers: Altered mental status type: unspecified Qualified Code(s): R41.82 - Altered mental status, unspecified (3) Hypothermia Code(s): T68.XXXA - HYPOTHERMIA, INITIAL ENCOUNTER Qualifiers: Encounter type: initial encounter Qualified Code(s): T68.XXXA - Hypothermia , initial encounter (4) Dwarfism Code(s): E34.3 - SHORT STATURE DUE TO ENDOCRINE DISORDER (5) Hypertension Code(s): I10 - ESSENTIAL (PRIMARY) HYPERTENSION (6) Hypothyroid Code(s): E03.9 - HYPOTHYROIDISM, UNSPECIFIED (7) Hypoalbuminemia Code(s): E88.09 - OTH DISORDERS OF PLASMA-PROTEIN METABOLISM, NEC plan continue current mgmt rest as per team
== END 2019-06-03 13:18 | disposition home or self-care (01) | DRG 922 ==
LOC: JER 07:47 → JERBED 13:00 → J4W 15:13 → J5S 05-30 10:08
PROVIDERS: ADMIT Internal Medicine; ATTEND Internal Medicine
DX: T68.XXXA Hypothermia, initial encounter (principal); A41.9 Sepsis, unspecified organism; G93.41 Metabolic encephalopathy; I50.30 Unspecified diastolic (congestive) heart failure; Z68.1 Body mass index [BMI] 19.9 or less, adult; E34.3 Short stature due to endocrine disorder; F79 Unspecified intellectual disabilities; I10 Essential (primary) hypertension; E78.5 Hyperlipidemia, unspecified; R41.82 Altered mental status, unspecified; I95.9 Hypotension, unspecified; E88.09 Other disorders of plasma-protein metabolism, not elsewhere classified; D64.9 Anemia, unspecified; R00.1 Bradycardia, unspecified
CPT/HCPCS: 36415; 70450-TC; 71045-TC-FY; 74230-TC-FY; 80053; 80061; 81003; 82550; 82553; 82607; 82803; 82962; 83605; 83690; 83721; 84443; 84484; 85025; 85610; 85730; 87040; 87086; 92611-GN; 93005; 93010; 93306-TC; 97116-GP; 97161-GP; 99285-25; J1644; J7030

== ENCOUNTER 2019-08-22 19:56 | Inpatient (IN) | payer OTHER ==
--- NOTE | 2019-08-22 20:35 | PDOC ---
History of Present Illness - General Stated Complaint: CHOKING Time Seen by Provider: 08/22/19 20:04 - History of Present Illness Initial Comments: 08/22/19 21:08 74 y/o F hx of intellectual disability,dwarfism, HTN,HLD, hypothyroidism, seizures, thrombocytopenia, presents to the ED after choking incident 1.5 hours ago while eating pureed food. She also vomited and had food coming out of her nose. Pt was short of breath, briefly lethargic and complaining of chest pain after the event. At this time, aide is at the bedside providing history. Pt had cold symptoms last week, from which she has since recovered and is now at her baseline. There have been no fevers, chills, diarrhea,bloody stools at the senior living. 08/22/19 21:22 Past History - Past Medical History Allergies/Adverse Reactions: Allergies Allergy/AdvReac Type Severity Reaction Status Date / Time strawberry Allergy Verified 05/27/19 08:40 Home Medications: Ambulatory Orders Calcium Carbonate/Vitamin D3 [Oystercal-D 500 mg-400 Unit Tb] 1 each PO BID 12/07 Lactulose [Cephulac -] 15 ml PO DAILY 10/26/16 Levothyroxine [Synthroid -] 50 mcg PO ASDIR 10/26/16 Pedi Multivit 158/Iron/Vit K1 [Cerovite Jr Tablet Chew] 1 tab PO DAILY 08/18/18 Thiamine HCl [B-1] 100 mg PO DAILY #30 tablet 05/31/19 Carbamide Peroxide 6.5% [Debrox -] 4 drop AU HS 08/23/19 Clotrimazole [Athletic Foot Cream] 1 applic TP BID 08/23/19 COPD: No Disorders: Yes (UTI) HTN: Yes Hypercholesterolemia: Yes Seizures: Yes Thyroid Disease: Yes (HYPO) - Psycho Social/Smoking Cessation Hx Smoking History: Never smoked Have you smoked in the past 12 months: No Hx Alcohol Use: No Drug/Substance Use Hx: No Review of Systems - Review of Systems Constitutional: No: Chills, Fever HEENTM: No: Eye Pain, Blurred Vision Respiratory: Yes: Cough, Shortness of Breath Cardiac (ROS): Yes: Chest Pain ABD/GI: Yes: Vomiting. No: Diarrhea : No: Burning, Dysuria Musculoskeletal: No: Back Pain, Joint Pain Integumentary: No: Bruising, Change in Color Neurological: No: Headache, Numbness *Physical Exam - Physical Exam General Appearance: Yes: Nourished, Appropriately Dressed, Other (small for age. hx of dwarfism) HEENT: positive: MAURO, Pharynx Normal. negative: Scleral Icterus (R), Scleral Icterus (L), Nasal Congestion, Excessive drooling Neck: negative: Tender, Stridor Respiratory/Chest: positive: Lungs Clear, Normal Breath Sounds. negative: Chest Tender, Respiratory Distress, Accessory Muscle Use, Paradoxal Breathing, Rales, Wheezing Cardiovascular: positive: Regular Rhythm, S1, S2, Bradycardia. negative: Edema , JVD Gastrointestinal/Abdominal: positive: Normal Bowel Sounds, Soft. negative: Tender, Protuberent, Distended, Guarding, Rebound, Tenderness Musculoskeletal: positive: Other (contracted upper extremities . pt only 50 inches tall.) Extremity: positive: Normal Capillary Refill, Normal Inspection, Normal Range of Motion (in lower extremities only, upper extremities contracted). negative: Tender, Coldness, Cyanosis Integumentary: positive: Normal Color, Dry, Cold. negative: Clammy, Diaphoresis , Moist Neurologic: positive: Fully Oriented, Alert (at baseline for her condition. is able to follow simple commands. ) ED Treatment Course - LABORATORY CBC & Chemistry Diagram: 08/23/19 04:00 08/22/19 21:30 Medical Decision Making - Medical Decision Making 08/22/19 21:26 74 y/o F hx of intellectual disability,dwarfism, HTN,HLD, hypothyroidism, seizures, thrombocytopenia, presents to the ED after choking incident pt's rectal temp 91.6 sepsis workup initiated cbc,cmp, ekg, ua, u.culture, troponin, lactic acid, tsh, normal saline (500cc) due to her age, size as well as normal BP. warm with citlalli hugger 08/22/19 21:50 08/22/19 23:59 Pt in good spirits. persistently 91.6.30-40 mins after starting warming with bear hugger EKG shows sinus bradycardia will increase citlalli hugger temperature Message sent to Dr. Hernandez for pt. admission for hypothermia repeat rectal temperature 93.4 pt signed out to night team David To does not admit for these patients, pt will be admitted to [facility] number ([facility]) [phone] Discharge - Discharge Information Problems reviewed: Yes Clinical Impression/Diagnosis: Hypothermia Qualifiers: Encounter type: initial encounter Qualified Code(s): T68.XXXA - Hypothermia, initial encounter Condition: Stable - Follow up/Referral - Patient Discharge Instructions - Post Discharge Activity
[2019-08-22] MEDS ORDERED: SODIUM CHLORIDE 0.9% 500 ML INFUS.BAG IV ONE (21:05)
--- NOTE | 2019-08-22 21:23 | PDOC ---
Documentation entered by Abdiel Elkins SCRIBE, acting as scribe for Chasidy Nascimento DO. Chasidy Nascimento DO: This documentation has been prepared by the Severo rm Daniel, SCRIBE, under my direction and personally reviewed by me in its entirety. I confirm that the documentation accurately reflects all work, treatment, procedures, and medical decision making performed by me. Attending Attestation - Resident Resident Name: TiffaniFrancaliantonia - ED Attending Attestation I have performed the following: I have examined & evaluated the patient, The case was reviewed & discussed with the resident, I agree w/resident's findings & plan, Exceptions are as noted - HPI HPI: 08/22/19 21:01 The patient is a 74 year old with a past medical history of dwarfism, intellectual disability, HTN, HLD, seizures, hypothyroidism, thrombocytopenia, and chronic constipation here today for evaluation of cough and vomiting. The patients aide reports that the patient was eating pudding around 7 PM tonight when she began to choke, vomited, and had some shortness of breath. Since then the patient has been coughing so the aide became concerned and called EMS. Patient denies headache, lightheadedness. Denies fever, chills. Denies chest pain. Denies nausea, vomiting, diarrhea, abdominal pain. Allergies: strawberry PCP: Wilfrid Scott - Physicial Exam PE: 08/22/19 21:01 Constitutional: Awake, alert. No acute distress. Head: Normocephalic. Atraumatic Eyes: PERRL. EOMI. Conjunctivae are not pale. ENT: Mucous membranes are moist and intact. Posterior pharynx without exudates or erythema. Uvula midline. Neck: Supple. Full ROM. No lymphadenopathy. Cardiovascular: +bradycardic. Regular rhythm. S1, S2 regular. Distal pulses are 2+ and symmetric. Pulmonary/Chest: No evidence of respiratory distress. Clear to auscultation bilaterally No wheezing, rales or rhonchi. Abdominal: Soft and non-distended. There is no tenderness. No rebound, guarding or rigidity. No organomegaly. No palpable masses. Good bowel sounds. Back: No CVA tenderness. Musculoskeletal: No edema. No cyanosis. No clubbing. Full range of motion in all extremities. No calf tenderness. Radial/pedal pulses are intact and 2+ bilaterally Skin: Skin is warm and dry. No petechiae. No purpura. Neurological: +baseline mental status. Cranial nerves II-XII are grossly intact. Normal speech. Strength is grossly symmetric. No sensory deficits. Psychiatric: Good eye contact. Normal interaction, affect and behavior. - Medical Decision Making 08/22/19 21:21 a/p: 74yo female with hx of microcephaly, hypothyroid, htn with n/v tonight while eating pudding and sob after vomiting -sent by her assisted for concern of poss aspiration -pt arrives in NAD -pt denies cp/sob, n/v or abd pain upon arrival -lungs cta, no stridor -pt smiling and at her baseline ms -pt however hypothermic upon arrival -will send labs, citlalli hensley -will obtain ekg, cxr -will monitor and reassess 08/22/19 23:08 pt on a citlalli hugger pt hypothermic tsh pending pt will need admission pending cultures 08/22/19 23:[address] del rosario, pending call back 08/23/19 01:51 case discussed with [facility] who accept pt to service Heart Score/ECG Review - ECG Intrepretation Comment:: 08/22/19 23:31 sinus alfonzo at 57, nl axis, nl interval, no acute st/t wave findings
[2019-08-22 21:52] LABS: BASO % 1.4 % (0-2.0); HEMATOCRIT 33.5 % (32.4-45.2); HEMOGLOBIN 11.4 GM/dL (10.7-15.3); LYMPH % 36.2 % (8-40); MCH 35.4 pg (25.7-33.7); MEAN PLT VOLUME 11.1 fl (7.5-11.1); MONO % 12.2 % (3.8-10.2); NEUT % 46.2 % (42.8-82.8); RBC 3.22 M/mm3 (3.60-5.2); RDW 14.3 % (11.6-15.6)
[2019-08-22 21:54] LABS: VENOUS PC02 56.3 mmHg (38-52); VENOUS PH 7.36 (7.31-7.41); VENOUS PO2 65.9 mmHg (28-48)
[2019-08-22 22:06] LABS: WHITE BLOOD COUNT 4.1 K/mm3 (4.0-10.0)
[2019-08-22 22:11] LABS: INR 0.92 (0.83-1.09); PROTHROMBIN TIME (PATIENT) 10.8 SEC (9.7-13.0)
[2019-08-22 22:14] LABS: ACTIVATED PTT 24.9 SECONDS (25.2-36.5)
[2019-08-22 22:20] LABS: ALBUMIN 3.3 g/dl (3.4-5.0); ALK PHOS 89 U/L (45-117); ANION GAP 4 MMOL/L (8-16); BILIRUBIN,TOTAL < 0.1 mg/dL (0.2-1); BLOOD UREA NITROGEN 25.6 mg/dL (7-18); CALCIUM 9.9 mg/dL (8.5-10.1); CHLORIDE 106 mmol/L (98-107); CO2 31 mmol/L (21-32); CREATININE 1.1 mg/dL (0.55-1.3); GLUCOSE,RANDOM 155 mg/dL (74-106); POTASSIUM 4.2 mmol/L (3.5-5.1); SGOT/AST 27 U/L (15-37); SGPT/ALT 28 U/L (13-61); SODIUM 141 mmol/L (136-145); TOT PROT 6.8 g/dl (6.4-8.2)
--- NOTE | 2019-08-23 02:17 | PN ---
Teaching Attending Note Name of Resident: Palomo Jeong ATTENDING PHYSICIAN STATEMENT I saw and evaluated the patient. I reviewed the resident's note and discussed the case with the resident. I agree with the resident's findings and plan as documented. SUBJECTIVE: Patient is a 74 year old woman with a PMH of Intellectual disability, Dwarfism, HTN, HLD, Hypothyroidism, Seizures, Splenectomy and Thrombocytopenia who presents to the ER after choking incident 1.5 hours ago while eating pureed food. She also vomited and had food coming out of her nose. Patient was short of breath, briefly lethargic and complaining of chest pain after the event. At this time, aide is at the bedside providing history. Patient had cold symptoms last week, from which she has since recovered and is now at her baseline. There have been no fevers, chills, diarrhea, bloody stools at the assisted. Denies alcohol, tobacco or illicit drug use. No sick contacts or recent travels. OBJECTIVE: Alert Vital Signs Period Temp Pulse Resp BP Sys/Rae Pulse Ox Last 24 Hr 91.6 F-93.4 F 50-70 16-16 161-181/74-78 98-98 HEENT: No Jaundice, eye redness or discharge, PERRLA, EOMI. Normocephalic, atraumatic. External ears are normal and hearing is grossly intact. No nasal discharge. Neck: Supple, nontender. No palpable adenopathy or thyromegaly. No JVD Chest: Good effort. Clear to auscultation and percussion. Heart: Regular. No S3, rub or murmur Abdomen: Not distended, soft, nontender and no HSM. No rebound or guarding. Normal bowel sounds. Ext: Peripheral pulses intact. No leg edema. Skin: Warm and dry. No petechiae, rash or ecchymosis. Neuro: Alert. Oriented to person and place. CN 2-12 grossly intact. Sensation grossly intact in all four extremities and DTR are symmetric. Psych: Appropriate mood and affect. Home Medications Medication Instructions Recorded Calcium Carbonate/Vitamin D3 1 each PO BID 10/26/16 [Oystercal-D 500 mg-400 Unit Tb] Lactulose [Cephulac -] 15 gm PO DAILY 10/26/16 Levothyroxine [Synthroid -] 50 mcg PO ASDIR 10/26/16 Pedi Multivit 158/Iron/Vit K1 1 tab PO DAILY 08/18/18 [Cerovite Jr Tablet Chew] Thiamine HCl [B-1] 100 mg PO DAILY #30 tablet 05/31/19 Abnormal Lab Results 08/22/19 08/22/19 08/22/19 21:30 21:30 21:30 RBC 3.22 L MCV 104.0 H MCH 35.4 H Monocytes % 12.2 H PTT (Actin FS) 24.9 L POC VBG pCO2 POC VBG pO2 VBG HCO3 VBG O2 Sat (Luís) VBG Base Excess Anion Gap 4 L BUN 25.6 H Random Glucose 155 H Total Bilirubin < 0.1 L Albumin 3.3 L 08/22/19 21:30 RBC MCV MCH Monocytes % PTT (Actin FS) POC VBG pCO2 56.3 H POC VBG pO2 65.9 H VBG HCO3 31.2 H VBG O2 Sat (Luís) 91.1 H VBG Base Excess 4.9 H Anion Gap BUN Random Glucose Total Bilirubin Albumin ASSESSMENT AND PLAN: 1. Hypothermia - Patient is in no acute distress and has no evidence of sepsis to explain hypothermia. Urinalysis pending. Temperature improving on warming blanket. Of note is that she also had hypothermia during her admission on 2018 with no confirmed sepsis. It is possible that abnormal pituitary function of dwarfism may be also be causing altered thermoregulatory response to stress. EKG shows bradycardia with rate of [address]-T wave changes. Macrocytosis is chronic and may be related to splenectomy. Will continue comprehensive care for all of patients comorbid conditions. 2. Hypoalbuminemia - Possibly due to combined effects of malnutrition and inflammation associated with comorbid chronic conditions. Will ensure adequate dietary protein intake and also consult lean manufacturing specialist. 3. DVT prophylaxis - Lovenox 40 mg SQ q 24 hours. 4. Advance directives - Full code
--- NOTE | 2019-08-23 02:47 | HP ---
CHIEF COMPLAINT: hypothermia PCP: Dr. Wilfrid Scott HISTORY OF PRESENT ILLNESS: Kandice Ta is a 74 year old female with a past medical history of dwarfism, intellectual disability, HTN, HLD, hypothyroidism, ITP s/p splenectomy, seizures (not on AE) presenting after an episode of choking on her food. Patient was eating her usual pureed diet when she began to choke on her food, had one episode of vomiting, brief lethargy, shortness of breath, some chest pain as per the aide that gave history to the ED physicians. Patient was brought to the ED for further evaluation. On arrival, the patient was noted to have a temperature of 91.6. Sepsis protocol was started and citlalli hugger was initiatied. On interview, the patient was awake, alert and oriented to self and location. She stated she felt well and did not have any acute complaints of chest pain, shortness of breath, cough, fever, chills, headaches, dizziness, lightheadedness, abdominal pain, nausea, vomiting, diarrhea, constipation, weakness, confusion, seizures, or other acute complaints. Denies sick contacts or recent travel. ER course was notable for: (1) Temp 91.6-->93.4, BP 181/74 (2) GLU 155, VBG 7.36 CO2 56.3, HCO3 31.2 (3) CXR without any acute infiltrates, poor inspiratory effort Recent Travel: denies PAST MEDICAL HISTORY: as above PAST SURGICAL HISTORY: splenectomy Social History: Smoking: denies Alcohol: denies Drugs: denies Lives in longterm. Allergies strawberry Allergy (Verified 05/27/19 08:40) HOME MEDICATIONS: Home Medications Medication Instructions Recorded Calcium Carbonate/Vitamin D3 1 each PO BID 10/26/16 [Oystercal-D 500 mg-400 Unit Tb] Lactulose [Cephulac -] 15 gm PO DAILY 10/26/16 Levothyroxine [Synthroid -] 50 mcg PO ASDIR 10/26/16 Pedi Multivit 158/Iron/Vit K1 1 tab PO DAILY 08/18/18 [Cerovite Jr Tablet Chew] Thiamine HCl [B-1] 100 mg PO DAILY #30 tablet 05/31/19 REVIEW OF SYSTEMS CONSTITUTIONAL: Absent: fever, chills, diaphoresis, generalized weakness, loss of appetite, HEENT: Absent: rhinorrhea, nasal congestion, throat pain, visual changes CARDIOVASCULAR: Absent: chest pain, syncope, palpitations, irregular heart rate, lightheadedness , RESPIRATORY: Absent: cough, shortness of breath, dyspnea with exertion, orthopnea, wheezing, GASTROINTESTINAL: Absent: abdominal pain, abdominal distension, nausea, vomiting, diarrhea, constipation, GENITOURINARY: Absent: dysuria, frequency, urgency, hesitancy, hematuria, flank pain, MUSCULOSKELETAL: Absent: myalgia, arthralgia, joint swelling, back pain, neck pain SKIN: Absent: rash, itching, pallor NEUROLOGIC: Absent: headache, focal weakness or paresthesias, dizziness, unsteady gait, seizure PSYCHIATRIC: Absent: anxiety, depression, suicidal or homicidal ideation, hallucinations. PHYSICAL EXAMINATION Vital Signs - 24 hr 08/22/19 08/22/19 08/23/19 21:01 21:06 00:00 Temperature 91.6 F L 91.6 F L 93.4 F L Pulse Rate 50 L Pulse Rate [ 70 Left Radial] Respiratory 16 16 Rate Blood Pressure 161/78 Blood Pressure 181/74 H [Right Arm] O2 Sat by Pulse 98 98 Oximetry (%) GENERAL: Awake, alert, and oriented to self and location, in no acute distress. Small appearing but not frail or malnourished. HEAD: Microcephaly EYES: Pupils equal, round and reactive to light, extraocular movements intact, sclera anicteric, conjunctiva clear. EARS, NOSE, THROAT: Oropharynx clear without exudates. Moist mucous membranes. NECK: Normal range of motion, supple without lymphadenopathy, JVD. LUNGS: Breath sounds equal, clear to auscultation bilaterally. No wheezes, and no crackles. No accessory muscle use. HEART: Regular rate and rhythm, normal S1 and S2 without murmur, rub. ABDOMEN: Soft, nontender, not distended, normoactive bowel sounds, no guarding, no rebound, no masses. No hepatomegaly or splenomegaly. MUSCULOSKELETAL: Mildly contracted upper extremities. UPPER EXTREMITIES: 2+ pulses, cool, well-perfused. No peripheral edema. LOWER EXTREMITIES: 2+ pulses, cool, well-perfused. No calf tenderness. No peripheral edema. NEUROLOGICAL: Moving all limbs spontaneously, responding to commands. CN II- XII intact. PSYCHIATRIC: Cooperative. Good eye contact. Appropriate mood and affect. Limited speech to 1-2 words answers. SKIN: Cool, dry, normal turgor, no rashes or lesions noted, normal capillary refill. Laboratory Results - last 24 hr 08/22/19 08/22/19 08/22/19 21:30 21:30 21:30 WBC 4.1 RBC 3.22 L Hgb 11.4 Hct 33.5 MCV 104.0 H MCH 35.4 H MCHC 34.0 RDW 14.3 Plt Count MPV 11.1 Absolute Neuts (auto) 1.9 Neutrophils % 46.2 Lymphocytes % 36.2 Monocytes % 12.2 H Eosinophils % 4.0 Basophils % 1.4 Nucleated RBC % 0 PT with INR 10.80 INR 0.92 PTT (Actin FS) 24.9 L VBG pH POC VBG pCO2 POC VBG pO2 VBG HCO3 VBG O2 Sat (Luís) VBG Base Excess Sodium Potassium Chloride Carbon Dioxide Anion Gap BUN Creatinine Est GFR (CKD-EPI)AfAm Est GFR (CKD-EPI)NonAf Random Glucose Lactic Acid Calcium Total Bilirubin AST ALT Alkaline Phosphatase Troponin I < 0.02 Total Protein Albumin TSH 08/22/19 08/22/19 08/22/19 21:30 21:30 21:30 WBC RBC Hgb Hct MCV MCH MCHC RDW Plt Count MPV Absolute Neuts (auto) Neutrophils % Lymphocytes % Monocytes % Eosinophils % Basophils % Nucleated RBC % PT with INR INR PTT (Actin FS) VBG pH 7.36 POC VBG pCO2 56.3 H POC VBG pO2 65.9 H VBG HCO3 31.2 H VBG O2 Sat (Luís) 91.1 H VBG Base Excess 4.9 H Sodium 141 Potassium 4.2 Chloride 106 Carbon Dioxide 31 Anion Gap 4 L BUN 25.6 H Creatinine 1.1 Est GFR (CKD-EPI)AfAm 58.09 Est GFR (CKD-EPI)NonAf 50.12 Random Glucose 155 H Lactic Acid 1.4 Calcium 9.9 Total Bilirubin < 0.1 L AST 27 ALT 28 Alkaline Phosphatase 89 Troponin I Total Protein 6.8 Albumin 3.3 L TSH 2.58 EKG--> sinus bradycardia, HR 57, no ST segment changes, QTc 432 ASSESSMENT/PLAN: Kandice Ta is a 74 year old female with a past medical history of dwarfism, intellectual disability, HTN, HLD, hypothyroidism, ITP s/p splenectomy, seizures admitted for hypothermia. Hypothermia - no likely source of infection to suggest hypothermia and not septic - can consider autonomic dysregulation of body temperature as has history of hypothermia - may consider brain MRI to evaluate structures specifically pituitary, hypothalamus, and corpus callosum to determine if structural defects are present causing periodic hypothermia - continue citlalli hugger on low settings - monitor temperature, last recorded 97.3 - TSH within normal limits, unlikely myxedema coma - may need monitoring of temperature at longterm to determine if hypothermia is cyclical in relation to time of day vs stress related vs idiopathic Choking Episode - NPO - consult speech and swallow for reevaluation, previously on dysphagia diet with thin liquids (small sips) Hypercarbia on VBG - normal pH and elevated bicarb suggesting chronic process - may have underlying sleep apnea, can consider outpatient sleep studies Hypothyroidism - TSH within normal limits - continue home Synthroid Macrocytosis - chronic - likely related to splenectomy DVT PPx - reduced dose Lovenox 30 mg subq daily FEN - IV NS at 42cc/hr, discontinue when patient eating - continue to monitor electrolytes and replete as necessary - NPO pending speech and swallow eval Dispo - admit to Med-surg Family Medical History Family History: Denies Visit type - Emergency Visit Emergency Visit: Yes ED Registration Date: 08/22/19 Care time: The patient presented to the Emergency Department on the above date and was hospitalized for further evaluation of their emergent condition. - New Patient This patient is new to me today: Yes Date on this admission: 08/23/19 - Critical Care Critical Care patient: No
[2019-08-23] MEDS: SODIUM CHLORIDE 1,000 ML IV SCH (03:40)
[2019-08-23 06:01] LABS: BASO % 0.8 % (0-2.0); EOS % 1.2 % (0-4.5); HEMATOCRIT 33.9 % (32.4-45.2); HEMOGLOBIN 11.6 GM/dL (10.7-15.3); LYMPH % 13.8 % (8-40); MCHC 34.2 g/dl (32.0-36.0); MEAN CELL VOLUME 102.4 fl (80-96); MEAN PLT VOLUME 10.7 fl (7.5-11.1); MONO % 5.7 % (3.8-10.2); NEUT % 78.5 % (42.8-82.8); PLATELET COUNT 182 K/MM3 (134-434); RBC 3.31 M/mm3 (3.60-5.2); RDW 14.3 % (11.6-15.6); WHITE BLOOD COUNT 9.6 K/mm3 (4.0-10.0)
[2019-08-23] MEDS ORDERED: LEVOTHYROXINE NA 25 MCG TABLET (FP) ONE (09:17)
[2019-08-23] MEDS: LEVOTHYROXINE NA 50 MCG TABLET (FP) PO SCH (09:25)
[2019-08-23] MEDS ORDERED: PEDI MULTIVIT PO SCH (10:00)
[2019-08-23] MEDS ORDERED: VIT K1 PO SCH (10:00)
[2019-08-23] MEDS ORDERED: LACTULOSE PO SCH (10:00)
[2019-08-23] MEDS ORDERED: IRON PO SCH (10:00)
[2019-08-23] MEDS ORDERED: [UNRECOGNIZED DRUG - OTHER] PO SCH (10:00)
[2019-08-23] MEDS ORDERED: CALCIUM 500MG/VIT-D 200 UNITS COMBO TABLET (FP) PO SCH (10:00)
[2019-08-23] MEDS ORDERED: PATIENT'S OWN MEDICATION (NON-FORMULARY) (Calcium Carbonate/Vitamin D3 [Oystercal-D 500 Mg PO SCH (10:00)
[2019-08-23] MEDS: CLOTRIMAZOLE 1% CREAM 15 GM TUBE TP SCH ×2 (11:00→22:28)
--- NOTE | 2019-08-23 11:43 | CONSULT ---
Admitting History and Physical - Primary Care Physician PCP: Kris Irizarry - Admission History of Present Illness: Per EMR- HISTORY OF PRESENT ILLNESS: Kandice Ta is a 74 year old female with a past medical history of dwarfism, intellectual disability, HTN, HLD, hypothyroidism, ITP s/p splenectomy, seizures (not on AE) presenting after an episode of choking on her food. Patient was eating her usual pureed diet when she began to choke on her food, had one episode of vomiting, brief lethargy, shortness of breath, some chest pain as per the aide that gave history to the ED physicians. Patient was brought to the ED for further evaluation. On arrival, the patient was noted to have a temperature of 91.6. Sepsis protocol was started and citlalli hensley was initiatied. On interview, the patient was awake, alert and oriented to self and location. She stated she felt well and did not have any acute complaints of chest pain, shortness of breath, cough, fever, chills, headaches, dizziness, lightheadedness, abdominal pain, nausea, vomiting, diarrhea, constipation, weakness, confusion, seizures, or other acute complaints. Denies sick contacts or recent travel. ER course was notable for: (1) Temp 91.6-->93.4, BP 181/74 (2) GLU 155, VBG 7.36 CO2 56.3, HCO3 31.2 (3) CXR without any acute infiltrates, poor inspiratory effort Last seen by me 05/26/19- Admission Reason For Visit: HYPOTHERMIA,AMS,HYPOTENSION - Diagnostics X-ray: Report Reviewed CT Scan: Report Reviewed - General Mental Status: Awake and Alert, Able to Follow Commands Attention: Distractible, Mild Impairment Ability to Follow Directions: Fair Head/Neck Control: Good - Hearing Hearing: Normal Speech Evaluation - Communication Primary Language: ARMENIAN Communication: Yes: Simple Responses - Speech Production Able to Make Needs Known: Yes: Mildly Impaired (baseline) Intelligibility: Yes: Mildly Impaired - Speech Characteristics Voice Loudness: Mildly Soft/Quiet Voice Pitch: Yes: Mildly High Voice Phonatory-based Quality: Yes: Strident, Dysphonia Speech Pattern: Impaired Speech Clarity: < 75% Nasal Resonance: Normal Articulation: Yes: Imprecise Rate of Speech: Too Fast - Language/Auditory Comprehension Follows: Yes: 1 Stage Simple Commands - Swallow Evaluation/Bedside Assessment Current Nutritional Intake: Soft, Thin Liquids Dentition: Yes: Missing Teeth Facial Symmetry at Rest: Symmetrical Facial Symmetry on Retraction: Symmetrical Lingual Movement: Symmetric Lingual Speed of Movement: Reduced Lingual Movement Strgth Against Opposition: Reduced Laryngeal Elevation: Impaired Laryngeal Movement: Labored,delay initiation Rate of Intake: Impulsive Labial Seal: WFL Chewing: Impaired Oral Prep Time: Increased A-P Transit: Impaired Timing of Swallow: Delayed Coughing/Throat Clear: Yes (delayed, harsh) - Speech Evaluation, Impression/Plan Impression: Pt's left eye was turned all the way in, not visible, but now back to baseline-assymetry to right. New onset dysphagia- cough/harsh with thin liquid trials. Delayed swallow. Aspiration suspected. On MBS 05/2019-Pooling of contrast in pharynx with impaired UES relaxation, places pt at risk of aspiration/choking. Aspiration on continuous drinking of thin liquid. Refer to full report. It was advised that the results of mbs compared to previous MBS at [facility] to determine if status was baseline or progression. It was advised that a Provale cup be ordered to reduce size of bolus pt was given. 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 No: Ascites, Cancer, Crohn's Disease, Diverticulitis, Diverticulosis, Esophageal Varices, Gastritis, GERD, GI Bleed, Hemorrhoids, Hiatal Hernia, Inflamatory Bowel Disease, Irritable Bowel Disease, Pancreatitis, Peptic Ulcer Disease, Ulcerative Colitis, Other Heme/Onc: No: Anemia Psych: Yes: Other (Mental retardation/Dwarfism) Musculoskeletal: Yes: Other (small stature) Endocrine: Yes: Hypothyroidism - Past Surgical History Past Surgical History: Yes: None - Smoking History Smoking history: Never smoked Have you smoked in the past 12 months: No - Alcohol/Substance Use Hx Alcohol Use: No History - Admission Reason For Visit: HYPOTHERMIA DUE TO NON ENVIRONMENTAL CAUSE Speech Evaluation - Communication Primary Language: ARMENIAN - Speech Characteristics Articulation: Yes: Imprecise - Swallow Evaluation/Bedside Assessment A-P Transit: Impaired Recommendations - Speech Evaluation, Impression/Plan Impression: Pt seen in May 2019. She was on reg food thin liquid with onset of choking mealtime. MBS revealed impaired relaxation of UES, with build up/poolinf of food in pharynx with aspiration risk.Rec at that time to prison was to contact [facility] to determine new onset of UES dysfunction (She had recent "normal" mbs per retirement staff.Purchase Provale cup to allow safe self drinking with only small sips allowed at a time through this cup. Recent choking event necessitates repeat mbs to visualize swallowing function and ability for PO to pass to esophagus. - Dysphagia Impressions/Plan Swallowing Skills: Impaired *Silent aspiration: cannot be R/O at bedside Recommendations: MBS w Esophagus - Recommendations Diet Consistency: NPO Liquids: NPO
[2019-08-23] MEDS: MULTIVITAMINS (DAILY MVI) TABLET (FP) PO SCH (12:03)
[2019-08-23] MEDS: THIAMINE HCL 100 MG TABLET (FP) PO SCH (12:03)
[2019-08-23] MEDS: LACTULOSE 20 GM/30 ML UDC (FOR ORAL USE ONLY) PO SCH (12:04)
[2019-08-23] MEDS: ENOXAPARIN NA (PORCINE) 40 MG/0.4 ML DISP.SYRIN SQ SCH (12:12)
--- NOTE | 2019-08-23 15:04 | EKG ---
Test Reason : Blood Pressure : / mmHG Vent. Rate : 057 BPM Atrial Rate : 057 BPM P-R Int : 136 ms QRS Dur : 088 ms QT Int : 444 ms P-R-T Axes : 076 070 050 degrees QTc Int : 432 ms SINUS BRADYCARDIA EARLY REPOLARIZATION WHEN COMPARED WITH ECG OF 27-MAY-2019 08:07, QRS DURATION HAS DECREASED Confirmed by JYOTSNA FREITAS MD ([id number]) on 08/23/2019 3:03:58 PM Referred By: Confirmed By:JYOTSNA FREITAS MD
--- NOTE | 2019-08-23 18:24 | PN ---
Physical Exam: 74 F h/o Intellectual disability, Dwarfism, HTN, HLD, Hypothyroidism, Seizures, Splenectomy and Thrombocytopenia who presents to the ER after choking incident 1.5 hours ago while eating pureed food. Patient has not had any choking incidents or acute deterioration in mental status during admission. Looks and feels comfortable, denying complaints. VSS. Underwent barium swallow, speech/ swallow recommend thin liquid puree diet. Will continue to monitor. PE GA comfortable, sitting upright in bed, off bear warmer HEENT NC/AT, microcephaly, poor dentition, neck supple, MMM, no oral ulcers Chest CTAB, no crackles or wheezing CVS S1, S2+, RRR Abd Soft, NT, thin body habitus, no guarding, BS+ Ext No LE edema, no calf tenderness Vital Signs - 24 hr 08/22/19 08/22/19 08/23/19 21:01 21:06 00:00 Temperature 91.6 F L 91.6 F L 93.4 F L Pulse Rate 50 L Pulse Rate [ 70 Left Radial] Pulse Rate [ Right Radial] Respiratory 16 16 Rate Blood Pressure 161/78 Blood Pressure [Left Arm] Blood Pressure 181/74 H [Right Arm] O2 Sat by Pulse 98 98 Oximetry (%) 08/23/19 08/23/19 08/23/19 04:00 06:05 06:53 Temperature 97.3 F L Pulse Rate Pulse Rate [ 97 H Left Radial] Pulse Rate [ 90 Right Radial] Respiratory 14 16 Rate Blood Pressure Blood Pressure 122/58 L [Left Arm] Blood Pressure 124/66 [Right Arm] O2 Sat by Pulse 99 93 L Oximetry (%) 08/23/19 08/23/19 08/23/19 08:05 10:30 15:11 Temperature 98.1 F 97.6 F 97.5 F L Pulse Rate 85 81 58 L Pulse Rate [ Left Radial] Pulse Rate [ Right Radial] Respiratory 18 20 20 Rate Blood Pressure 116/66 136/71 144/76 Blood Pressure [Left Arm] Blood Pressure [Right Arm] O2 Sat by Pulse 96 Oximetry (%) Laboratory Results - last 24 hr 08/22/19 08/22/19 08/22/19 21:30 21:30 21:30 WBC 4.1 RBC 3.22 L Hgb 11.4 Hct 33.5 MCV 104.0 H MCH 35.4 H MCHC 34.0 RDW 14.3 Plt Count MPV 11.1 Absolute Neuts (auto) 1.9 Neutrophils % 46.2 Lymphocytes % 36.2 Monocytes % 12.2 H Eosinophils % 4.0 Basophils % 1.4 Nucleated RBC % 0 PT with INR 10.80 INR 0.92 PTT (Actin FS) 24.9 L VBG pH POC VBG pCO2 POC VBG pO2 VBG HCO3 VBG O2 Sat (Luís) VBG Base Excess Sodium Potassium Chloride Carbon Dioxide Anion Gap BUN Creatinine Est GFR (CKD-EPI)AfAm Est GFR (CKD-EPI)NonAf Random Glucose Lactic Acid Calcium Total Bilirubin AST ALT Alkaline Phosphatase Troponin I < 0.02 Total Protein Albumin TSH 08/22/19 08/22/19 08/22/19 21:30 21:30 21:30 WBC RBC Hgb Hct MCV MCH MCHC RDW Plt Count MPV Absolute Neuts (auto) Neutrophils % Lymphocytes % Monocytes % Eosinophils % Basophils % Nucleated RBC % PT with INR INR PTT (Actin FS) VBG pH 7.36 POC VBG pCO2 56.3 H POC VBG pO2 65.9 H VBG HCO3 31.2 H VBG O2 Sat (Luís) 91.1 H VBG Base Excess 4.9 H Sodium 141 Potassium 4.2 Chloride 106 Carbon Dioxide 31 Anion Gap 4 L BUN 25.6 H Creatinine 1.1 Est GFR (CKD-EPI)AfAm 58.09 Est GFR (CKD-EPI)NonAf 50.12 Random Glucose 155 H Lactic Acid 1.4 Calcium 9.9 Total Bilirubin < 0.1 L AST 27 ALT 28 Alkaline Phosphatase 89 Troponin I Total Protein 6.8 Albumin 3.3 L TSH 2.58 08/23/19 08/23/19 04:00 04:00 WBC 9.6 RBC 3.31 L Hgb 11.6 Hct 33.9 MCV 102.4 H MCH 35.0 H MCHC 34.2 RDW 14.3 Plt Count 182 MPV 10.7 Absolute Neuts (auto) 7.5 Neutrophils % 78.5 D Lymphocytes % 13.8 D Monocytes % 5.7 Eosinophils % 1.2 Basophils % 0.8 Nucleated RBC % 0 PT with INR INR PTT (Actin FS) VBG pH POC VBG pCO2 POC VBG pO2 VBG HCO3 VBG O2 Sat (Luís) VBG Base Excess Sodium Potassium Chloride Carbon Dioxide Anion Gap BUN Creatinine Est GFR (CKD-EPI)AfAm Est GFR (CKD-EPI)NonAf Random Glucose Lactic Acid Calcium Total Bilirubin AST ALT Alkaline Phosphatase Troponin I Total Protein Albumin TSH 3.36 Home Medications Medication Instructions Recorded Calcium Carbonate/Vitamin D3 1 each PO BID 10/26/16 [Oystercal-D 500 mg-400 Unit Tb] Lactulose [Cephulac -] 15 ml PO DAILY 10/26/16 Levothyroxine [Synthroid -] 50 mcg PO ASDIR 10/26/16 Pedi Multivit 158/Iron/Vit K1 1 tab PO DAILY 08/18/18 [Cerovite Jr Tablet Chew] Thiamine HCl [B-1] 100 mg PO DAILY #30 tablet 05/31/19 Carbamide Peroxide 6.5% [Debrox -] 4 drop AU HS 08/23/19 Clotrimazole [Athletic Foot Cream] 1 applic TP BID 08/23/19 Current Medications Generic Name Dose Route Start Last Admin Trade Name Freq PRN Reason Stop Dose Admin Carbamide Perox/Anhydrous Glycerin 4 drop 08/23/19 22:00 Debrox - AU HS BENNY Clotrimazole 1 applic 08/23/19 10:00 Lotrimin 1% Cream - TP BID BENNY Enoxaparin Sodium 30 mg 08/23/19 10:00 08/23/19 12:12 Lovenox - SQ 30 mg DAILY BENNY Administration Sodium Chloride 1,000 mls @ 42 mls/hr 08/23/19 03:00 08/23/19 03:40 Normal Saline - IV 42 mls/hr ASDIR BENNY Administration Lactulose 10 gm 08/23/19 10:00 08/23/19 12:04 Cephulac (Oral Use) PO Not Given DAILY BENNY Levothyroxine Sodium 50 mcg 08/23/19 07:00 08/23/19 09:25 Synthroid - PO 50 mcg ACBK BENNY Administration Multivitamins/Minerals/Vitamin C 1 tab 08/23/19 10:00 08/23/19 12:03 Tab-A-Vit - PO Not Given DAILY BENNY Thiamine HCl 100 mg 08/23/19 10:00 08/23/19 12:03 Vitamin B1 - PO Not Given DAILY BENNY A/p: 74 F h/o hypothermia, hypothyroidism, dwarfism, seizure disorder, splenectomy w / thrombocytopenia, p/w choking incident from alf. No further incidents witnessed as inpatient. Choking incident ?seizure episode, no witnessed seizures seen here speech swallow done, recommend thin liquid/puree diet, will start and observe PPI Speech Swallow consult Hypothermia ?pituitary/central thermo-dysregulation has had hypothermia in the past no focal signs of infection or sepsis Bear warmer PRN Seizure disorder cont. seizure meds seizure precautions Splenectomy w/ thrombocytopenia low Plt count in the past, ?due to ITP now Plt at baseline Cont. DVT ppx w/ Lovenox Macrocytosis send B12/Folic acid levels DVT ppx: lovenox SC FEN: PO hydration, electrolytes daily, thin liquid/puree diet Visit type - Emergency Visit Emergency Visit: Yes ED Registration Date: 08/22/19 Care time: The patient presented to the Emergency Department on the above date and was hospitalized for further evaluation of their emergent condition. - New Patient This patient is new to me today: Yes Date on this admission: 08/23/19 - Critical Care Critical Care patient: No - Discharge Referral Referred to [facility] Med [facility].C[facility] No
[2019-08-23] MEDS ORDERED: PT OWN MED DRAWER 7, Y5N ONE (20:26)
[2019-08-23] MEDS: CARBAMIDE PEROXIDE 6.5% OTIC 15 ML BOTTLE AU SCH (22:28)
[2019-08-24] MEDS: LEVOTHYROXINE NA 50 MCG TABLET (FP) PO SCH (06:49)
[2019-08-24] MEDS: SODIUM CHLORIDE 1,000 ML IV SCH ×2 (06:49→15:50)
[2019-08-24 07:25] LABS: BASO % 0.7 % (0-2.0); HEMATOCRIT 31.1 % (32.4-45.2); HEMOGLOBIN 10.7 GM/dL (10.7-15.3); LYMPH % 29.1 % (8-40); MCH 35.5 pg (25.7-33.7); MCHC 34.3 g/dl (32.0-36.0); MEAN CELL VOLUME 103.7 fl (80-96); MEAN PLT VOLUME 10.3 fl (7.5-11.1); MONO % 12.4 % (3.8-10.2); NEUT % 54.8 % (42.8-82.8); PLATELET COUNT 156 K/MM3 (134-434); RDW 14.7 % (11.6-15.6); WHITE BLOOD COUNT 4.7 K/mm3 (4.0-10.0)
[2019-08-24 07:50] LABS: BLOOD UREA NITROGEN 17.2 mg/dL (7-18); CALCIUM 8.9 mg/dL (8.5-10.1); CREATININE 0.9 mg/dL (0.55-1.3); MAGNESIUM 1.9 mg/dL (1.8-2.4); POTASSIUM 3.9 mmol/L (3.5-5.1)
[2019-08-24] MEDS: ENOXAPARIN NA (PORCINE) 40 MG/0.4 ML DISP.SYRIN SQ SCH (10:14)
[2019-08-24] MEDS: LACTULOSE 20 GM/30 ML UDC (FOR ORAL USE ONLY) PO SCH (10:15)
[2019-08-24] MEDS: MULTIVITAMINS (DAILY MVI) TABLET (FP) PO SCH (10:16)
[2019-08-24] MEDS: THIAMINE HCL 100 MG TABLET (FP) PO SCH (10:16)
[2019-08-24] MEDS: CLOTRIMAZOLE 1% CREAM 15 GM TUBE TP SCH ×2 (10:16→22:10)
[2019-08-24 11:19] VITALS: BMI 17.2
--- NOTE | 2019-08-24 19:32 | DS ---
Physical Exam: 74 F h/o Intellectual disability, Dwarfism, HTN, HLD, Hypothyroidism, Seizures, Splenectomy and Thrombocytopenia who presents to the ER after choking incident 1.5 hours ago while eating pureed food. Patient has not had any choking incidents or acute deterioration in mental status during admission. Looks and feels comfortable, denying complaints. VSS. Underwent barium swallow, speech/ swallow recommend thin liquid and puree diet with further feeding tactics and recommendations which were attached to patient's discharge paperwork. Patient stable for DC back to [facility]. PE GA comfortable, sitting upright in bed, off bear warmer, eating meal HEENT NC/AT, microcephaly, poor dentition, neck supple, MMM, no oral ulcers Chest CTAB, no crackles or wheezing CVS S1, S2+, RRR Abd Soft, NT, thin body habitus, no guarding, BS+ Ext No LE edema, no calf tenderness Vital Signs - 24 hr 08/23/19 08/23/19 08/24/19 21:00 22:00 01:33 Temperature 97.5 F L 97.9 F Pulse Rate 62 57 L Respiratory 18 18 18 Rate Blood Pressure 96/40 L 112/61 O2 Sat by Pulse 96 Oximetry (%) 08/24/19 08/24/19 08/24/19 06:22 09:00 10:00 Temperature 97.8 F 97.5 F L Pulse Rate 59 L 61 Respiratory 18 18 Rate Blood Pressure 119/72 119/68 O2 Sat by Pulse 96 Oximetry (%) 08/24/19 08/24/19 14:57 18:10 Temperature 97.3 F L 97.6 F Pulse Rate 52 L 70 Respiratory 18 18 Rate Blood Pressure 133/64 129/66 O2 Sat by Pulse Oximetry (%) Microbiology 08/22/19 11:20 Urine - Urine - Catheterized Urine Culture - Final NO GROWTH OBTAINED 08/22/19 21:30 Blood - Peripheral Venous Blood Culture - Preliminary NO GROWTH OBTAINED AFTER 24 HOURS, INCUBATION TO CONTINUE FOR 4 DAYS. 08/22/19 21:30 Blood - Peripheral Venous Blood Culture - Preliminary NO GROWTH OBTAINED AFTER 24 HOURS, INCUBATION TO CONTINUE FOR 4 DAYS. Laboratory Results - last 24 hr 08/24/19 08/24/19 06:52 06:52 WBC 4.7 RBC 3.00 L Hgb 10.7 Hct 31.1 L MCV 103.7 H MCH 35.5 H MCHC 34.3 RDW 14.7 Plt Count 156 MPV 10.3 Absolute Neuts (auto) 2.6 Neutrophils % 54.8 D Lymphocytes % 29.1 D Monocytes % 12.4 H D Eosinophils % 3.0 D Basophils % 0.7 Nucleated RBC % 0 Sodium 143 Potassium 3.9 Chloride 112 H Carbon Dioxide 28 Anion Gap 4 L BUN 17.2 Creatinine 0.9 Est GFR (CKD-EPI)AfAm 74.04 Est GFR (CKD-EPI)NonAf 63.88 Random Glucose 76 Calcium 8.9 Magnesium 1.9 Intake & Output 08/21/19 08/22/19 08/23/19 08/24/19 23:59 23:59 23:59 23:59 Intake Total 418 1278 Balance 418 1278 Weight 28.576 kg 27.896 kg 27.669 kg Current Medications Generic Name Dose Route Start Last Admin Trade Name Freq PRN Reason Stop Dose Admin Carbamide Perox/Anhydrous Glycerin 4 drop 08/23/19 22:00 08/23/19 22:28 Debrox - AU 4 drop HS BENNY Administration Clotrimazole 1 applic 08/23/19 10:00 08/24/19 10:16 Lotrimin 1% Cream - TP 1 applic BID BENNY Administration Enoxaparin Sodium 30 mg 08/23/19 10:00 08/24/19 10:14 Lovenox - SQ 30 mg DAILY BENNY Administration Sodium Chloride 1,000 mls @ 42 mls/hr 08/23/19 03:00 08/24/19 15:50 Normal Saline - IV 42 mls/hr ASDIR BENNY Administration Lactulose 10 gm 08/23/19 10:00 08/24/19 10:15 Cephulac (Oral Use) PO 10 gm DAILY BENNY Administration Levothyroxine Sodium 50 mcg 08/23/19 07:00 08/24/19 06:49 Synthroid - PO 50 mcg ACBK BENNY Administration Multivitamins/Minerals/Vitamin C 1 tab 08/23/19 10:00 08/24/19 10:16 Tab-A-Vit - PO 1 tab DAILY BENNY Administration Thiamine HCl 100 mg 08/23/19 10:00 08/24/19 10:16 Vitamin B1 - PO 100 mg DAILY BENNY Administration Home Medications Medication Instructions Recorded Calcium Carbonate/Vitamin D3 1 each PO BID 10/26/16 [Oystercal-D 500 mg-400 Unit Tb] Lactulose [Cephulac -] 15 ml PO DAILY 10/26/16 Levothyroxine [Synthroid -] 50 mcg PO ASDIR 10/26/16 Pedi Multivit 158/Iron/Vit K1 1 tab PO DAILY 08/18/18 [Cerovite Jr Tablet Chew] Thiamine HCl [B-1] 100 mg PO DAILY #30 tablet 05/31/19 Carbamide Peroxide 6.5% [Debrox -] 4 drop AU HS 08/23/19 Clotrimazole [Athletic Foot Cream] 1 applic TP BID 08/23/19 A/P: 74 F h/o Intellectual disability, Dwarfism, HTN, HLD, Hypothyroidism, Seizures, Splenectomy and Thrombocytopenia admitted for choking incident, evaluated by speech and swallow team whom recommended thin liquid and puree diet. Choking incident no witnessed seizures, unlikely due to seizure activity speech swallow done, recommend thin liquid/puree diet, tolerated diet well Full speech and swallow recommendation/consult placed in discharge packet, patient's admission course and discharge plan was also discussed and reiterated to ISSAC Quinn from [facility] as well as Superviser Samuel. Copy of speech and swallow recommendations also given to HCP at bedside. cont. PPI Hypothermia ?pituitary/central thermo-dysregulation has had hypothermia in the past no focal signs of infection or sepsis reassurance Seizure disorder cont. seizure meds seizure precautions Splenectomy w/ thrombocytopenia low Plt count in the past, ?due to ITP now Plt at baseline Disposition: Patient to be discharged back to [facility]. Discharge plan discussed with ISSAC Quinn from [facility] and HCP updated on hospital course and discharge plan. Discharge medications: Please resume home medications as prescribed. Minutes to complete discharge: 45 Discharge Summary Problems reviewed: Yes Reason For Visit: HYPOTHERMIA DUE TO NON ENVIRONMENTAL CAUSE Current Active Problems Hypothermia (Acute) Condition: Good - Instructions Diet, Activity, Other Instructions: You were admitted for evaluation of choking event which occured at your facility. Your diet was adjusted by a speech and swallow specialist whom recommended thin liquid and puree diet, no meals 2 hours before bedtime and upright position for 1 hour after eating. Please see full speech and swallow consult which is attached with your discharge papers. ISSAC Quinn and sorting and folding supervisor Samuel from [facility] contacted regarding patient's discharge and disposition. If you experience any further choking events, shortness of breath, trouble breathing, chest pain, loss of consciousness, abdominal pain, distress please go to ER immediately. Referrals: Wilfrid Scott MD [Primary Care Provider] - Disposition: LONG-TERM FACILITY - Home Medications Comprehensive Discharge Medication List: Ambulatory Orders Calcium Carbonate/Vitamin D3 [Oystercal-D 500 mg-400 Unit Tb] 1 each PO BID 12/07 Lactulose [Cephulac -] 15 ml PO DAILY 10/26/16 Levothyroxine [Synthroid -] 50 mcg PO ASDIR 10/26/16 Pedi Multivit 158/Iron/Vit K1 [Cerovite Jr Tablet Chew] 1 tab PO DAILY 08/18/18 Thiamine HCl [B-1] 100 mg PO DAILY #30 tablet 05/31/19 Carbamide Peroxide 6.5% [Debrox -] 4 drop AU HS 08/23/19 Clotrimazole [Athletic Foot Cream] 1 applic TP BID 08/23/19 This patient is new to me today: No Emergency Visit: Yes ED Registration Date: 08/22/19 Care time: The patient presented to the Emergency Department on the above date and was hospitalized for further evaluation of their emergent condition. Critical Care patient: No - Discharge Referral Referred to [facility] No
[2019-08-24] MEDS ORDERED: PT OWN MED DRAWER 7, Y5N ONE (22:02)
[2019-08-24] MEDS: CARBAMIDE PEROXIDE 6.5% OTIC 15 ML BOTTLE AU SCH (22:13)
[2019-08-25] MEDS: LEVOTHYROXINE NA 50 MCG TABLET (FP) PO SCH (06:12)
[2019-08-25] MEDS: SODIUM CHLORIDE 1,000 ML IV SCH (06:12)
[2019-08-25 08:48] VITALS: BP 125/58; PULSE 52; TEMP 98.5
[2019-08-25] MEDS: LACTULOSE 20 GM/30 ML UDC (FOR ORAL USE ONLY) PO SCH (09:20)
[2019-08-25] MEDS: ENOXAPARIN NA (PORCINE) 40 MG/0.4 ML DISP.SYRIN SQ SCH (09:21)
[2019-08-25] MEDS: CLOTRIMAZOLE 1% CREAM 15 GM TUBE TP SCH (09:22)
[2019-08-25] MEDS: MULTIVITAMINS (DAILY MVI) TABLET (FP) PO SCH (09:22)
[2019-08-25] MEDS: THIAMINE HCL 100 MG TABLET (FP) PO SCH (09:22)
== END 2019-08-25 10:44 | disposition home or self-care (01) | DRG 206 ==
LOC: JER 19:56 → JERBED 22:45 → J7W 08-23 10:06
PROVIDERS: ADMIT Internal Medicine
DX: T17.928A Food in respiratory tract, part unspecified causing other injury, initial encounter (principal); E46 Unspecified protein-calorie malnutrition; Z68.1 Body mass index [BMI] 19.9 or less, adult; T68.XXXA Hypothermia, initial encounter; E34.3 Short stature due to endocrine disorder; I10 Essential (primary) hypertension; E78.5 Hyperlipidemia, unspecified; E03.9 Hypothyroidism, unspecified; G40.909 Epilepsy, unspecified, not intractable, without status epilepticus; R00.1 Bradycardia, unspecified; E88.09 Other disorders of plasma-protein metabolism, not elsewhere classified; D75.89 Other specified diseases of blood and blood-forming organs; D69.6 Thrombocytopenia, unspecified; F79 Unspecified intellectual disabilities
CPT/HCPCS: 36415; 71045-TC-FY; 74230-TC-FY; 80048; 80053; 82803; 83605; 83735; 84443; 84484; 85025; 85610; 85730; 87040; 87086; 92611-GN; 93005; 93010; 97116-GP; 97161-GP; 99285-25; J7030

== ENCOUNTER 2020-12-03 08:00 | Emergency (ER) | payer OTHER ==
[2020-12-03 08:12] VITALS: BMI 19.9
[2020-12-03 08:52] VITALS: TEMP 95.4
[2020-12-03 09:39] LABS: BASO % 0.5 % (0-2.0); EOS % 3.8 % (0-4.5); HEMOGLOBIN 11.8 GM/dL (10.7-15.3); LYMPH % 23.3 % (8-40); MCH 35.3 pg (25.7-33.7); MCHC 34.8 g/dl (32.0-36.0); MEAN CELL VOLUME 101.4 fl (80-96); MEAN PLT VOLUME 9.2 fl (7.5-11.1); MONO % 11.7 % (3.8-10.2); NEUT % 60.7 % (42.8-82.8); PLATELET COUNT 186 K/MM3 (134-434); RBC 3.35 M/mm3 (3.60-5.2); RDW 14.3 % (11.6-15.6); WHITE BLOOD COUNT 7.5 K/mm3 (4.0-10.0)
[2020-12-03 09:49] LABS: EPI CELLS 7 /uL (0-25.1); HYALINE CASTS 1 /uL (0-3.1); PH,URINE >= 9.0 (5.0-8.0); URINE APPEARANCE TURBID; URINE BACTERIA 687 /uL (0-1359); URINE BILIRUBIN NEGATIVE (NEGATIVE); URINE COLOR YELLOW; URINE GLUCOSE (UA) NEGATIVE (NEGATIVE); URINE KETONE NEGATIVE (NEGATIVE); URINE LEUK ESTERASE 3+ (NEGATIVE); URINE NITRITE NEGATIVE (NEGATIVE); URINE PROTEIN 1+ (NEGATIVE); URINE RBC 138 /uL (0-23.9); URINE UROBILINOGEN 0.2 mg/dL (0.2-1.0); URINE WBC 5079 /uL (0-25.8)
[2020-12-03 10:11] LABS: BLOOD UREA NITROGEN 13.3 mg/dL (7-18)
[2020-12-03 10:14] LABS: CREATININE 1.1 mg/dL (0.55-1.3)
[2020-12-03] MEDS ORDERED: SODIUM CHLORIDE 1,000 ML IV SCH (11:00)
[2020-12-03] MEDS ORDERED: CEFTRIAXONE 1,000 MG in DEXTROSE 5%-WATER - 50 ML IVPB ONE (12:24)
[2020-12-03 12:43] LABS: LACTIC ACID 2.8 mmol/L (0.4-2.0)
[2020-12-03] MEDS ORDERED: CEFTRIAXONE 1 GM/50 ML BAG ONE (12:44)
[2020-12-03] MEDS ORDERED: AZITHROMYCIN 250 MG TABLET PO ONE (16:01)
[2020-12-03] MEDS ORDERED: AZITHROMYCIN 250 MG TABLET ONE (16:36)
[2020-12-03 20:04] VITALS: BP 142/80; PULSE 72
== END 2020-12-03 20:04 | disposition home or self-care (01) ==
LOC: JER 08:00
DX: J18.9 Pneumonia, unspecified organism (principal); N39.0 Urinary tract infection, site not specified
CPT/HCPCS: 36415; 71045-TC-FY; 80048; 81003; 83605; 85025; 87040; 87086; 87186; 87804; 93005; 93010; 99285-25; C9803; U0003; U0005

== ENCOUNTER 2021-07-27 10:07 | Emergency (ER) | payer OTHER ==
[2021-07-27 10:20] VITALS: TEMP 98; BMI 19.9
[2021-07-27 13:07] LABS: BASO % 0.8 % (0-2.0); EOS % 3.1 % (0-4.5); HEMATOCRIT 34.4 % (32.4-45.2); HEMOGLOBIN 11.5 GM/dL (10.7-15.3); LYMPH % 44.7 % (8-40); MCH 34.6 pg (25.7-33.7); MCHC 33.4 g/dl (32.0-36.0); MEAN CELL VOLUME 103.5 fl (80-96); MEAN PLT VOLUME 10.5 fl (7.5-11.1); MONO % 12.9 % (3.8-10.2); NEUT % 38.5 % (42.8-82.8); PLATELET COUNT 254 10^3/uL (134-434); RBC 3.33 M/mm3 (3.60-5.2); RDW 14.9 % (11.6-15.6); WHITE BLOOD COUNT 7.3 K/mm3 (4.0-10.0)
[2021-07-27] MEDS ORDERED: KETAMINE HCL 200 MG/20 ML VIAL IVPUSH ONE (13:13)
[2021-07-27] MEDS ORDERED: SODIUM CHLORIDE 0.9% 500 ML INFUS.BAG IV ONE (13:14)
[2021-07-27] MEDS ORDERED: KETAMINE HCL 200 MG/20 ML VIAL ONE (13:17)
[2021-07-27 13:19] LABS: CHLORIDE 106 mmol/L (98-107); SODIUM 138 mmol/L (136-145)
[2021-07-27 13:22] LABS: BLOOD UREA NITROGEN 22.4 mg/dL (7-18); CALCIUM 9.4 mg/dL (8.5-10.1); CO2 30 mmol/L (21-32); GLUCOSE,RANDOM 76 mg/dL (74-106)
[2021-07-27 13:25] LABS: SGOT/AST 77 U/L (15-37)
[2021-07-27 13:27] LABS: BILIRUBIN,TOTAL 0.6 mg/dL (0.2-1); TOT PROT 7.3 g/dl (6.4-8.2)
[2021-07-27 13:28] LABS: ALK PHOS 92 U/L (45-117)
[2021-07-27 13:47] LABS: ANION GAP 2 MMOL/L (8-16); SGPT/ALT 36 U/L (13-61)
[2021-07-27 16:28] VITALS: BP 115/53; PULSE 56
== END 2021-07-27 15:10 | disposition home or self-care (01) ==
LOC: JER 10:07
PROC: 3E023BZ Introduction of Anesthetic Agent into Muscle, Percutaneous Approach (ICD-10-PCS; principal; 2021-07-27)
DX: N93.8 Other specified abnormal uterine and vaginal bleeding (principal)
CPT/HCPCS: 36415; 80053; 84443; 84484; 85025; 93005; 93010; 99284-25

== ENCOUNTER 2021-12-16 16:47 | Emergency (ER) | payer OTHER ==
[2021-12-16 17:09] VITALS: BMI 23.2
[2021-12-17 01:59] VITALS: BP 137/76; PULSE 103; TEMP 98.6
== END 2021-12-17 04:43 | disposition home or self-care (01) ==
LOC: JER 16:47
DX: M54.2 Cervicalgia (principal)
CPT/HCPCS: 70450-TC; 71046-TC-FY; 72125-TC; 73030-TC-LT-FY; 99285-25

== ENCOUNTER 2022-11-22 10:26 | Inpatient (IN) | payer OTHER ==
[2022-11-22] MEDS ORDERED: CEFTRIAXONE 1 GM in DEXTROSE 5%-WATER - 100 ML IVPB ONE (11:55)
[2022-11-22] MEDS ORDERED: SODIUM CHLORIDE 1,000 ML IV STA (11:55)
[2022-11-22] MEDS ORDERED: AZITHROMYCIN IVPB 500 MG in DEXTROSE 5%-WATER - 250 ML IVPB ONE (11:55)
[2022-11-22] MEDS ORDERED: AZITHROMYCIN 500 MG VIAL IVPB ONE (12:20)
[2022-11-22] MEDS ORDERED: cefTRIAXone SODIUM 1 GM VIAL ONE (12:20)
[2022-11-22 13:26] LABS: HEMATOCRIT 33.7 % (32.4-45.2); HEMOGLOBIN 11.2 G/dL (10.7-15.3); MCH 37.7 pg (25.7-33.7); MCHC 33.2 g/dl (32.0-36.0); MEAN CELL VOLUME 113.4 fl (80-96); MEAN PLT VOLUME 11.4 fl (7.5-11.1); PLATELET COUNT 173.2 10^3/uL (134-434); RBC 2.97 10^6/uL (3.60-5.2); RDW 14.7 % (11.6-15.6); WHITE BLOOD COUNT 7.2 10^3/uL (4.0-10.8)
[2022-11-22 13:31] LABS: PLATELET ESTIMATE ADEQUATE
[2022-11-22 13:33] LABS: ALBUMIN 3.8 g/dl (3.4-5.0); BILIRUBIN,TOTAL 0.2 mg/dl (0.2-1); CALCIUM 9.5 mg/dl (8.5-10); CREATININE 1.3 mg/dl (0.55-1.3); TOT PROT 7.6 g/dl (6.4-8.2)
[2022-11-22 13:49] LABS: EPITHELIAL CELLS FEW /hpf
[2022-11-22] MEDS ORDERED: METOCLOPRAMIDE HCL INJECTION 10 MG/2 ML VIAL IVPB ONE (14:53)
[2022-11-22] MEDS ORDERED: METOCLOPRAMIDE HCL INJECTION 10 MG/2 ML VIAL ONE (15:08)
[2022-11-22 16:33] LABS: LACTIC ACID 3.6 mmol/L (0.4-2.0)
[2022-11-22] MEDS ORDERED: DEXTROSE 5%-NORMAL SALINE 1,000 ML IV SCH (17:15)
[2022-11-22 17:41] VITALS: BMI 18.2
[2022-11-22] MEDS ORDERED: ONDANSETRON 4 MG/2 ML VIAL IVPUSH PRN (18:53)
[2022-11-23] MEDS: LEVOTHYROXINE SODIUM 100 MCG 5 ML VIAL IVPUSH SCH (07:00)
[2022-11-23 08:29] LABS: CALCIUM 8.1 mg/dl (8.5-10); MAGNESIUM 1.6 mg/dL (1.8-2.4)
[2022-11-23] MEDS ORDERED: MAGNESIUM SULF 50% (8.12 MEQ/2 ML-1 GM VIAL) IVPB ONE (08:42)
[2022-11-23] MEDS ORDERED: MAGNESIUM 1GM/D5W - 1 GM/100 ML IVPB IVPB ONE (09:00)
[2022-11-23] MEDS ORDERED: AMPICILLIN NA/SULBACTAM NA 3 GM in SODIUM CHLORIDE 100 ML IVPB SCH (09:00)
[2022-11-23 09:25] LABS: BASO % 0.3 % (0-2.0); EOS % 2.1 % (0-4.5); HEMATOCRIT 25.2 % (32.4-45.2); HEMOGLOBIN 8.5 GM/dL (10.7-15.3); LYMPH % 23.8 % (8-40); MCH 36.2 pg (25.7-33.7); MCHC 33.8 g/dl (32.0-36.0); MEAN CELL VOLUME 107.1 fl (80-96); MONO % 10.5 % (3.8-10.2); NEUT % 63.3 % (42.8-82.8); PLATELET COUNT 138 10^3/uL (134-434); RBC 2.35 M/mm3 (3.60-5.2); RDW 15.6 % (11.6-15.6); WHITE BLOOD COUNT 5.7 K/mm3 (4.0-10.0)
[2022-11-23 09:53] LABS: ANISOCYTOSIS 2+; MACROCYTOSIS 2+
[2022-11-23] MEDS ORDERED: AZITHROMYCIN IVPB 500 MG/250 ML BAG IVPB SCH (10:00)
[2022-11-23] MEDS ORDERED: MULTIVIT INJ. ADULT COMBO WITH VIT K 1 COMBO 10 ML VIAL IV SCH (10:00)
[2022-11-23] MEDS ORDERED: SODIUM PHOSPHATE - 15 MM in SODIUM CHLORIDE 250 ML IVPB ONE (10:00)
[2022-11-23] MEDS: MULTIVIT-MINERALS ORAL LIQUID PO SCH (10:24)
[2022-11-23] MEDS: ENOXAPARIN NA (PORCINE) 30 MG/0.3 ML DISP.SYRIN SQ SCH (10:25)
[2022-11-23] MEDS ORDERED: AMPICILLIN NA/SULBACTAM NA 1.5 GM in SODIUM CHLORIDE 100 ML IVPB SCH (11:15)
[2022-11-23] MEDS ORDERED: SODIUM PHOSPHATE IVPB ONE ×2 (12:00→14:00)
[2022-11-23] MEDS ORDERED: SODIUM CHLORIDE IVPB ONE ×2 (12:00→14:00)
[2022-11-23] MEDS: AZITHROMYCIN IVPB 250 MG in DEXTROSE 5%-WATER - 250 ML IVPB SCH (12:10)
[2022-11-23] MEDS: AMPICILLIN NA/SULBACTAM NA 3 GM in SODIUM CHLORIDE 100 ML IVPB SCH (12:11)
[2022-11-23] MEDS: ARTIFICIAL TEARS (POLYVINYL ALCOHOL) OPTH DROPS OU SCH (21:27)
[2022-11-24] MEDS: LEVOTHYROXINE SODIUM 100 MCG 5 ML VIAL IVPUSH SCH (06:34)
[2022-11-24 07:13] LABS: BASO % 0.4 % (0-2.0); EOS % 0.7 % (0-4.5); HEMOGLOBIN 8.5 GM/dL (10.7-15.3); LYMPH % 18.1 % (8-40); MCH 37.6 pg (25.7-33.7); MCHC 35.3 g/dl (32.0-36.0); MEAN CELL VOLUME 106.5 fl (80-96); MEAN PLT VOLUME 11.1 fl (7.5-11.1); MONO % 7.6 % (3.8-10.2); NEUT % 73.2 % (42.8-82.8); PLATELET COUNT 130 10^3/uL (134-434); RBC 2.25 M/mm3 (3.60-5.2); RDW 15.4 % (11.6-15.6); WHITE BLOOD COUNT 7.4 K/mm3 (4.0-10.0)
[2022-11-24 07:32] LABS: BLOOD UREA NITROGEN 14.3 mg/dL (7-18); CALCIUM 7.9 mg/dL (8.5-10.1); MAGNESIUM 2.2 mg/dL (1.8-2.4)
[2022-11-24 07:35] LABS: PHOSPHOROUS 2.5 mg/dL (2.5-4.9)
[2022-11-24] MEDS: ARTIFICIAL TEARS (POLYVINYL ALCOHOL) OPTH DROPS OU SCH ×2 (10:19→21:08)
[2022-11-24] MEDS: AZITHROMYCIN IVPB 250 MG in DEXTROSE 5%-WATER - 250 ML IVPB SCH (11:49)
[2022-11-24] MEDS: ENOXAPARIN NA (PORCINE) 30 MG/0.3 ML DISP.SYRIN SQ SCH (11:49)
[2022-11-24] MEDS: MULTIVIT-MINERALS ORAL LIQUID PO SCH (11:50)
[2022-11-24] MEDS: AMPICILLIN NA/SULBACTAM NA 3 GM in SODIUM CHLORIDE 100 ML IVPB SCH ×3 (12:37→23:33)
[2022-11-24] MEDS ORDERED: AMINO ACIDS 4.25%/D5W 1,000 ML IV SCH ×2 (14:45)
[2022-11-24 23:31] VITALS: RESP 18
[2022-11-25] MEDS: LEVOTHYROXINE SODIUM 100 MCG 5 ML VIAL IVPUSH SCH ×2 (06:35→06:40)
[2022-11-25 07:03] LABS: BASO % 0.7 % (0-2.0); EOS % 2.7 % (0-4.5); HEMOGLOBIN 8.9 GM/dL (10.7-15.3); MCH 36.6 pg (25.7-33.7); MCHC 34.1 g/dl (32.0-36.0); MEAN CELL VOLUME 107.5 fl (80-96); MEAN PLT VOLUME 11.8 fl (7.5-11.1); MONO % 11.4 % (3.8-10.2); NEUT % 46.2 % (42.8-82.8); PLATELET COUNT 145 10^3/uL (134-434); RBC 2.42 M/mm3 (3.60-5.2); RDW 15.8 % (11.6-15.6)
[2022-11-25 07:17] LABS: POTASSIUM 5.2 mmol/L (3.5-5.1)
[2022-11-25 07:23] LABS: PHOSPHOROUS 1.6 mg/dL (2.5-4.9)
[2022-11-25] MEDS ORDERED: SODIUM PHOSPHATE - 30 MM in DEXTROSE 5%-WATER - 500 ML IVPB ONE (09:00)
[2022-11-25] MEDS ORDERED: ACETAMINOPHEN 1000 MG/100 ML BAG IVPB PRN (10:03)
[2022-11-25] MEDS ORDERED: MULTIVIT INJ. ADULT COMBO WITH VIT K 1 COMBO 10 ML VIAL IV SCH (10:15)
[2022-11-25] MEDS ORDERED: AMINO ACIDS 4.25%/D5W 1,000 ML IV SCH (10:15)
[2022-11-25] MEDS: ENOXAPARIN NA (PORCINE) 30 MG/0.3 ML DISP.SYRIN SQ SCH (10:19)
[2022-11-25] MEDS: ARTIFICIAL TEARS (POLYVINYL ALCOHOL) OPTH DROPS OU SCH (10:19)
[2022-11-25] MEDS: MULTIVIT-MINERALS ORAL LIQUID PO SCH (10:24)
[2022-11-25] MEDS: AMPICILLIN NA/SULBACTAM NA 3 GM in SODIUM CHLORIDE 100 ML IVPB SCH (12:04)
[2022-11-25 12:05] VITALS: TEMP 97.2
[2022-11-25] MEDS: AZITHROMYCIN IVPB 250 MG in DEXTROSE 5%-WATER - 250 ML IVPB SCH (13:28)
[2022-11-25 14:50] VITALS: PULSE 78
[2022-11-25 15:01] VITALS: BP 133/58
[2022-11-26] MEDS ORDERED: MULTIVIT INJ. ADULT COMBO WITH VIT K 1 COMBO 10 ML VIAL IV SCH (10:00)
== END 2022-11-25 16:25 | disposition home or self-care (01) | DRG 178 ==
LOC: FER 10:26 → FM/S 14:52 → UNDOADMIN 14:52 → FM/S 11-23 15:23 → J7W 11-24 01:16
PROVIDERS: ADMIT Internal Medicine; ATTEND Internal Medicine
DX: J69.0 Pneumonitis due to inhalation of food and vomit (principal); E44.0 Moderate protein-calorie malnutrition; E03.9 Hypothyroidism, unspecified; E34.328 Other genetic causes of short stature; Z86.79 Personal history of other diseases of the circulatory system
CPT/HCPCS: 0241U-QW; 36415; 71045-TC-FY; 74230-TC-FY; 80048; 80053; 81003; 81015; 82607; 82746; 83605; 83735; 84100; 85025; 85027; 87040; 87086; 87186; 92611-GN; 93005; 94761; 97116-GP; 97162-GP; 99285-25

== ENCOUNTER 2023-07-29 18:09 | Inpatient (IN) | payer OTHER ==
[2023-07-29 19:21] LABS: EPITHELIAL CELLS 0-5 /hpf
[2023-07-29] MEDS ORDERED: CIPROFLOXACIN 250 MG TABLET (RESTRICTED TO ID) PO ONE ×2 (19:36→19:41)
[2023-07-29 20:48] LABS: HEMATOCRIT 34.2 % (32.4-45.2); HEMOGLOBIN 11.4 G/dL (10.7-15.3); MCH 34.8 pg (25.7-33.7); MCHC 33.2 g/dl (32.0-36.0); MEAN CELL VOLUME 104.7 fl (80-96); MEAN PLT VOLUME 9.7 fl (7.5-11.1); RBC 3.27 10^6/uL (3.60-5.2); RDW 15.8 % (11.6-15.6); WHITE BLOOD COUNT 16.2 10^3/uL (4.0-10.8)
[2023-07-29] MEDS ORDERED: CEFTRIAXONE 500 MG in DEXTROSE 5%-WATER - 50 ML IVPB ONE ×2 (20:57→22:32)
[2023-07-29 21:18] LABS: ALBUMIN 3.5 g/dl (3.4-5.0); BILIRUBIN,TOTAL 0.4 mg/dl (0.2-1); CALCIUM 9.4 mg/dl (8.5-10.1); CREATININE 1.1 mg/dl (0.6-1.3); POTASSIUM 4.1 mmol/L (3.5-5.1); TOT PROT 6.7 g/dl (6.4-8.2)
[2023-07-29 21:48] LABS: ANISOCYTOSIS 2+; MACROCYTOSIS 2+
[2023-07-29 21:49] LABS: TARGET CELLS 1+
[2023-07-29] MEDS ORDERED: SODIUM CHLORIDE 0.9% 500 ML INFUS.BAG IV ONE (22:05)
[2023-07-29 22:50] VITALS: BMI 27.5
[2023-07-29] MEDS: DEXTROSE 5%-NORMAL SALINE 1,000 ML IV SCH (23:01)
[2023-07-30 10:05] LABS: CALCIUM 8.4 mg/dl (8.5-10.1); CREATININE 1.1 mg/dl (0.6-1.3); MAGNESIUM 1.6 mg/dL (1.8-2.4); PHOSPHOROUS 2.5 (2.5-4.9); POTASSIUM 3.9 mmol/L (3.5-5.1)
[2023-07-30 11:09] LABS: BASO % 0.3 % (0-2.0); EOS % 0.4 % (0-4.5); HEMATOCRIT 28.2 % (32.4-45.2); HEMOGLOBIN 9.3 GM/dL (10.7-15.3); LYMPH % 13.7 % (8-40); MCH 34.2 pg (25.7-33.7); MEAN CELL VOLUME 103.4 fl (80-96); MONO % 6.3 % (3.8-10.2); NEUT % 79.3 % (42.8-82.8); PLATELET COUNT 186 10^3/uL (134-434); RBC 2.72 M/mm3 (3.60-5.2); RDW 16.2 % (11.6-15.6); WHITE BLOOD COUNT 14.6 K/mm3 (4.0-10.0)
[2023-07-30] MEDS: CEFTRIAXONE 1 GM in DEXTROSE 5%-WATER - 50 ML IVPB SCH (21:51)
[2023-07-30] MEDS: DEXTROSE 5%-NORMAL SALINE 1,000 ML IV SCH (21:52)
[2023-07-31 08:48] LABS: ALBUMIN 2.9 g/dl (3.4-5.0); BILIRUBIN,TOTAL 0.2 mg/dl (0.2-1); CALCIUM 8.6 mg/dl (8.5-10.1); POTASSIUM 3.9 mmol/L (3.5-5.1); TOT PROT 5.6 g/dl (6.4-8.2)
[2023-07-31 09:29] LABS: BASO % 0.9 % (0-2.0); EOS % 2.9 % (0-4.5); HEMATOCRIT 29.5 % (32.4-45.2); HEMOGLOBIN 9.9 GM/dL (10.7-15.3); LYMPH % 24.7 % (8-40); MCH 34.4 pg (25.7-33.7); MCHC 33.5 g/dl (32.0-36.0); MEAN CELL VOLUME 102.7 fl (80-96); MEAN PLT VOLUME 10.1 fl (7.5-11.1); NEUT % 59.5 % (42.8-82.8); PLATELET COUNT 196 10^3/uL (134-434); RBC 2.87 M/mm3 (3.60-5.2); RDW 16.5 % (11.6-15.6); WHITE BLOOD COUNT 8.2 K/mm3 (4.0-10.0)
[2023-07-31] MEDS ORDERED: CRANBERRY FRUIT 400 MG PO SCH (10:00)
[2023-07-31] MEDS: HEPARIN NA (PORCINE) 5,000 UNITS/ML 1ML VIAL SQ SCH ×2 (11:14→21:23)
[2023-07-31] MEDS: LACTOBACILLUS ACIDOPHILUS 1 TABLET PO SCH (21:23)
[2023-07-31] MEDS: CEFTRIAXONE 1 GM in DEXTROSE 5%-WATER - 50 ML IVPB SCH (21:23)
[2023-07-31] MEDS: DEXTROSE 5%-NORMAL SALINE 1,000 ML IV SCH (21:33)
[2023-07-31] MEDS ORDERED: BIFIDOBACTERIUM INFANTIS PO SCH (22:00)
[2023-08-01] MEDS: HEPARIN NA (PORCINE) 5,000 UNITS/ML 1ML VIAL SQ SCH ×2 (10:33→21:43)
[2023-08-01 13:31] LABS: HEMOGLOBIN 10.9 G/dL (10.7-15.3); MCH 34.3 pg (25.7-33.7); MCHC 32.9 g/dl (32.0-36.0); MEAN PLT VOLUME 9.7 fl (7.5-11.1); PLATELET COUNT 214.9 10^3/uL (134-434); RBC 3.17 10^6/uL (3.60-5.2); WHITE BLOOD COUNT 7.8 10^3/uL (4.0-10.8)
[2023-08-01 13:41] LABS: CALCIUM 8.4 mg/dl (8.5-10.1); CREATININE 0.9 mg/dl (0.6-1.3); MAGNESIUM 1.5 mg/dL (1.8-2.4); PHOSPHOROUS 1.9 (2.5-4.9); POTASSIUM 3.6 mmol/L (3.5-5.1)
[2023-08-01] MEDS ORDERED: MAGNESIUM OXIDE 400 MG TABLET (FP) PO ONE (14:37)
[2023-08-01] MEDS ORDERED: NAPH,MB-DB/K PH,MBDB POWDER PACKET PO ONE (15:00)
[2023-08-01] MEDS ORDERED: AMOXICILLIN ORAL SUSPENSION - 250 MG/5 ML PO ONE (15:00)
[2023-08-01] MEDS ORDERED: REFRIGERATED ANITBIOTICS ONE (16:11)
[2023-08-01] MEDS: LACTOBACILLUS ACIDOPHILUS 1 TABLET PO SCH (21:43)
[2023-08-02 00:39] VITALS: RESP 18
[2023-08-02] MEDS ORDERED: AMOXICILLIN ORAL SUSPENSION - 250 MG/5 ML PO SCH (08:00)
[2023-08-02] MEDS: HEPARIN NA (PORCINE) 5,000 UNITS/ML 1ML VIAL SQ SCH (09:59)
[2023-08-02 10:28] VITALS: BP 127/62; PULSE 61; TEMP 98.6
== END 2023-08-02 12:45 | DRG 690 ==
LOC: FER 18:09 → FM/S 22:09 → OBSVTOIN 07-31 12:14
PROVIDERS: ADMIT Internal Medicine; ATTEND Internal Medicine
DX: N39.0 Urinary tract infection, site not specified (principal); R65.10 Systemic inflammatory response syndrome (SIRS) of non-infectious origin without acute organ dysfunction; E03.9 Hypothyroidism, unspecified; M81.0 Age-related osteoporosis without current pathological fracture; I34.1 Nonrheumatic mitral (valve) prolapse; E34.328 Other genetic causes of short stature; F79 Unspecified intellectual disabilities; G40.909 Epilepsy, unspecified, not intractable, without status epilepticus; K59.09 Other constipation; K21.9 Gastro-esophageal reflux disease without esophagitis; B96.20 Unspecified Escherichia coli [E. coli] as the cause of diseases classified elsewhere
CPT/HCPCS: 0241U-QW; 36415; 71045-TC-FY; 80048; 80053; 81003; 81015; 82607; 82728; 82746; 83540; 83550; 83735; 84100; 84439; 84443; 85025; 85027; 87086; 87186; 93005; 99285-25; G0378; J1644

== ENCOUNTER 2023-10-12 20:44 | Inpatient (IN) | payer OTHER ==
[2023-10-12 22:13] LABS: HEMATOCRIT 37.4 % (32.4-45.2); MCH 33.9 pg (25.7-33.7); MEAN CELL VOLUME 105.9 fl (80-96); MEAN PLT VOLUME 9.6 fl (7.5-11.1); PLATELET COUNT 285.2 10^3/uL (134-434); RBC 3.53 10^6/uL (3.60-5.2); RDW 15.3 % (11.6-15.6); WHITE BLOOD COUNT 9.3 10^3/uL (4.0-10.8)
[2023-10-12 22:27] LABS: ALBUMIN 3.8 g/dl (3.4-5.0); BILIRUBIN,TOTAL 0.2 mg/dl (0.2-1); CALCIUM 9.8 mg/dl (8.5-10.1); CREATININE 1.4 mg/dl (0.6-1.3); MAGNESIUM 1.8 mg/dL (1.8-2.4); PHOSPHOROUS 4.5 (2.5-4.9); POTASSIUM 4.9 mmol/L (3.5-5.1); TOT PROT 6.7 g/dl (6.4-8.2)
[2023-10-12] MEDS ORDERED: PIPERACILLIN/TAZOBACTAM 4.5 GM VIAL IVPB ONE (23:04)
[2023-10-12] MEDS: PIPERACILLIN/TAZOB 2.25 GM 2.25 GM in DEXTROSE 5%-WATER - 50 ML IVPB ONE (23:34)
[2023-10-13 01:47] VITALS: BMI 32.3
[2023-10-13] MEDS: SODIUM CHLORIDE 0.45% 1,000 ML IV SCH (03:12)
[2023-10-13 08:44] LABS: CALCIUM 8.7 mg/dl (8.5-10.1); CREATININE 1.2 mg/dl (0.6-1.3); MAGNESIUM 1.7 mg/dL (1.8-2.4); POTASSIUM 4.2 mmol/L (3.5-5.1)
[2023-10-13] MEDS ORDERED: PIPERACILLIN/TAZOB 2.25 GM 2.25 GM in DEXTROSE 5%-WATER - 50 ML IVPB SCH (10:00)
[2023-10-13 12:41] LABS: BASO % 0.4 % (0-2.0); EOS % 2.6 % (0-4.5); HEMATOCRIT 30.1 % (32.4-45.2); HEMOGLOBIN 9.9 GM/dL (10.7-15.3); MCH 33.5 pg (25.7-33.7); MCHC 32.9 g/dl (32.0-36.0); MEAN CELL VOLUME 101.8 fl (80-96); MEAN PLT VOLUME 9.5 fl (7.5-11.1); MONO % 10.7 % (3.8-10.2); NEUT % 58.3 % (42.8-82.8); PLATELET COUNT 245 10^3/uL (134-434); RBC 2.96 M/mm3 (3.60-5.2); WHITE BLOOD COUNT 8.3 K/mm3 (4.0-10.0)
[2023-10-13] MEDS: DEXTROSE 5%-0.45% SALINE 1,000 ML IV SCH (14:00)
[2023-10-13] MEDS ORDERED: HEPARIN NA (PORCINE) 5,000 UNITS/ML 1ML VIAL SQ SCH (22:00)
[2023-10-13] MEDS: MAGNESIUM OXIDE 400 MG TABLET (FP) PO ONE (22:24)
[2023-10-14] MEDS: LACTULOSE 20 GM/30 ML UDC (FOR ORAL USE ONLY) PO SCH (09:56)
[2023-10-14] MEDS ORDERED: PIPERACILLIN/TAZOB 2.25 GM 2.25 GM in DEXTROSE 5%-WATER - 50 ML IVPB SCH (10:00)
[2023-10-14 10:05] LABS: HEMATOCRIT 35.4 % (32.4-45.2); HEMOGLOBIN 11.2 G/dL (10.7-15.3); MCH 33.5 pg (25.7-33.7); MCHC 31.6 g/dl (32.0-36.0); MEAN PLT VOLUME 9.6 fl (7.5-11.1); PLATELET COUNT 278.8 10^3/uL (134-434); RBC 3.34 10^6/uL (3.60-5.2); WHITE BLOOD COUNT 6.2 10^3/uL (4.0-10.8)
[2023-10-14 10:28] LABS: CALCIUM 9.1 mg/dl (8.5-10.1); PHOSPHOROUS 3.1 (2.5-4.9); POTASSIUM 4.4 mmol/L (3.5-5.1)
[2023-10-14 22:52] VITALS: TEMP 97.4
[2023-10-15 09:10] LABS: HEMATOCRIT 35.6 % (32.4-45.2); HEMOGLOBIN 11.3 G/dL (10.7-15.3); MCH 33.7 pg (25.7-33.7); MCHC 31.8 g/dl (32.0-36.0); MEAN CELL VOLUME 105.9 fl (80-96); MEAN PLT VOLUME 9.8 fl (7.5-11.1); PLATELET COUNT 297.1 10^3/uL (134-434); RBC 3.36 10^6/uL (3.60-5.2); RDW 14.8 % (11.6-15.6); WHITE BLOOD COUNT 6.5 10^3/uL (4.0-10.8)
[2023-10-15 09:44] LABS: CALCIUM 9.2 mg/dl (8.5-10.1); CREATININE 1.1 mg/dl (0.6-1.3); POTASSIUM 4.7 mmol/L (3.5-5.1)
[2023-10-15 10:23] VITALS: BP 101/64; PULSE 63; RESP 16
[2023-10-15] MEDS: ENOXAPARIN NA (PORCINE) 30 MG/0.3 ML DISP.SYRIN SQ SCH (11:13)
== END 2023-10-15 13:55 | disposition home or self-care (01) | DRG 392 ==
LOC: FER 20:44 → FM/S 10-13 01:04
PROVIDERS: ADMIT Internal Medicine; ATTEND Internal Medicine
DX: K22.4 Dyskinesia of esophagus (principal); N17.9 Acute kidney failure, unspecified; E03.9 Hypothyroidism, unspecified; E34.328 Other genetic causes of short stature; M81.0 Age-related osteoporosis without current pathological fracture; I34.1 Nonrheumatic mitral (valve) prolapse; K57.90 Diverticulosis of intestine, part unspecified, without perforation or abscess without bleeding; K59.00 Constipation, unspecified; R13.10 Dysphagia, unspecified; F79 Unspecified intellectual disabilities
CPT/HCPCS: 36415; 71045-TC-FY; 80048; 80053; 82550; 82607; 82746; 83735; 84100; 84439; 84443; 84484; 85025; 85027; 87040; 93005; 97116-GP; 97162-GP; 99285-25

== ENCOUNTER 2023-12-14 18:44 | Emergency (ER) | payer OTHER ==
[2023-12-14 19:00] VITALS: RESP 20; BMI 17.6
[2023-12-14 20:03] LABS: HEMATOCRIT 36.7 % (32.4-45.2); HEMOGLOBIN 11.7 G/dL (10.7-15.3); MCH 33.1 pg (25.7-33.7); MCHC 31.9 g/dl (32.0-36.0); MEAN CELL VOLUME 103.7 fl (80-96); MEAN PLT VOLUME 9.5 fl (7.5-11.1); PLATELET COUNT 193.6 10^3/uL (134-434); RBC 3.54 10^6/uL (3.60-5.2); RDW 14.9 % (11.6-15.6)
[2023-12-14 20:15] LABS: ANISOCYTOSIS 1+; MACROCYTOSIS 1+; PLATELET ESTIMATE ADEQUATE
[2023-12-14 20:26] LABS: BILIRUBIN,TOTAL 0.2 mg/dl (0.2-1); CALCIUM 10.2 mg/dl (8.5-10.1); CREATININE 1.1 mg/dl (0.6-1.3); POTASSIUM 4.4 mmol/L (3.5-5.1)
[2023-12-14 22:16] VITALS: BP 159/91; PULSE 102; TEMP 99.9
[2023-12-14] MEDS: ACETAMINOPHEN 160 MG/5 ML *Children Solution PO ONE (22:36)
== END 2023-12-14 22:51 | disposition home or self-care (01) ==
LOC: FER 18:44
DX: J40 Bronchitis, not specified as acute or chronic (principal); R50.9 Fever, unspecified; R05.9 Cough, unspecified; U07.1 COVID-19
CPT/HCPCS: 0241U-QW; 36415; 71045-TC-FY; 80053; 81003; 85027; 87086; 99284-25

== ENCOUNTER 2023-12-15 13:58 | Inpatient (IN) | payer OTHER ==
[2023-12-15] MEDS: SODIUM CHLORIDE 0.9% 500 ML INFUS.BAG IV ONE (15:20)
[2023-12-15 15:53] LABS: HEMATOCRIT 35.4 % (32.4-45.2); HEMOGLOBIN 11.4 G/dL (10.7-15.3); MCH 33.2 pg (25.7-33.7); MCHC 32.1 g/dl (32.0-36.0); MEAN CELL VOLUME 103.4 fl (80-96); MEAN PLT VOLUME 10.4 fl (7.5-11.1); PLATELET COUNT 192.7 10^3/uL (134-434); RBC 3.42 10^6/uL (3.60-5.2); RDW 15.1 % (11.6-15.6); WHITE BLOOD COUNT 7.7 10^3/uL (4.0-10.8)
[2023-12-15 16:20] LABS: INR 0.99 (0.83-1.09); PROTHROMBIN TIME (PATIENT) 11.3 SEC (9.7-13.0)
[2023-12-15 16:22] LABS: ALBUMIN 3.8 g/dl (3.4-5.0); BILIRUBIN,TOTAL 0.2 mg/dl (0.2-1); CALCIUM 9.8 mg/dl (8.5-10.1); CREATININE 1.2 mg/dl (0.6-1.3); MAGNESIUM 1.6 mg/dL (1.8-2.4); POTASSIUM 4.2 mmol/L (3.5-5.1); TOT PROT 6.7 g/dl (6.4-8.2)
[2023-12-15 16:23] LABS: ACTIVATED PTT 36.1 SECONDS (25.2-36.5)
[2023-12-15 16:45] LABS: VENOUS BASE EXCESS 2.7 mmol/L (-2-2); VENOUS O2 SATURATION 93.9 % (70-80); VENOUS PH 7.418 (7.310-7.410)
[2023-12-15 17:58] LABS: ANISOCYTOSIS 1+; MACROCYTOSIS 1+
[2023-12-15 17:59] LABS: PLATELET ESTIMATE ADEQUATE
[2023-12-15] MEDS ORDERED: REMDESIVIR 200 MG in SODIUM CHLORIDE 250 ML IVPB ONE (18:04)
[2023-12-15] MEDS: DEXAMETHASONE SOD PHOSPHATE 10 MG/1 ML VIAL IVPUSH SCH (18:55)
[2023-12-15] MEDS: REMDESIVIR 200 MG in SODIUM CHLORIDE 250 ML IVPB ONE (21:48)
[2023-12-15] MEDS: HEPARIN NA (PORCINE) 5,000 UNITS/ML 1ML VIAL SQ SCH (21:49)
[2023-12-16 08:42] LABS: HEMATOCRIT 33.1 % (32.4-45.2); HEMOGLOBIN 10.3 G/dL (10.7-15.3); MCH 32.2 pg (25.7-33.7); MCHC 31.2 g/dl (32.0-36.0); MEAN PLT VOLUME 11.1 fl (7.5-11.1); PLATELET COUNT 174.4 10^3/uL (134-434); RBC 3.21 10^6/uL (3.60-5.2); RDW 15.7 % (11.6-15.6); WHITE BLOOD COUNT 6.5 10^3/uL (4.0-10.8)
[2023-12-16 09:00] LABS: ANION GAP 10 mmol/L (4-13); CALCIUM 8.9 mg/dl (8.5-10.1); CHLORIDE 110 mmol/L (98-107); CO2 23 mmol/L (21-32); CREATININE 1.1 mg/dl (0.6-1.3); GLUCOSE,RANDOM 127 mg/dl (74-106); MAGNESIUM 1.7 mg/dL (1.8-2.4); PHOSPHOROUS 3.6 (2.5-4.9); SODIUM 143 mmol/L (136-145)
[2023-12-16] MEDS: MAGNESIUM SULF 50% (8.12 MEQ/2 ML-1 GM VIAL) IVPB ONE (11:36)
[2023-12-16] MEDS: REMDESIVIR 100 MG in SODIUM CHLORIDE 250 ML IVPB SCH (21:23)
[2023-12-18 16:13] VITALS: BMI 18.6
[2023-12-19 09:08] LABS: BASO % 0.2 % (0-2.0); HEMATOCRIT 32.4 % (32.4-45.2); HEMOGLOBIN 11.1 GM/dL (10.7-15.3); LYMPH % 14.6 % (8-40); MCH 34.1 pg (25.7-33.7); MCHC 34.2 g/dl (32.0-36.0); MEAN CELL VOLUME 99.8 fl (80-96); MONO % 8.5 % (3.8-10.2); NEUT % 76.7 % (42.8-82.8); PLATELET COUNT 189 10^3/uL (134-434); RBC 3.25 M/mm3 (3.60-5.2); RDW 15.5 % (11.6-15.6); WHITE BLOOD COUNT 10.2 K/mm3 (4.0-10.0)
[2023-12-19 09:24] LABS: ALBUMIN 3.3 g/dl (3.4-5.0); ALK PHOS 74 U/L (45-117); ANION GAP 9 mmol/L (4-13); BILIRUBIN,TOTAL 0.2 mg/dl (0.2-1); CALCIUM 8.8 mg/dl (8.5-10.1); CHLORIDE 111 mmol/L (98-107); CHOLESTEROL 141 mg/dL (50-200); CO2 26 mmol/L (21-32); CREATININE 0.9 mg/dl (0.6-1.3); GLUCOSE,RANDOM 131 mg/dl (74-106); HDL CHOLESTEROL 69 mg/dL (40-60); LDL CHOLESTEROL (ONLY DFH) 64 mg/dL (5-100); POTASSIUM 4.1 mmol/L (3.5-5.1); SGOT/AST 37 U/L (15-37); SGPT/ALT 50 U/L (7-52); SODIUM 146 mmol/L (136-145); TOT PROT 6.2 g/dl (6.4-8.2)
[2023-12-19] MEDS: DEXTROSE 5%-0.45% SALINE 1,000 ML IV SCH (11:47)
[2023-12-19] MEDS: ALBUTEROL SO4 2.5/IPRATROPIUM 0.5 INH SOL 3 ML VIAL.NEB. NEB SCH (14:23)
[2023-12-20 08:26] LABS: HEMATOCRIT 30.1 % (32.4-45.2); HEMOGLOBIN 9.5 G/dL (10.7-15.3); MCH 32.4 pg (25.7-33.7); MCHC 31.5 g/dl (32.0-36.0); MEAN CELL VOLUME 102.7 fl (80-96); MEAN PLT VOLUME 10.8 fl (7.5-11.1); PLATELET COUNT 175.9 10^3/uL (134-434); RBC 2.93 10^6/uL (3.60-5.2); RDW 16.1 % (11.6-15.6); WHITE BLOOD COUNT 9.9 10^3/uL (4.0-10.8)
[2023-12-20 08:31] LABS: ALBUMIN 2.9 g/dl (3.4-5.0); ALK PHOS 73 U/L (45-117); ANION GAP 5 mmol/L (4-13); BILIRUBIN,TOTAL 0.1 mg/dl (0.2-1); CALCIUM 8.5 mg/dl (8.5-10.1); CHLORIDE 109 mmol/L (98-107); CO2 27 mmol/L (21-32); CREATININE 1.1 mg/dl (0.6-1.3); GLUCOSE,RANDOM 273 mg/dl (74-106); PHOSPHOROUS 1.8 (2.5-4.9); POTASSIUM 3.8 mmol/L (3.5-5.1); SGOT/AST 50 U/L (15-37); SGPT/ALT 70 U/L (7-52); SODIUM 141 mmol/L (136-145); TOT PROT 5.4 g/dl (6.4-8.2)
[2023-12-20] MEDS: NAPH,MB-DB/K PH,MBDB POWDER PACKET PO ONE (10:18)
[2023-12-21 02:10] VITALS: RESP 18
[2023-12-21 06:48] VITALS: BP 107/55; PULSE 56; TEMP 97.5
== END 2023-12-21 10:00 | disposition home or self-care (01) | DRG 178 ==
LOC: FER 13:58 → FM/S 18:04 → OBSVTOIN 12-19 09:20
PROVIDERS: ADMIT Internal Medicine; ATTEND Internal Medicine
DX: U07.1 COVID-19 (principal); E44.0 Moderate protein-calorie malnutrition; Z68.1 Body mass index [BMI] 19.9 or less, adult; E03.9 Hypothyroidism, unspecified; M81.0 Age-related osteoporosis without current pathological fracture; E34.328 Other genetic causes of short stature; E83.42 Hypomagnesemia; K22.4 Dyskinesia of esophagus; R13.10 Dysphagia, unspecified; G40.909 Epilepsy, unspecified, not intractable, without status epilepticus; K21.9 Gastro-esophageal reflux disease without esophagitis; K59.09 Other constipation; D64.9 Anemia, unspecified; F71 Moderate intellectual disabilities
CPT/HCPCS: 36415; 71045-TC-FY; 80048; 80053; 80061; 82550; 82553; 82803; 83036; 83605; 83735; 83880; 84100; 84439; 84443; 84484; 85025; 85027; 85610; 85730; 86850; 86900; 86901; 87040; 93005; 93306-TC; 94640; 97116-GP; 97162-GP; 99285-25; G0378; J0248; J1100; J1644

== ENCOUNTER 2023-12-29 09:33 | Emergency (ER) | payer OTHER ==
[2023-12-29 09:41] VITALS: BP 159/88; PULSE 65; RESP 19; TEMP 97.8; BMI 19.0
== END 2023-12-29 10:46 | disposition home or self-care (01) ==
LOC: FER 09:33
DX: Z00.00 Encounter for general adult medical examination without abnormal findings (principal)
CPT/HCPCS: 93005; 99283-25

== ENCOUNTER 2024-01-31 09:39 | Emergency (ER) | payer OTHER ==
[2024-01-31 09:47] VITALS: BP 124/74; PULSE 82; RESP 18; TEMP 97.6; BMI 15.7
[2024-01-31 11:22] LABS: THROAT:GRP A STREP NOT DETECTED (NOTDETECTED)
[2024-01-31 12:14] LABS: BASO % 0.3 % (0-2.0); EOS % 2.2 % (0-4.5); HEMOGLOBIN 10.6 GM/dL (10.7-15.3); LYMPH % 28.1 % (8-40); MCH 33.1 pg (25.7-33.7); MCHC 33.1 g/dl (32.0-36.0); MEAN CELL VOLUME 100.1 fl (80-96); MEAN PLT VOLUME 8.2 fl (7.5-11.1); MONO % 12.9 % (3.8-10.2); NEUT % 56.5 % (42.8-82.8); PLATELET COUNT 336 10^3/uL (134-434); RDW 16.5 % (11.6-15.6); WHITE BLOOD COUNT 9.1 K/mm3 (4.0-10.0)
[2024-01-31 13:09] LABS: POTASSIUM 4.6 mmol/L (3.5-5.1)
[2024-01-31 13:11] LABS: CALCIUM 9.2 mg/dL (8.5-10.1)
[2024-01-31 13:12] LABS: ALBUMIN 2.9 g/dl (3.4-5.0); BLOOD UREA NITROGEN 17.5 mg/dL (7-18)
[2024-01-31 13:15] LABS: CREATININE 1.1 mg/dL (0.55-1.3)
[2024-01-31 13:16] LABS: TOT PROT 6.9 g/dl (6.4-8.2)
[2024-01-31 13:17] LABS: BILIRUBIN,TOTAL 0.2 mg/dL (0.2-1)
[2024-01-31 15:13] LABS: EPI CELLS 7 /uL (0-25.1); HYALINE CASTS 1 /uL (0-3.1); URINE APPEARANCE TURBID; URINE BACTERIA 3671 /uL (0-1359); URINE BILIRUBIN NEGATIVE (NEGATIVE); URINE COLOR YELLOW; URINE GLUCOSE (UA) NEGATIVE (NEGATIVE); URINE KETONE TRACE (NEGATIVE); URINE LEUK ESTERASE 3+ (NEGATIVE); URINE NITRITE POSITIVE (NEGATIVE); URINE PROTEIN TRACE (NEGATIVE); URINE RBC 62 /uL (0-23.9); URINE WBC 6026 /uL (0-25.8)
== END 2024-01-31 17:25 | disposition home or self-care (01) ==
LOC: JER 09:39
DX: R05.9 Cough, unspecified (principal); R09.89 Other specified symptoms and signs involving the circulatory and respiratory systems; Z20.822 Contact with and (suspected) exposure to COVID-19
CPT/HCPCS: 0241U-QW; 36415; 80053; 81003; 85025; 87086; 87186; 87651; 99283-25

== ENCOUNTER 2024-02-07 12:28 | Observation (INO) | payer OTHER ==
[2024-02-07] MEDS ORDERED: ACETAMINOPHEN INJECTION 100 ML IVPB ONE (13:05)
[2024-02-07] MEDS: SODIUM CHLORIDE 0.9% 500 ML INFUS.BAG IV ONE (13:12)
[2024-02-07] MEDS: ACETAMINOPHEN 1000 MG/100 ML BAG IVPB ONE (13:13)
[2024-02-07 13:43] LABS: HEMATOCRIT 36.2 % (32.4-45.2); HEMOGLOBIN 11.4 G/dL (10.7-15.3); MCH 32.6 pg (25.7-33.7); MCHC 31.5 g/dl (32.0-36.0); MEAN CELL VOLUME 103.3 fl (80-96); MEAN PLT VOLUME 8.4 fl (7.5-11.1); PLATELET COUNT 473.6 10^3/uL (134-434); RDW 16.1 % (11.6-15.6); WHITE BLOOD COUNT 8.4 10^3/uL (4.0-10.8)
[2024-02-07 14:05] LABS: PLATELET ESTIMATE SLT INCREASE
[2024-02-07 14:16] LABS: ALBUMIN 3.9 g/dl (3.4-5.0); BILIRUBIN,TOTAL 0.3 mg/dl (0.2-1); CALCIUM 9.8 mg/dl (8.5-10.1); CREATININE 1.7 mg/dl (0.6-1.3); POTASSIUM 4.2 mmol/L (3.5-5.1); TOT PROT 6.7 g/dl (6.4-8.2)
[2024-02-07] MEDS: HEPARIN NA (PORCINE) 5,000 UNITS/ML 1ML VIAL SQ SCH (21:19)
[2024-02-07] MEDS: LACTATED RINGERS SOLUTION 1,000 ML/1,000 ML INFUS.BAG IV SCH (21:22)
[2024-02-08 06:44] VITALS: PULSE 69
[2024-02-08] MEDS: LEVOTHYROXINE NA 50 MCG TABLET (FP) PO SCH (06:48)
[2024-02-08 07:57] LABS: HEMOGLOBIN 11.1 G/dL (10.7-15.3); MCH 32.8 pg (25.7-33.7); MCHC 31.7 g/dl (32.0-36.0); MEAN CELL VOLUME 103.5 fl (80-96); MEAN PLT VOLUME 8.4 fl (7.5-11.1); PLATELET COUNT 451.3 10^3/uL (134-434); RBC 3.38 10^6/uL (3.60-5.2); RDW 16.5 % (11.6-15.6); WHITE BLOOD COUNT 8.3 10^3/uL (4.0-10.8)
[2024-02-08 08:09] LABS: CALCIUM 8.9 mg/dl (8.5-10.1); CREATININE 1.2 mg/dl (0.6-1.3); MAGNESIUM 1.9 mg/dL (1.8-2.4); PHOSPHOROUS 2.4 (2.5-4.9); POTASSIUM 3.9 mmol/L (3.5-5.1)
[2024-02-08] MEDS: LORATADINE 10 MG TABLET PO SCH (10:19)
[2024-02-08 12:39] VITALS: BMI 17.5
[2024-02-08 14:28] VITALS: BP 112/72; RESP 18; TEMP 87.5
== END 2024-02-08 17:15 | disposition home or self-care (01) ==
LOC: FER 12:28 → INTOOBSV 13:56 → UNDOADMOB 13:56 → FM/S 13:56
PROVIDERS: ADMIT Internal Medicine
PROC: 3E03329 Introduction of Other Anti-infective into Peripheral Vein, Percutaneous Approach (ICD-10-PCS; principal; 2024-02-07)
PROC: 3E033NZ Introduction of Analgesics, Hypnotics, Sedatives into Peripheral Vein, Percutaneous Approach (ICD-10-PCS; 2024-02-07)
PROC: 3E023GC Introduction of Other Therapeutic Substance into Muscle, Percutaneous Approach (ICD-10-PCS; 2024-02-07)
PROC: 3E0337Z Introduction of Electrolytic and Water Balance Substance into Peripheral Vein, Percutaneous Approach (ICD-10-PCS; 2024-02-07)
DX: N17.9 Acute kidney failure, unspecified (principal); N39.0 Urinary tract infection, site not specified; G93.41 Metabolic encephalopathy; E34.328 Other genetic causes of short stature; R62.50 Unspecified lack of expected normal physiological development in childhood; I34.1 Nonrheumatic mitral (valve) prolapse; E03.9 Hypothyroidism, unspecified; Z90.49 Acquired absence of other specified parts of digestive tract; R56.9 Unspecified convulsions; K59.09 Other constipation; M81.0 Age-related osteoporosis without current pathological fracture
CPT/HCPCS: 36415; 71045-TC-FY; 80048; 80053; 81003; 82436; 82570; 83735; 84100; 84133; 84300; 85027; 87086; 87186; 96361; 96365; 96372; 96375; 99285-25; G0378; J0131; J1644

== ENCOUNTER 2024-05-08 09:51 | Emergency (ER) | payer OTHER ==
[2024-05-08 10:24] VITALS: BP 121/75; PULSE 84; RESP 18; TEMP 97.5; BMI 17.6
[2024-05-08] MEDS ORDERED: AMOX TR/POT CLAV 875MG/125MG TABLETS (FP) ONE (11:51)
[2024-05-08] MEDS ORDERED: AMOX TR/POTASSIUM CLAVULANATE 250 MG/5 ML BOTTLE ONE (12:01)
[2024-05-08] MEDS: AMOX TR/POTASSIUM CLAVULANATE 400 MG/5 ML BOTTLE PO ONE (12:14)
[2024-05-08] MEDS: AMOX TR/POT CLAV 875MG/125MG TABLETS (FP) PO ONE (12:15)
== END 2024-05-08 12:25 ==
LOC: FER 09:51
DX: R05.1 Acute cough (principal); R09.89 Other specified symptoms and signs involving the circulatory and respiratory systems; R11.10 Vomiting, unspecified
CPT/HCPCS: 71045-TC-FY; 81003; 87086; 99284-25

== ENCOUNTER 2024-05-28 19:37 | Emergency (ER) | payer OTHER ==
[2024-05-28 19:46] VITALS: RESP 19; BMI 17.6
[2024-05-28] MEDS ORDERED: ACETAMINOPHEN INJECTION 100 ML ONE (20:41)
[2024-05-28] MEDS: SODIUM CHLORIDE 0.9% 500 ML INFUS.BAG IV ONE (20:51)
[2024-05-28] MEDS: ACETAMINOPHEN 1000 MG/100 ML BAG IVPB ONE (20:52)
[2024-05-28 20:57] LABS: HEMATOCRIT 33.3 % (32.4-45.2); HEMOGLOBIN 10.9 G/dL (10.7-15.3); MCH 32.1 pg (25.7-33.7); MCHC 32.7 g/dl (32.0-36.0); MEAN CELL VOLUME 98.2 fl (80-96); MEAN PLT VOLUME 9.4 fl (7.5-11.1); PLATELET COUNT 376.2 10^3/uL (134-434); RBC 3.39 10^6/uL (3.60-5.2); WHITE BLOOD COUNT 7.3 10^3/uL (4.0-10.8)
[2024-05-28 21:24] LABS: ALBUMIN 3.8 g/dl (3.4-5.0); BILIRUBIN,TOTAL 0.2 mg/dl (0.2-1); CALCIUM 9.9 mg/dl (8.5-10.1); CREATININE 1.2 mg/dl (0.6-1.3); MAGNESIUM 1.7 mg/dL (1.8-2.4); PHOSPHOROUS 2.8 (2.5-4.9); POTASSIUM 4.3 mmol/L (3.5-5.1)
[2024-05-28] MEDS ORDERED: cefTRIAXone SODIUM 1 GM VIAL ONE (22:10)
[2024-05-28] MEDS: CEFTRIAXONE 1 GM in DEXTROSE 5%-WATER - 50 ML IVPB ONE (22:32)
[2024-05-28 23:32] VITALS: BP 112/72; PULSE 72; TEMP 97.8
== END 2024-05-28 23:11 | disposition home or self-care (01) ==
LOC: FER 19:37
PROC: 3E03329 Introduction of Other Anti-infective into Peripheral Vein, Percutaneous Approach (ICD-10-PCS; principal; 2024-05-28)
PROC: 3E033NZ Introduction of Analgesics, Hypnotics, Sedatives into Peripheral Vein, Percutaneous Approach (ICD-10-PCS; 2024-05-28)
DX: N30.90 Cystitis, unspecified without hematuria (principal); J39.8 Other specified diseases of upper respiratory tract; B97.89 Other viral agents as the cause of diseases classified elsewhere; R50.9 Fever, unspecified; Z20.822 Contact with and (suspected) exposure to COVID-19
CPT/HCPCS: 0241U-QW; 36415; 71045-TC-FY; 80053; 81003; 81015; 82550; 83605; 83735; 84100; 84484; 85027; 87040; 87086; 93005; 99285-25; J0131

== ENCOUNTER 2024-08-01 10:00 | Emergency (ER) | payer OTHER ==
[2024-08-01 10:27] VITALS: BP 145/81; PULSE 84; RESP 18; TEMP 97.5; BMI 17.6
[2024-08-01 11:15] LABS: EPITHELIAL CELLS 0-5 /hpf
[2024-08-01] MEDS: CEFPODOXIME PROXETIL 100 MG TABLET PO ONE (11:24)
[2024-08-01] MEDS ORDERED: ACETAMINOPHEN 325 MG TABLET (FP) ONE (11:26)
[2024-08-01] MEDS: ACETAMINOPHEN 325 MG TABLET (FP) PO ONE (11:31)
== END 2024-08-01 11:55 | disposition home or self-care (01) ==
LOC: FER 10:00
DX: N39.0 Urinary tract infection, site not specified (principal); R35.0 Frequency of micturition; R32 Unspecified urinary incontinence
CPT/HCPCS: 81003; 81015; 87086; 87186; 99283-25

== ENCOUNTER 2025-01-06 05:29 | Day surgery (SDC) | payer OTHER ==
[2025-01-03 16:14] VITALS: BMI 18.9
[2025-01-06] MEDS: ceFAZolin SODIUM 1 GM VIAL IVPB ONE
[2025-01-06 09:32] VITALS: BP 133/67; PULSE 64; RESP 18; TEMP 97.3
[2025-01-06] MEDS ORDERED: LIDOCAINE HCL 2% JELLY 11 ML TP ONE (11:33)
[2025-01-06] MEDS ORDERED: ONDANSETRON 4 MG/2 ML VIAL IVPUSH PRN (11:36)
[2025-01-06] MEDS ORDERED: LACTATED RINGERS SOLUTION 1,000 ML IV SCH (11:45)
== END 2025-01-06 12:36 ==
LOC: JASU-SURG 05:29
PROVIDERS: ATTEND Urology
PROC: 3E033GC Introduction of Other Therapeutic Substance into Peripheral Vein, Percutaneous Approach (ICD-10-PCS; principal; 2025-01-06)
DX: Z53.8 Procedure and treatment not carried out for other reasons (principal)